=== PATIENT | female | born 1940 | race Caucasian/White ===

== ENCOUNTER → 2021-07-14 05:00 | Outpatient (REF) | payer MEDICARE, MEDICAID, SELFPAY ==
[2021-07-14 08:41] LABS: Vitamin D,25 Hydroxy 33.6 ng/mL
== END ==
LOC: OLS.SW500 05:00
PROVIDERS: Visit Provider Family Medicine
DX: E55.9 Vitamin D deficiency, unspecified (principal)
CPT/HCPCS: 36415; 82306

== ENCOUNTER → 2021-07-24 01:00 | Outpatient (REF) | payer MEDICARE, MEDICAID, SELFPAY ==
[2021-07-24 06:09] LABS: Mucous, Urine 0 SEEN /hpf (<or=2+); Red Blood Cells-Urine 0 SEEN /hpf (0-5)
[2021-07-24 06:42] LABS: Color, Urine Yellow (Yellow); Glucose, Dipstick Normal (Normal); Ketone-Dipstick Negative (Negative); Leukocyte Esterase-Dipstick 25 /ul (Negative); Nitrite-Dipstick Negative (Negative); Occult Blood-Urine Negative /ul (Negative); Protein-Dipstick 100 mg/dl (Negative); Urine Bilirubin Dipstick Negative (Negative); Urine Clarity Clear (Clear); Urine Urobilinogen Normal (Normal); Urine pH 6.5 (5.0 - 8.0)
[2021-07-24 06:48] LABS: Bacteria 1+ /hpf (None Seen); Squamous Epithelial Cells - UA 0-5 SEEN /hpf (5-10); White Blood Cells 0-5 SEEN /hpf (0-5)
== END ==
LOC: OLS.SW500 01:00
PROVIDERS: Visit Provider Family Medicine
DX: N39.0 Urinary tract infection, site not specified (principal)
CPT/HCPCS: 81001; 87086; 87088

== ENCOUNTER → 2021-11-09 | Outpatient (REF) | payer MEDICARE, MEDICAID, SELFPAY | END | disposition home or self-care (01) | LOC: OLS.SW500 06:00 | PROVIDERS: Visit Provider Family Medicine | DX: J11.1 Influenza due to unidentified influenza virus with other respiratory manifestations (principal) | CPT/HCPCS: 87804 ==

== ENCOUNTER 2021-11-16 00:40 | Emergency (ER) | payer MEDICARE, MEDICAID, SELFPAY ==
[2021-11-16 00:42] VITALS: PULSE 62; TEMP 36.7; O2SAT 97; BMI 34.2
--- NOTE | 2021-11-16 00:55 | EX.ED.DYSGE1 ---
HPI History of Present Illness Chief Complaint: General Illness Narrative Narrative: Patient lost her farhat. I pronounced him about half an hour ago. She is quite anxious and needs something to calm down. This seems quite reasonable. She denies any other symptoms. PFSH PFSH Home Medications alprazolam [Xanax] 0.25 mg PO BID PRN #5 tab 11/16/21 [Rx Last Taken Unknown] Allergy/AdvReac Type Severity Reaction Status Date / Time No Known Allergies Allergy Verified 11/16/21 00:46 Social History Smoking Status: Never smoker ROS ROS ED ROS Narrative Past medical history: Reviewed Medications: Reviewed Social history: Noncontributory Review of systems: General: No fever Cardiovascular: No chest pain Respiratory: No shortness of breath or cough Neurological: No memory loss, confusion or any focal weakness Psych: As in HPI EXAM Physical Exam Narrative Exam Narrative: Physical exam General: Patient appears quite anxious, physically he does not appear in any distress Head: Normocephalic, Atraumatic Eyes: Conjunctiva not pale ENT: Moist mucous membranes Neck: Supple, Nontender, No lymphadenopathy Cardiovascular: Regular rate, Regular rhythm Respiratory: No distress, Skin: Normal color, No rash Neurological: No focal deficit Psychological: I have to repeat myself multiple times before she answers the question although she does answer appropriately. She keeps telling me to wake her up, but otherwise she seems relatively lucid and coherent although she seems quite shaken up. Const Vital Signs: 11/16/21 00:42 Temperature 98.0 F Temperature Source Temporal Pulse Rate 62 Pulse Ox 97 Oxygen Delivery Method Room Air MDM MDM MDM Narrative Medical decision making narrative: I believe it is quite reasonable for her to have a small amount of benzodiazepines given the circumstances. I will give her a tab here in 5 tabs for home. Discharge Plan Triage Chief Complaint: General Illness ED Provider: Grabiel Manuel Dx/Rx/DC Orders Clinical Impression: Anxiety, Bereavement Instructions: Grief and Loss, ED Grief Reaction Prescriptions: New alprazolam [Xanax] 0.25 mg tablet 0.25 mg PO BID PRN (Reason: anxiety) Qty: 5 RF: 0 Primary Care Provider: Grabiel Cox Referrals: Grabiel Cox MD [Primary Care Provider] - 2 Days Disposition Disposition: Home, Self Care
[2021-11-16] MEDS: ALPRAZolam 0.25 MG Tablet 0.125 MG PO (01:15)
== END 2021-11-16 01:27 | disposition home or self-care (01) ==
PROVIDERS: Emergency Provider Emergency Medicine; PCP Family Medicine; Visit Provider Emergency Medicine
DX: F41.9 Anxiety disorder, unspecified (principal); Z63.4 Disappearance and death of family member
CPT/HCPCS: 99281; 99283

== ENCOUNTER → 2022-04-14 | Outpatient (REF) | payer MEDICARE, MEDICAID, SELFPAY ==
[2022-04-14 09:25] LABS: Hematocrit 33.1 % (37-47); Hemoglobin 11.1 g/dL (12.0-15.0); Mean Corp Hgb Conc 33.5 g/dL (32-36); Mean Corpuscular Hgb 29.9 pg (27.0-32.0); Mean Corpuscular Volume 89.2 fL (81-99); Mean Platelet Vol. 10.4 fl (6.2-12.0); Platelet Count 175 K/mm3 (150-450); RBC Distribution Width CV 13.4 % (11.6-14.6); RBC Distribution Width SD 43.9 fl (35.1-43.9); Red Blood Count 3.71 M/mm3 (4.2-5.4); White Blood Count 4.5 K/mm3 (4.4-11.0)
[2022-04-14 09:44] LABS: Anion Gap 6 (5-15); BUN 30 mg/dL (7-18); Calcium,Total 9.2 mg/dL (8.5-10.1); Chloride 105 mmol/L (98-107); Creatinine, Serum 1.11 mg/dL (0.55-1.02); EST Glomerular Filtration Rate 50 mL/min (>60); Est Glom Filt Rate - Afr Amer 61 mL/min (>60); Glucose 96 mg/dL (74-106); Potassium 4.5 mmol/L (3.5-5.1); Sodium Level 139 mmol/L (136-145)
== END ==
LOC: OLS.SW500 05:00
PROVIDERS: PCP Family Medicine; Visit Provider Family Medicine
DX: E11.9 Type 2 diabetes mellitus without complications (principal); I10 Essential (primary) hypertension
CPT/HCPCS: 36415; 80048; 85027

== ENCOUNTER → 2022-05-18 | Outpatient (REF) | payer MEDICARE, MEDICAID, SELFPAY ==
[2022-05-18 09:01] LABS: Hemoglobin A1c 6.8 % (3.8-5.6)
== END ==
LOC: OLS.SW500 07:00
PROVIDERS: PCP Family Medicine; Visit Provider Family Medicine
DX: E11.9 Type 2 diabetes mellitus without complications (principal)
CPT/HCPCS: 36415; 83036

== ENCOUNTER → 2022-08-16 | Outpatient (CLI) | payer MEDICARE, MEDICAID, SELFPAY ==
--- NOTE | 2022-08-16 13:09 | CT_ITS ---
INDICATION: CALCULUS OF KIDNEY EXAMINATION: CT ABDOMEN AND PELVIS WITHOUT CONTRAST - CT Abdomen And Pelvis W/O Contrast Injection TECHNIQUE: Helically acquired images were obtained of the abdomen and pelvis without oral or IV contrast. A radiation dose optimization technique was used for this scan. IV Contrast dosage and agent: None. Oral contrast: None. COMPARISON: None. FINDINGS: LOWER CHEST: There is a small right pleural effusion. The lack of intravenous contrast limits evaluation of solid visceral organs. LIVER: Homogeneous. No focal mass. GALLBLADDER AND BILIARY TREE: There is nonvisualization of the gallbladder. PANCREAS: No focal cystic or solid mass. SPLEEN: Normal size without focal cystic or solid mass. ADRENAL GLANDS: No nodules. KIDNEYS AND URETERS: Normal renal size and position. No hydronephrosis. PERITONEUM: No ascites or free air. No other fluid collection. BOWEL: No evidence of acute appendicitis. No stomach or bowel distension. There are diverticula arising from the colon No focal inflammatory change. LYMPH NODES: No enlarged mesenteric or retroperitoneal lymph nodes. VESSELS: Aorta is non-dilated. There are peripheral calcifications of the abdominal aorta. URINARY BLADDER: Unremarkable. REPRODUCTIVE ORGANS: No pelvic masses. ABDOMINAL WALL: No discrete abdominal or pelvic wall hernia. 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 There are degenerative changes of the lumbar spine. There is a L3 inferior endplate deformity that appears chronic. CT/Abdomen/Pelvis without Cont IMPRESSION: Atherosclerosis. Multilevel degenerative disc disease of the lumbar spine. Colonic diverticulosis. Small right pleural effusion. Electronically Signed: Viviane Mckenzie MD at 13:57 EST ,
== END | disposition home or self-care (01) ==
LOC: CT 13:06
PROVIDERS: PCP Family Medicine; Visit Provider Urology
DX: N20.0 Calculus of kidney (principal); M51.36 Other intervertebral disc degeneration, lumbar region; K57.30 Diverticulosis of large intestine without perforation or abscess without bleeding; Z96.642 Presence of left artificial hip joint
CPT/HCPCS: 74176

== ENCOUNTER → 2022-11-17 | Outpatient (REF) | payer MEDICARE, MEDICAID, SELFPAY ==
[2022-11-17 07:41] LABS: Hemoglobin A1c 7.2 % (3.8-5.6)
== END ==
LOC: OLS.SW 05:00
PROVIDERS: PCP Family Medicine; Visit Provider Family Medicine
DX: E11.9 Type 2 diabetes mellitus without complications (principal)
CPT/HCPCS: 36415; 83036

== ENCOUNTER → 2023-05-18 | Outpatient (REF) | payer MEDICARE, MEDICAID, SELFPAY ==
[2023-05-18 09:22] LABS: Hemoglobin A1c 7.4 % (3.8-5.6)
== END ==
LOC: OLS.SW 07:10
PROVIDERS: PCP Family Medicine; Visit Provider Family Medicine
DX: E11.9 Type 2 diabetes mellitus without complications (principal)
CPT/HCPCS: 36415; 83036

== ENCOUNTER → 2023-08-17 | Outpatient (REF) | payer MEDICARE, SELFPAY ==
--- OUTSIDE RECORDS SUMMARY | 2023-08-17 05:47 | XMS RPT_ITS | CCD ---
Author Name Unknown Address [address] [facility] [address] [place] [address] Organization [facility] Care Team Providers Care Portable Canteen Operator Name Role Phone Phillip Carlisle Primary Care Provider [phone] Medications Current Medications Medication Drug Class(es) Dates Sig (Normalized) Sig (Original) acetaminophen 500 mg oral tablet (4 sources) Start: 04-10-2021 take 2 tablets by mouth every eight hours acetaminophen (TYLENOL) 500 MG tablet Take 2 tablets by mouth every 8 hours 120 tablet 0 04/10/2021 Active Completed/Discontinued Medications Medication Drug Class(es) Dates Sig (Normalized) Sig (Original) acetaminophen 325 mg / HYDROcodone bitartrate 5 mg oral tablet (1 source) Opioid Agonist Start: 04-06-2021 End: 04-06-2021 HYDROcodone-acetam inophen (NORCO) 5-325 MG per tablet 1 tablet Problems Active Problems Problem Classification Problem Date Documented Date Episodic/Chronic Acute and unspecified renal failure (2 sources) Acute injury of kidney; Translations: [AVE (acute kidney injury)] Onset: 04-03-2020 04-03-2020 Acute cerebrovascular disease (11 sources) 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; Translations: [Occipital cerebral infarction] Onset: 04-02-2015 04-02-2020 Chronic Delirium, dementia, and amnestic and other cognitive disorders (3 sources) Dementia; Translations: [Unspecified dementia without behavioral disturbance] Chronic Diabetes mellitus with complications (8 sources) Neuropathy due to type 2 diabetes mellitus; Translations: [Type 2 diabetes mellitus with diabetic neuropathy, unspecified] 04-02-2020 Chronic Diabetes mellitus without complication (9 sources) Type 2 diabetes mellitus; Translations: [Type 2 diabetes mellitus with other diabetic neurological complication] Onset: 05-12-2015 Resolved: 07-10-2015 07-10-2015 Chronic Disorders of lipid metabolism (5 sources) Mixed hyperlipidemia; Translations: [Mixed hyperlipidemia] 04-02-2015 Chronic E Codes: Fall (7 sources) Fall from bed, initial encounter; Translations: [Accidental fall from bed] Resolved: 04-09-2021 11-06-2020 Episodic Esophageal disorders (4 sources) Gastroesophageal reflux disease; Translations: [Gastro-esophageal reflux disease without esophagitis] Onset: 08-08-2006 10-27-2017 Chronic Essential hypertension (7 sources) Essential hypertension; Translations: [Hypertensive disorder] 04-02-2020 Chronic Fracture of lower limb (13 sources) Closed fracture of tibia AND fibula; Translations: [Unspecified fracture of shaft of left tibia, initial encounter for closed fracture] Onset: 03-08-2021 Resolved: 04-09-2021 Episodic Late effects of cerebrovascular disease (6 sources) Late effects of cerebrovascular disease; Translations: [Visual field defect due to and following cerebrovascular accident] Onset: 02-05-2015 10-27-2017 Chronic Miscellaneous mental health disorders (1 source) Confusional state; Translations: [Confusion] Chronic Nutritional deficiencies (1 source) Vitamin D deficiency; Translations: [Vitamin D deficiency, unspecified] 04-10-2021 Chronic Occlusion or stenosis of precerebral arteries (7 sources) Carotid artery stenosis; Translations: [Occlusion and stenosis of left carotid artery] Onset: 11-15-2016 Resolved: 09-03-2018 09-03-2018 Chronic Other and ill-defined cerebrovascular disease (1 source) Occipital cerebral infarction; Translations: [Occipital cerebral infarction] Onset: 04-02-2015 12-15-2015 Chronic Other and ill-defined cerebrovascular disease (3 sources) Cerebral ischemia; Translations: [Acute cerebrovascular insufficiency] Onset: 12-05-2020 12-05-2020 Chronic Other circulatory disease (5 sources) H/O: TIA; Translations: [Personal history of transient ischemic attack (TIA), and cerebral infarction without residual deficits] 12-15-2015 Episodic Other congenital anomalies (1 source) Congenital ichthyosis of skin; 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] Onset: 10-27-2017 10-27-2017 Chronic Other congenital anomalies (3 sources) Ichthyosis; Translations: [Congenital ichthyosis, unspecified] Onset: 10-27-2017 10-27-2017 Chronic Other connective tissue disease (3 sources) Recurrent falls ; Translations: [Repeated falls] Onset: 04-06-2021 Episodic Other diseases of bladder and urethra (4 sources) Overactive bladder; Translations: [Overactive bladder] 07-22-2016 Chronic Other nervous system disorders (5 sources) Disorder of brain; Translations: [Encephalopathy, unspecified] Onset: 04-02-2020 04-02-2020 Chronic Other nutritional; endocrine; and metabolic disorders (5 sources) Morbid obesity; Translations: [Morbid (severe) obesity due to excess calories] Onset: 09-05-2019 04-02-2020 Chronic Spondylosis; intervertebral disc disorders; other back problems (1 source) Lumbar disc prolapse with radiculopathy; Translations: [Lumbar disc disease with radiculopathy] Onset: 08-08-2010 10-27-2017 Chronic Unclassified (2 sources) Protein level - finding; Translations: [Elevated troponin] Onset: 04-02-2020 04-02-2020 Urinary tract infections (3 sources) Recurrent urinary tract infection; Translations: [Urinary tract infection, site not specified] Onset: 04-10-2021 Episodic Past or Other Problems Problem Classification Problem Date Documented Date Episodic/Chronic Acute and unspecified renal failure (3 sources) Acute injury of kidney; Translations: [Acute kidney failure, unspecified] Onset: 04-03-2020 04-03-2020 Episodic Blindness and vision defects (4 sources) Left homonymous hemianopsia; Translations: [Homonymous bilateral field defects, left side] Onset: 02-05-2015 07-22-2016 Episodic Diabetes mellitus without complication (6 sources) Hyperglycemia; Translations: [Hyperglycemia, unspecified] Onset: 04-02-2020 04-02-2020 Episodic Fluid and electrolyte disorders (6 sources) Hyponatremia; Translations: [Hypo-osmolality and hyponatremia] Onset: 04-02-2020 04-02-2020 Episodic Malaise and fatigue (4 sources) Decline in functional status; Translations: [Other malaise] Onset: 11-04-2020 11-05-2020 Episodic Occlusion or stenosis of precerebral arteries (1 source) Bilateral carotid artery stenosis; Translations: [Bilateral carotid artery stenosis] Onset: 11-15-2016 Resolved: 09-03-2018 09-03-2018 Other aftercare (3 sources) Patient encounter status; Translations: [long-term (current) use of non-steroidal anti-inflammatories (NSAID)] Resolved: 10-27-2017 10-27-2017 Episodic Other connective tissue disease (5 sources) Neurological symptom; Translations: [Unspecified symptoms and signs involving the nervous system] Onset: 04-01-2020 04-01-2020 Episodic Other connective tissue disease (3 sources) Pain in left foot; Translations: [Pain in left foot] Onset: 11-05-2020 11-05-2020 Episodic Other hematologic conditions (3 sources) Protein level - finding; Translations: [Other specified abnormalities of plasma proteins] Onset: 04-02-2020 Resolved: 05-02-2020 05-02-2020 Episodic Other injuries and conditions due to external causes (4 sources) H/O: hip fracture; Translations: [Personal history of (healed) traumatic fracture] Onset: 10-20-2015 12-15-2015 Episodic Residual codes; unclassified (5 sources) Noncompliance with treatment; Translations: [Patient's noncompliance with other medical treatment and regimen] Onset: 04-02-2020 04-02-2020 Episodic Spondylosis; intervertebral disc disorders; other back problems (3 sources) Lumbar disc prolapse with radiculopathy; Translations: [Intervertebral disc disorders with radiculopathy, lumbar region] Onset: 08-08-2010 10-27-2017 Episodic Unclassified (1 source) Patient encounter status; Translations: [Encounter for long-term (current) use of non-steroidal anti-inflammatories] Resolved: 10-27-2017 10-27-2017 Results Test Name Value Interpretation Reference Range Facil ity Vital Signs Date Time Vital Sign Value Performing Clinician Faci lity 04-10-2021 06:44-0400 Body temperature 98.4 [degF] Namrata Medina MD Work Phone: [facility] Work Phone: 04-10-2021 06:44-0400 Diastolic blood pressure 85 mm[Hg] Namrata Medina MD [facility] Phone[facility] Work Phone: 04-10-2021 06:44-0400 Heart rate 84 /min Namrata Medina MD Work Phone: [facility] Work Phone: 04-10-2021 06:44-0400 Respiratory rate 18 /min Namrata Medina MD Work Phone: [facility] Work Phone: 04-10-2021 06:44-0400 SaO2% (BldA) [Mass fraction] 97 % Namrata Medina MD Work Phone: [facility] Work Phone: 04-10-2021 06:44-0400 Systolic blood pressure 141 mm[Hg] Namrata Medina MD Work Phone: [facility] Work Phone: 04-08-2021 06:06-0400 Body mass index (BMI) [Ratio] 34.23 kg/m2 Namrata Medina MD Work Phone: [facility] Work Phone: 04-08-2021 06:06-0400 Body weight 93.31 kg Namrata Medina MD Work Phone: [facility] Work Phone: 04-06-2021 02:40-0400 Body height 165.1 cm Namrata Medina MD Work Phone: [facility] Work Phone: 04-05-2020 12:16-0400 BP Diastolic 84 mm[Hg] [facility] [place], [place] 04-05-2020 12:16-0400 BP Systolic 185 mm[Hg] [facility] [place] [facility] [place] 04-05-2020 12:16-0400 Pulse (Heart Rate) 97 /min [facility] [place] 04-05-2020 12:16-0400 Pulse [facility] 99 % [facility] [place] 04-05-2020 12:13-0400 Body Temperature 97.5 [degF] [facility] [place] 04-05-2020 12:13-0400 Respiratory Rate 18 /min Ji Garcia [facility] [place], [place] 04-03-2020 14:54-0400 Height 160 cm Ji Garcia [place], [place] 04-01-2020 20:02-0400 BMI (Body Mass Index) 38.44 kg/m2 [facility] [place] 04-01-2020 20:02-0400 [facility] [place] [place] Encounters Encounter Date Encounter Type Care Provider Facility Start: 05-22-2021 End: 05-22-2021 Subsequent hospital visit by physician Gee Hagen MD Work Phone: [facility] Radiology Start: 04-06-2021 End: 04-10-2021 Evaluation and management of inpatient Namrata Medina MD Work Phone: [facility] Procedures Date Procedure Procedure Detail Performing Clinician Start: 04-10-2021 Gluc bld gluc mntr d ev cleared fda spec home use Mihai Conklin DO Work Phone: Start: 04-10-2021 Gluc bld gluc mntr d ev cleared fda spec home use Mihai Conklin DO Work Phone: Start: 04-10-2021 Gluc bld gluc mntr d ev cleared fda spec home use Yaneth Varela MD Work Phone: Start: 04-09-2021 Gluc bld gluc mntr d ev cleared fda spec home use Yaneth Varela MD Work Phone: Start: 04-09-2021 Gluc bld gluc mntr d ev cleared fda spec home use Yaneth Varela MD Work Phone: Start: 04-09-2021 25 hydroxy includes fractions if performed Ines Morris CNP Work Phone: Start: 04-09-2021 ADD ON LAB TEST Ines Morris CNP Work Phone: Start: 04-09-2021 Gluc bld gluc mntr d ev cleared fda spec home use Yaneth Varela MD Work Phone: Start: 04-09-2021 Glucose quantitative blood xcpt reagent strip Yaneth Varela MD Work Phone: Start: 04-09-2021 BASIC METABOLIC PANE L W/ REFLEX TO MG FOR LOW K Jenaro Jorgensen MD Work Phone: Start: 04-09-2021 Blood count complete automated Jenaro Jorgensen MD Work Phone: Start: 04-08-2021 Glucose quantitative blood xcpt reagent strip Yaneth Varela MD Work Phone: Start: 04-08-2021 Glucose quantitative blood xcpt reagent strip Yaneth Varela MD Work Phone: Start: 04-08-2021 Gluc bld gluc mntr d ev cleared fda spec home use Yaneth Varela MD Work Phone: Start: 04-08-2021 Gluc bld gluc mntr d ev cleared fda spec home use Yaneth Varela MD Work Phone: Start: 04-08-2021 Basic metabolic pane l calcium total Jenaro Jorgensen MD Work Phone: Start: 04-07-2021 OPERATIVE REPORT 3m Sca nning Start: 04-07-2021 Gluc bld gluc mntr d ev cleared fda spec home use Yaneth Varela MD Work Phone: Start: 04-07-2021 Radiologic examinati on tibia & fibula 2 views Jenaro Jorgensen MD Work Phone: Start: 04-07-2021 Gluc bld gluc mntr d ev cleared fda spec home use Yaneth Varela MD Work Phone: Start: 04-07-2021 Gluc bld gluc mntr d ev cleared fda spec home use Yaneth Varela MD Work Phone: Start: 04-07-2021 Gluc bld gluc mntr d ev cleared fda spec home use Yaneth Varela MD Work Phone: Start: 04-07-2021 BASIC METABOLIC PANE L W/ REFLEX TO MG FOR LOW K Jenaro Jorgensen MD Work Phone: Start: 04-07-2021 Blood count complete automated Jenaro Jorgensen MD Work Phone: Start: 04-06-2021 End: 04-06-2021 Gluc bld gluc mntr dev cleared fda spec home use Yaneth Varela MD Work Phone: Start: 04-06-2021 Gluc bld gluc mntr d ev cleared fda spec home use Namrata Medina MD Work Phone: Start: 04-06-2021 Gluc bld gluc mntr d ev cleared fda spec home use Petra Gerardozmin DO Work Phone: Start: 04-06-2021 Ct lower extremity w /o contrast material Gurpreet Negrete MD Work Phone: Start: 04-06-2021 Antibody screen Namrata Medina MD Work Phone: Start: 04-06-2021 Blood typing serologic abo Gurpreet Negrete MD Work Phone: Start: 04-06-2021 Prothrombin time Indira Negrete MD Work Phone: Start: 04-06-2021 Radiologic exam ches t single view Gurpreet Negrete MD Work Phone: Start: 04-06-2021 ORTHOPEDIC INJURY TREATMENT Namrata Medina MD Work Phone: Start: 04-06-2021 Ecg routine ecg w/le ast 12 lds w/i&r Gurpreet Negrete MD Work Phone: Start: 04-06-2021 End: 04-06-2021 Radex hip unilateral with pelvis 2-3 views Namrata Medina MD Work Phone: Start: 04-06-2021 Basic metabolic pane l calcium total Namrata Medina MD Work Phone: Start: 12-15-2020 Radex hip unilateral with pelvis 2-3 views Phillip Carlisle DO Work Phone: Start: 04-05-2020 End: 04-05-2020 Gluc bld gluc mntr dev cleared fda spec home use Nimrit K Lotey Work Phone: Start: 04-05-2020 Assay of magnesium Bran avan Ragunanthan Work Phone: Start: 04-05-2020 Assay of phosphorus inorganic Branavan Ragunanthan Work Phone: Start: 04-05-2020 Blood count complete auto&auto difrntl wbc Branavan Ragunanthan Work Phone: Start: 04-05-2020 Blood count complete automated Branavan Ragunanthan Work Phone: Start: 04-04-2020 Gluc bld gluc mntr d ev cleared fda spec home use Nimrit K Lotey Work Phone: Start: 04-04-2020 Gluc bld gluc mntr d ev cleared fda spec home use Nimrit K Lotey Work Phone: Start: 04-04-2020 Gluc bld gluc mntr d ev cleared fda spec home use Nimrit K Lotey Work Phone: Start: 04-04-2020 Gluc bld gluc mntr d ev cleared fda spec home use Nimrit K Lotey Work Phone: Start: 04-04-2020 Duplex scan extracra nial art compl bi study Izabela Pond Work Phone: Start: 04-04-2020 Assay of magnesium Bran avan Ragunanthan Work Phone: Start: 04-04-2020 Assay of phosphorus inorganic Branavan Ragunanthan Work Phone: Start: 04-04-2020 Assay of troponin quantitative Nimrit K Lotey Work Phone: Start: 04-04-2020 Blood count complete auto&auto difrntl wbc Branavan Ragunanthan Work Phone: Start: 04-04-2020 Blood count complete automated Branavan Ragunanthan Work Phone: Start: 04-03-2020 Gluc bld gluc mntr d ev cleared fda spec home use Sonalrit Payal Samaniego Work Phone: Start: 04-03-2020 Us retroperitoneal r eal time w/image limited Sonalrit Payal Samaniego Work Phone: Start: 04-03-2020 Gluc bld gluc mntr d ev cleared fda spec home use Ji Osman Work Phone: Start: 04-03-2020 Echo tthrc r-t 2d w/ wom-mode compl spec&colr d Sonalrit Payal Samaniego Work Phone: Start: 04-03-2020 Assay of urea nitrogen urine Sonalridominique Moe Jildynoelle Work Phone: Start: 04-03-2020 Creatinine other source [employer]io Moe Jildynoelle Work Phone: Start: 04-03-2020 Ecg routine ecg w/le ast 12 lds w/i&r Sonalrit Payal Jildynoelle Work Phone: Start: 04-03-2020 Gluc bld gluc mntr d ev cleared fda spec home use Sonalrit Payal Jildynoelle Work Phone: Start: 04-03-2020 Assay of troponin quantitative Basia Escobar Work Phone: Start: 04-03-2020 ADD ON LAB TEST Jovon Moe Jildynoelle Work Phone: Start: 04-03-2020 Assay of ammonia Clary N Cheek Work Phone: Start: 04-03-2020 Assay of magnesium Bran avan [employer] Work Phone: Start: 04-03-2020 Assay of phosphorus inorganic Branavan [employer] Work Phone: Start: 04-03-2020 Assay of troponin quantitative M Shiv Escobar Work Phone: Start: 04-03-2020 Blood count complete auto&auto difrntl wbc Branavan [email or web address] Work Phone: Start: 04-03-2020 25 hydroxy includes fractions if performed Sonalrit Payal Samaniego Work Phone: Start: 04-03-2020 Blood count complete automated Roberta Julian Work Phone: Start: 04-02-2020 EEG REPORT Constantino Mcneal Work Phone: Start: 04-02-2020 Assay of troponin quantitative Jovon Samaniego Work Phone: Start: 04-02-2020 Gluc bld gluc mntr d ev cleared fda spec home use iJ Osman Work Phone: Start: 04-02-2020 Mri brain brain stem w/o contrast material Roberta Julian Work Phone: Start: 04-02-2020 Gluc bld gluc mntr d ev cleared fda spec home use Nimrit Payal Samaniego Work Phone: Start: 04-02-2020 Radiologic exam abdo men 1 view Sonalrit Payal Samaniego Work Phone: Start: 04-02-2020 Iaad ia mult step me thod nos each organism Roberta Julian Work Phone: Start: 04-02-2020 STREP PNEUMONIAE ANTIGEN BarakSchoon [email or web address] Work Phone: Start: 04-02-2020 Drug screen class list a [employer]cr[employer]juan Julian Work Phone: Start: 04-02-2020 Urnls dip stick/tabl et rgnt auto w/o microscopy BarakSchoon Eliel Work Phone: Start: 04-02-2020 EEG Izabela Pond Work Phone: Start: 04-02-2020 Gluc bld gluc mntr d ev cleared fda spec home use Nimrit Payal Samaniego Work Phone: Start: 04-02-2020 Gluc bld gluc mntr d ev cleared fda spec home use Nimrit Payal Samaniego Work Phone: Start: 04-02-2020 Glucose quantitative blood xcpt reagent strip Roberta Julian Work Phone: Start: 04-02-2020 Culture bacterial quanttative colony count urine Roberta Julian Work Phone: Start: 04-02-2020 ADD ON LAB TEST Jovon Samaniego Work Phone: Start: 04-02-2020 Radiologic exam ches t single view Roberta Julian Work Phone: Start: 04-02-2020 Iadna respiratry pro be & rev trnscr 08-01 target Roberta Julian Work Phone: Start: 04-02-2020 Assay of magnesium Barak Julian Work Phone: Start: 04-02-2020 Assay of phosphorus inorganic Roberta Julian Work Phone: Start: 04-02-2020 Assay of thyroid sti mulating hormone tsh Roberta Julian Work Phone: Start: 04-02-2020 Assay of troponin quantitative Roberta Julian Work Phone: Start: 04-02-2020 Blood count complete auto&auto difrntl wbc Roberta Julian Work Phone: Start: 04-02-2020 Blood count complete automated Roberta Julian Work Phone: Start: 04-02-2020 Cyanocobalamin vitamin b-12 Roberta Julian Work Phone: Start: 04-02-2020 Hemoglobin glycosylated a1c Roberta Julian Work Phone: Start: 04-02-2020 Lipid panel Roberta chavez Work Phone: Start: 04-02-2020 Procalcitonin (pct) Bra mallika Julian Work Phone: Start: 04-02-2020 Thromboplastin time partial plasma/whole blood Roberta Julian Work Phone: Start: 04-02-2020 Gluc bld gluc mntr d ev cleared fda spec home use Ji Osman Work Phone: Start: 04-02-2020 Speech and language therapy regime Kareemjuan Desirekarishmapriya Work Phone: Start: 04-01-2020 Ecg routine ecg w/le ast 12 lds w/i&r Dimitrygodfrey Elías Work Phone: Start: 04-01-2020 POC BMP, WHOLE BLOOD Ch ristopher Morinhl Work Phone: Start: 04-01-2020 Assay of troponin quantitative Danielfreddy Morinhl Work Phone: Start: 04-01-2020 Blood count complete automated Danielfreddy Morinhl Work Phone: Start: 04-01-2020 Prothrombin time Dimitry angelicfreddy Osman Work Phone: Start: 04-01-2020 Thromboplastin time partial plasma/whole blood Ji Morinhl Work Phone: Start: 04-01-2020 Ct angiography head w/contrast/noncontrast Ji Osman Work Phone: Start: 04-01-2020 Ct head/brain w/o co ntrast material Dimitrygodfrey Elías Work Phone: Start: 04-01-2020 Ct perfusion w/contrast cbf Dimitrygodfrey Elías Work Phone: Start: 04-01-2020 Oxygen therapy [[facility] Data Set] Roberta Phippskarishmapriya Work Phone: Start: 04-01-2020 Gluc bld gluc mntr d ev cleared fda spec home use Ji Elías Work Phone: Plan of Treatment Date Care Activity Detail Author Start: 04-09-2022 Creatinine measurement Creatinine monitoring [employer] Work Phone: Start: 04-09-2022 Potassium monitoring Potassium monitoring [employer] Work Phone: Start: 12-05-2021 Creatinine measurement Creatinine monitoring [employer] Work Phone: Start: 12-05-2021 Lipid panel Lipid screen [employer] Work Phone: Start: 12-05-2021 Potassium monitoring Potassium monitoring [facility] Work Phone: Start: 06-26-2021 End: 06-26-2021 Patient encounter procedure 06/26/2021 Office Visit Orthopedic Surgery Gee Hagen MD [address] [facility] [place] [address] [place] [address] [phone] [facility] [place] Start: 06-26-2021 End: 06-26-2021 Nursing evaluation of patient and report 06/26/2021 Nurse Only Orthopedic Surgery [facility] [place] Start: 06-02-2021 End: 06-02-2021 Patient encounter procedure 06/02/2021 Office Visit Endocrinology Vandana Oscar, [employer] - [employer] OFFICER [address] [place] [address] [phone] [facility] Start: 04-08-2021 Influenza vaccination Flu vaccine (#1) [facility] Work Phone: Start: 04-02-2021 Creatinine measurement Creatinine monitoring [place], [place] Start: 04-02-2021 Lipid panel Lipid screen [place], [place] Start: 04-02-2021 Potassium monitoring Potassium monitoring [place], [place] Start: 03-06-2021 End: 03-06-2021 Patient encounter procedure 03/06/2021 Office Visit Family Medicine Phillip Carlisle, DO [address] [place] [id number] [phone] [facility] Start: 01-02-2021 End: 01-02-2021 Nursing evaluation of patient and report 01/02/2021 Nurse Only Family Medicine [facility] Start: 09-05-2020 Annual Wellness Visit (AWV) Annual Wellness Visit (AWV) [place], [place] Start: 04-08-2020 Influenza vaccination Flu vaccine (#1) [place] Start: 01-25-2019 Annual Wellness Visit (AWV) Annual Wellness Visit (AWV) [facility] Work Phone: Start: 1997 Screening for osteoporosis DEXA (modify frequency per FRAX score) [place], [place] Start: 1992 Shingles Vaccine (1 of 2) Shingles Vaccine (1 of 2) [place], [place] Start: 1961 DTaP/Tdap/Td vaccine (1 - Tdap) DTaP/Tdap/Td vaccine (1 - Tdap) [place], [place] Start: 1942 Hepatitis C screening Hepatitis C screen [facility] Work Phone: Basic Metabolic Pane l w/ Reflex to MG Basic Metabolic Panel w/ Reflex to MG Lab Routine Daily until discontinued starting 04/07/2021, 2 completed [facility] Work Phone: Immunizations Immunization Date Immunization Notes Care Provider Fa brent 06-02-2020 influenza, high dose seasonal, preservative-free Phillip Donelllla DO Work Phone: [facility] Work Phone: 06-02-2020 Influenza, Quadv, adjuvanted, 65 yrs +, IM, PF (Fluad) Phillip Donelllla DO Work Phone: [facility] Work Phone: 09-05-2019 influenza, high dose seasonal, preservative-free [facility], [place] 08-10-2018 influenza, high dose seasonal, preservative-free [facility], [place] 06-17-2017 influenza, high dose seasonal, preservative-free Phillip Petrilla DO Work Phone: [facility] Work Phone: 06-17-2017 influenza, injectabl e, quadrivalent, contains preservative [facility], [place] 07-22-2016 influenza, high dose seasonal, preservative-free Phillip Petrilla DO Work Phone: [facility] Work Phone: 07-22-2016 influenza, injectabl e, quadrivalent, contains preservative [facility], [place] 07-10-2015 pneumococcal conjuga te vaccine, 13 valent [place], [place] 05-12-2015 influenza virus vacc ine, unspecified formulation [place], [place] 06-01-2014 influenza, injectabl e, quadrivalent, contains preservative [place], [place] 01-02-2013 tetanus toxoid, adsorbed [facility], [place] 01-02-2013 tetanus toxoid, unspecified formulation [facility] , [place] 05-31-2011 influenza virus vacc ine, unspecified formulation [place], [place] 05-31-2011 influenza virus vacc ine, whole virus [place], [place] 05-31-2011 pneumococcal Conjuga te, unspecified formulation [place], [place] 05-01-2011 pneumococcal polysaccharide vaccine, 23 valent [place], [place] Payers Date Payer Category Payer Medicare [id number] [id number] [id number] Social History Date Type Detail Facility Start: 04-04-2020 End: 05-22-2021 Tobacco smoking status NHIS Never smoker [place], [place] Start: 04-04-2020 End: 05-22-2021 Tobacco use and exposure Never used [place], [place] Start: 04-04-2020 End: 05-22-2021 Alcohol intake Current non-drinker of alcohol (finding) [place], [place] Start: 03-01-2019 End: 06-09-2020 History SDOH Alcohol Frequency 1 [place], [place] Start: 1940 Sex Assigned At Not on file M [place], [place] Exposure to SARS-CoV -2 (event) Not sure [place], [place] Start: 04-08-2021 End: 05-22-2021 Alcohol intake [facility] Work Phone: Medical Equipment Procedure Code Equipment Code Equipment Origin al Text Equipment Identifier Dates 1 each by In Vit ro route 4 times daily Pt tests 4 times daily Dx 250.00 [id number] Start: 04-05-2020 End: 05-05-2020 1 each by In Vit ro route daily As needed. [id number] Start: 04-05-2020 1 each by Does n ot apply route daily [id number] Start: 04-05-2020 End: 06-22-2029 Test bid Dx 250.00 [id number] Start: 04-05-2020 Inject 1 each in to the skin 2 times daily for 5000 doses [id number] Start: 04-05-2020 End: 02-08-2027 1 each by In Vit ro route 4 times daily Pt tests 4 times daily Dx 250.00 [id number] Start: 11-15-2016 End: 04-05-2020 1 each by In Vit ro route daily As needed. [id number] Start: 06-17-2017 End: 04-05-2020 1 each by Does n ot apply route daily [id number] Start: 03-01-2019 End: 04-05-2020 Test bid Dx 250.00 [id number] Start: 06-17-2017 End: 04-05-2020 Inject 1 each in to the skin 2 times daily for 5000 doses [id number] Start: 09-05-2019 End: 04-05-2020 Inject 1 each in to the skin 2 times daily for 5000 doses [id number] Start: 12-05-2020 End: 10-10-2027 Discharge summary note 04-10-2021 Note Date & Type Note Facility 04-10-2021 Note Attestation signed by Mihai Conklin DO at 04/10/2021 12:54 PM Attending Supervising Physician's Attestation Statement The patient is a 80 y.o. female. I have performed a history and physical examination of the patient. I discussed the case with the physician acquisitions assistant. I reviewed the patient's Past Medical History, Past Surgical History, Medications, and Allergies. Chart reviewed No new issues Mild left ankle discomfort Physical Exam: Vitals: 04/08/21 1754 04/09/21 0608 04/09/21 1823 04/10/21 0644 BP: (!) 147/61 (!) 150/58 (!) 144/86 (!) 141/85 Pulse: 79 76 78 84 Resp: Temp: 98.1 ?F (36.7 ?C) 97.1 ?F (36.2 ?C) 97.2 ?F (36.2 ?C) 98.4 ?F (36.9 ?C) TempSrc: Temporal Temporal Temporal Temporal SpO2: 97% 97% 98% 97% Weight: Height: General Appearance: [x]NAD [x]Obese []Cachectic []Thin []Frail []ill-appearance Skin: Temperature []Warm []Cool / []Dry []Moist Rash []Yes []No Tattoo(s) []Yes []No Heent: Pupils round and react []Yes []No Sclera []Icteric [x]Non-Icteric Conjunctiva []Injected [x]Non-Injected Dentitian [][place] Teeth []Dentures []Poor dentition Oral Mucosa [][place] []Moist []Dry PALA []Yes []No Neck: Thyromegaly []Yes []No Jvd []Present []Absent Lungs: [x]Clear []Crackles []Wheezes [][place] Respiratory effort []Labored [x]Non-Labored Accessory muscle use []Yes []No Heart: [x]RRR []Irregularly Irregular []murmur present []murmur absent Abdomen: [x]Soft Bowel Sounds []Present []Absent []Diminished []Hyperactive []Hypoactive []Tender []Non-Tender []Distended [x]Non-distended Hernia []Present []Absent Hepatomegaly []Absent []Present Splenomegaly []Absent []Present []Surgical Scar present Extremities: Cyanosis []Present []Absent Upper extremity Edema []Absent []Present Lower extremity Edema []Absent []Present Neurologic: Seizure activity []Present [x]Absent Tremor []Present [x]Absent Follows Commands []Yes []No []Unresponsive to verbal Psych: Alert [x]yes []no Oriented []x0 []x1 []x2 []x3 Affect [x]Normal []Flat []Aggitated []Calm Suicidal [] Yes [] No Impression/Plan I reviewed and agree with the findings and plan documented in her note . Discussed with TCC. Stable for DC to SNF today. Appreciate endo rec's. >30 minutes was spent in caring for this patient in combination with CLA[facility] Discharge Summary with Discharge DayProgress Note Maryellen Eisenberg : 1940 ADMIT DATE: 04/06/2021 DISCHARGE DATE: 04/10/2021 PRIMARY CARE PHYSICIAN: Phillip Carlisle DO VISIT STATUS: Admission CODE STATUS: Full Code DISCHARGE DIAGNOSES: Active Problems: Type 2 diabetes mellitus without complication, with long-term current use of insulin (HCC) Essential hypertension Mixed hyperlipidemia History of TIA (transient ischemic attack) Hyperglycemia Hyponatremia Declining functional status Frequent falls Uncontrolled insulin-treated type 2 diabetes mellitus (HCC) Dementia without behavioral disturbance (HCC) Recurrent UTI Resolved Problems: Fall Closed left ankle fracture, initial encounter Closed displaced pilon fracture of left tibia with malunion Closed fracture of shaft of left fibula with malunion HOSPITAL COURSE: Pt is a 80 yo female with PMHx of HTN, HLD, AIDAN s/p CEA, CVA (w/ residual L sided deficits), T2DM, OAB, and GERD presenting after multiple falls at home. Found to have comminuted ankle Fx of the distal tibia and fibula for which she underwent reduction and fixation with intramedullary nail. She is to remain NWB on the LLE and follow up with Dr. Hagen in 2 weeks. Patient is being discharged in stable condition to SNF and agrees with plan. Understands importance of close follow up with orthopedics. The problems as detailed below were addressed on admission. Pain control with leona tylenol and prn oxycodone x 3 days, OARRS reviewed. #Comminuted Fx distal L tibial diaphysis, Comminuted Fx distal third L fibular shaft s/p day 3 reduction and fixation #OA #Functional Decline and frequent falls? - Follow up with Dr. Hagen in 2 weeks. Pt is to remain NWB in the LLE in the interim. Pain control?w/ scheduled tylenol and prn oxycodone with scheduled bowel regimen if using opiates. ? #Uncontrolled IDDMII w/ polyneuropathy & hyperglycemia? - Endo consulted d/t hyperglycemia, and insulin changed to lantus 50U nightly with humalog 15U TID WC ? #Hyponatremia - Improving, repeat BMP in ~ 1 week. Suspect related to Poor PO intake ? #HTN #HLD? - lisinopril 20mg qd, continue diltiazem 240mg BID - Continue atorvastatin 80mg qd ? #Hx CVA?w/ reported chronic LLE weakness #AIDAN s/p CEA -?Continue ASA. Stop plavix p (more content not included)... [facility] History of Present illness Narrative 04-10-2021 Sejal Marcelino, LINUX [employer]IX SYSTEM ADMINISTRATOR - 04/10/2021 10:05 AM Rowan Gold OTA - 04/10/2021 9:58 AM Jodie Andersen PA - 04/10/2021 9:33 AM Jodie Andersen PA - 04/09/2021 8:04 AM EDT Note Date & Type Note Facility 04-10-2021 History of Present illness Narrative Physical Therapy Facility/Department: [facility] Daily Treatment Note NAME: Maryellen Eisenberg : 1940 Date of Service: 04/10/2021 Discharge Recommendations: (facility based therapy) Assessment Body structures, Functions, Activity limitations: Decreased functional mobility ;Decreased ADL status;Decreased strength;Decreased cognition;Decreased balance;Decreased posture;Increased pain;Decreased endurance Assessment: Pt present with the above deficits requiring max assist x 2 for bed mobility and with attempts of standing. Pt most limited by cognition, resistant to stand. Rec facility based therapy upon discharge. Treatment Diagnosis: pt admitted with fall, closed fracture L tib/fib s/p IM maria isabel L distal tibial fracture 04/07 REQUIRES PT FOLLOW UP: Yes Activity Tolerance Activity Tolerance: Patient limited by cognitive status Patient Diagnosis(es): The primary encounter diagnosis was Closed fracture of left tibia and fibula, initial encounter. Diagnoses of Fall, initial encounter, Closed displaced comminuted fracture of shaft of left fibula with malunion, subsequent encounter, Closed displaced pilon fracture of left tibia with malunion, and Recurrent UTI were also pertinent to this visit. has a past medical history of Carotid artery occlusion with infarction ([facility]), Carotid artery stenosis, Colonoscopy refused, CVA (cerebral vascular accident) ([facility]), CVA, old, homonymous hemianopsia, Diabetic neuropathy associated with type 2 diabetes mellitus ([facility]), Dislocation of left shoulder joint, Essential hypertension, GERD with stricture, History of fracture of left hip, History of shingles, History of TIA (transient ischemic attack), Ichthyosis, Lumbar disc disease with radiculopathy, Mixed hyperlipidemia, and OAB (overactive bladder). has a past surgical history that includes Cholecystectomy (1984); Hysterectomy, total abdominal (N/A, 1984); Colonoscopy (2006); Carotid endarterectomy (Right, 2007); Hip fracture surgery (Left, 10/20/2015); and Cataract removal (Bilateral, 2011). Restrictions Restrictions/Precautions Restrictions/Precautions: Weight Bearing, Fall Risk Required Braces or Orthoses?: No Lower Extremity Weight Bearing Restrictions Left Lower Extremity Weight Bearing: Non Weight Bearing Position Activity Restriction Other position/activity restrictions: purewick, +bed alarm Subjective General Chart Reviewed: Yes Family / Caregiver Present: No Subjective Subjective: Pt in bed, HOB elevated, eyes closed and agreeable to PT with encouragement. Pain Screening Patient Currently in Pain: Yes (Initially pt said no pain but with movement c/o pain in left leg) Pain Assessment Pain Type: Acute pain Pain Location: Leg Pain Orientation: Left Objective Bed mobility Supine to Sit: Maximum assistance;2 Person assistance Sit to Supine: Maximum assistance;2 Person assistance Scooting: Maximal assistance;2 Person assistance Comment: HOB elevated and draw sheet used. Pt resistant with movement at times, encouragement needed. Transfers Comment: Multiple attempts with transfers, pt very resistant with attempts so then disposed transfers trial with each attempt, not safe. Balance Comments: sitting at EOB for several mins, UE support, pt with retrograde balance, max assist for balance and able to progress to min assist; dynamic sitting with bilateral weight shifting, min/mod assist for balance. AM-PAC Score [facility] Inpatient Mobility Raw Score : 6 (04/10/211004) [facility] Inpatient T-Scale Score : 23.55 (04/10/211004) Mobility Inpatient CMS 0-100% Score: 100 (04/10/211004) Mobility Inpatient CMS G-Code Modifier : CN (04/10/211004) Goals Short term goals Time Frame for Short term goals: 2 weeks Short term goal 1: indep supine <-> sit; not met Short term goal 2: min assist sit <-> stand NWB LLE; not met Short term goal 3: min assist ambulate 10ft with walker NWB LLE; not addressed Patient Goals Patient goals : to go home Plan Plan Times per week: 3-5x Plan weeks: 2 weeks Current Treatment Recommendations: Strengthening, Balance Training, Functional Mobility Training, Transfer Training, ADL/Self-care Training, Gait Training, Equipment Evaluation, Education, & procurement, Patient/Caregiver Education & Training, Safety Education & Training, Home Exercise Program Safety Devices Type of devices: Call light within reach, Gait belt, Patient at risk for falls, Left in bed, Bed alarm in place Therapy Time Individual Concurrent Group Co-treatment Time In 902 Time Out 09 Minutes 23 Timed Code Treatment Minutes: 23 Minutes (fa x 2) Sejal Marcelino PTA Occupational Therapy Facility/Department: [facility] Daily Treatment Note NAME: Maryellen Eisenberg : 1940 Date of Service: 04/10/2021 Discharge Recommendations: (Facility based therapies) Assessment Performance deficits / Impairments: Decreased coordination;Decreased endurance;Decreased ADL status;Decreased posture;Decreased functional mobility ;Decreased balance;Decreased strength;Decreased safe awareness;Decreased high-level IADLs;Decreased cognition Assessment: Pt confused and disoriented. Extra time given for encouragement to complete static spraying machine operator attempt to have patient sit in bedside chair. Recommend facility based therapy at d/c. Prognosis: Fair REQUIRES OT FOLLOW UP: Yes Safety Devices Safety Devices in place: Yes Type of devices: All fall risk precautions in place;Bed alarm in place;Call light within reach;Gait belt;Patient at risk for falls;Left in bed;Nurse notified Restraints Initially in place: No Patient Diagnosis(es): The primary encounter diagnosis was Closed fracture of left tibia and fibula, initial encounter. Diagnoses of Fall, initial encounter, Closed displaced comminuted fracture of shaft of left fibula with malunion, subsequent encounter, Closed displaced pilon fracture of left tibia with malunion, and Recurrent UTI were also pertinent to this visit. has a past medical history of Carotid artery occlusion with infarction ([facility]), Carotid artery stenosis, Colonoscopy refused, CVA (cerebral vascular accident) ([facility]), CVA, old, homonymous hemianopsia, Diabetic neuropathy associated with type 2 diabetes mellitus ([facility]), Dislocation of left shoulder joint, Essential hypertension, GERD with stricture, History of fracture of left hip, History of shingles, History of TIA (transient ischemic attack), Ichthyosis, Lumbar disc disease with radiculopathy, Mixed hyperlipidemia, and OAB (overactive bladder). has a past surgical history that includes Cholecystectomy (1984); Hysterectomy, total abdominal (N/A, 1984); Colonoscopy (2006); Carotid endarterectomy (Right, 2007); Hip fracture surgery (Left, 10/20/2015); and Cataract removal (Bilateral, 2011). Restrictions Restrictions/Precautions Restrictions/Precautions: Weight Bearing, Fall Risk Required Braces or Orthoses?: No Lower Extremity Weight Bearing Restrictions Left Lower Extremity Weight Bearing: Non Weight Bearing Position Activity Restriction Other position/activity restrictions: purewick, +bed alarm Subjective General Chart Reviewed: Yes Patient assessed for rehabilitation services?: Yes Family / Caregiver Present: No Diagnosis: Left tib/fib fx Subjective Subjective: Pt in bed. (+)Confusion, Left LE wrapped in an salvatore wrap. General Comment Comments: Therapist wore PPE in accordance with facility safety protocol Vital Signs Patient Currently in Pain: No Orientation Objective Balance Sitting Balance: Maximum assistance Standing Balance Comment: Min to max assist for static seated balance Bed mobility Supine to Sit: Maximum assistance;2 Person assistance Sit to Supine: Maximum assistance;2 Person assistance Scooting: Maximal assistance;2 Person assistance Comment: HOB elevated, pt flucuated in static seated EOB balance from min at 75% to mod/max 25%, draw sheet used. Multiple attempts for sit <> stand; pt adamently refused. Plan Plan Times per week: 3-5x/wk Plan weeks: 4 weeks Current Treatment Recommendations: Strengthening, Patient/Caregiver Education & Training, Home Management Training, Balance Training, Functional Mobility Training, Endurance Training, Cognitive Reorientation, Safety Education & Training, Self-Care / ADL, Cognitive/Perceptual Training Plan Comment: Follow OT POC Goals Short term goals Time Frame for Short term goals: 4 weeks Short term goal 1: LE dressing with use of AE prn with mod assist.-not addressed Short term goal 2: BSC transfer with min assist.-not addressed Short term goal 3: Static standing balance during unilateral UE task x 2-3 mins with supervision.- progressing Short term goal 4: Ox3, 100% of treatment time...may use visual aides.-progressing Patient Goals Patient goals : None stated. Therapy Time Individual Concurrent Group Co-treatment Time In 902 Time Out 925 Minutes 23 Timed Code Treatment Minutes: 23 Minutes (2 fun act) NNAMDI Car[place] Family Communication Number Called: [phone] Relationship to Patient: Daughter in law, Jessica Phone Call Outcome: I spoke with the individual listed above. Family Quality Coordinator Updated on the Following: A&P. Understands plan to stop nitrofurantoin and follow up as OP with urology. Agreeable to discharge today to SNF with insulin dose adjustments as noted in discharge summary. Images from the original note were not included. [facility] Progress Note Maryellen Eisenberg : 1940(80 y.o.) Date: 04/09/2021 8:04 AM Subjective: The patient complains of L ankle pain, ambulatory dysfunction Pt is a 80 yo female with PMHx of HTN, HLD, AIDAN s/p CEA, CVA (w/ residual L sided deficits), T2DM, OAB, and GERD presenting after 4 falls at home in the past two days. Found to have multiple comminuted ankle fx's for which she underwent L tibial intramedullary nail. Okay for diet and DVT prophylaxis per ortho. Denies ankle pain today however states that I wouldn't tell you even if it was there . States PO intake has been improving. Occasionally becomes tearful on exam upon realizing that she is being discharged to SNF, often requests to see family members during interview. Denies chest pain, SOB, abd pain, change in bowel or bladder habits. Scheduled Meds: insulin 70-30 35 Units SubCUTAneous BID insulin lispro 0-18 Units SubCUTAneous TID WC sodium chloride flush 5-40 mL IntraVENous 2 times per day atorvastatin 80 mg Oral Nightly dilTIAZem 240 mg Oral BID lisinopril 20 mg Oral Daily sodium chloride flush 10 mL IntraVENous 2 times per day enoxaparin 40 mg SubCUTAneous Daily acetaminophen 1,000 mg Oral 3 times per day Continuous Infusions: sodium chloride sodium chloride dextrose PRN Meds:oxyCODONE OR oxyCODONE, sodium chloride flush, sodium chloride, sodium chloride flush, sodium chloride, promethazine OR ondansetron, polyethylene glycol, sennosides-docusate sodium, glucose, dextrose, glucagon (rDNA), dextrose Review of Systems Constitutional: Negative for chills and fever. Respiratory: Negative for cough and shortness of breath. Cardiovascular: Negative for chest pain. Gastrointestinal: Negative for abdominal pain, constipation and diarrhea. Musculoskeletal: Positive for arthralgias and gait problem. Neurological: Negative for dizziness, weakness, light-headedness and numbness. Interval Pertinent History: Social History Tobacco Use Smoking status: Never Smoker Smokeless tobacco: Never Used Substance Use Topics Alcohol use: No Alcohol/week: 0.0 standard drinks Objective: Patient Vitals for the past 24 hrs: BP Temp Temp src Pulse Resp SpO2 04/09/21 0608 (!) 150/58 97.1 F (36.2 C) Temporal 76 17 97 % 04/08/21 1754 (!) 147/61 98.1 F (36.7 C) Temporal 79 19 97 % Average, Min, and Max for last 24 hours Vitals: TEMPERATURE: Temp Av.6 F (36.4 C) Min: 97.1 F (36.2 C) Max: 98.1 F (36.7 C) RESPIRATIONS RANGE: Resp Av Min: 17 Max: 19 PULSE RANGE: Pulse Av.5 Min: 76 Max: 79 BLOOD PRESSURE RANGE: Systolic (24hrs), Av , Min:147 , Max:150 ; Diastolic (24hrs), Av, Min:58, Max:61 PULSE OXIMETRY RANGE: SpO2 Av % Min: 97 % Max: 97 % No intake/output data recorded. Physical Exam Constitutional: General: She is not in acute distress. Appearance: She is obese. She is not ill-appearing. Comments: Cooperative elderly female resting in bed, appears comfortable. Eyes: Conjunctiva/sclera: Conjunctivae normal. Cardiovascular: Rate and Rhythm: Normal rate and regular rhythm. Pulses: Normal pulses. Heart sounds: Normal heart sounds. Pulmonary: Effort: Pulmonary effort is normal. Breath sounds: Normal breath sounds. Abdominal: General: Bowel sounds are normal. There is no distension. Palpations: Abdomen is soft. Tenderness: There is no abdominal tenderness. Musculoskeletal: General: Signs of injury present. Comments: LLE bandaged. Motor function and sensory function intact Skin: General: Skin is warm and dry. Neurological: Mental Status: She is alert. Motor: No weakness. Comments: A&O x 2 to self and location Psychiatric: Mood and Affect: Mood normal. Affect is tearful. Behavior: Behavior normal. Lab Results Component Value Date WBC 6.4 04/09/2021 HGB 9.2 (L) 04/09/2021 HCT 27.2 (L) 04/09/2021 MCV 84.3 04/09/2021 PLT 130 (L) 04/09/2021 Lab Results Component Value Date NA 130 04/09/2021 K 4.5 04/09/2021 CL 102 04/09/2021 CO2 22 04/09/2021 BUN 37 04/09/2021 CREATININE 0.99 04/09/2021 GLUCOSE 314 04/09/2021 CALCIUM 8.8 04/09/2021 Lab Results Component Value Date LABA1C 10.7 (A) 04/08/2021 Additional results of the last 24 hours have been reviewed. Assessment and Plan: Active Problems: Type 2 diabetes mellitus without complication, with long-term current use of insulin (HCC) Essential hypertension Mixed hyperlipidemia History of TIA (transient ischemic attack) Hyperglycemia Hyponatremia Declining functional status Fall Closed left ankle fracture, initial encounter Closed displaced pilon fracture of left tibia with malunion Closed fracture of shaft of left fibula with malunion Frequent falls Resolved Problems: * No resolved hospital problems. * #Comminuted oblique fracture of the distal L tibial diaphysis #Comminuted fracture of the distal third L fibular shaft #? L lateral malleolus fracture #OA #Functional Decline and frequent falls - XR L ankle with comminuted oblique Fx of the distal L tibial diaphysis with lateral displacement of the distal fracture fragment and slight overriding of the fracture fragments. - Comminuted fracture of the distal third fibular shaft with slight lateral angulation of the distal fracture fragment. - ? Area of subtle horizontal curvilinear lucency involving the lateral malleolus which may reflect a nondisplaced fracture - S/p day #2 intramedullary nail. Okay for DVT prophylaxis per ortho - PT/OT evals, placement recommended. Family selected facilities and precert pending - Pain control w/ scheduled tylenol and prn oxycodone. #Uncontrolled IDDMII w/ polyneuropathy & hyperglycemia - A1c 10.7 - Persistent hyperglycemia prompted endo consult, insulin regimen 45 U nightly, humalog 15U TID WC, medium dose SSI. Hypoglycemia treatment per protocol and carb control diet - Home doses TBD #Hyponatremia - Na 130, suspect 2/2 poor PO intake. If no improvement tomorrow will check urine studies #HTN #HLD - lisinopril 20mg qd, continue diltiazem 240mg BID - Continue atorvastatin 80mg qd #Hx CVA w/ reported chronic L-sided deficits #AIDAN s/p CEA - Continue ASA. Stop plavix per discussion with family #Hx Recurrent UTI per family - on chronic nitrofurantoin per PCP for 3 UTI's in the past year. Family agreeable to holding while admitted. Curbsided with ID yesterday who recommended discontinuing. - Family requested urology consult, will curbside today for recs and provide referral prn for OP follow up #Obesity Code Status: Full code DVTProphylaxis: SCDs Disposition:await showroom consultant recommendations and await placement I spent over 51% of total time providing counseling or incoordination of care: > 35 minutes discussed with nurse, patient and family updated, I personally examined the patient and I personally reviewed chart, data, labs radiology reports Discussed with Dr. Varela, will discuss with urology, updated pt's family Family Communication Number Called: [phone] Relationship to Patient: Daughter in law, Jessica Phone Call Outcome: I spoke with the individual listed above. Family Quality Coordinator Updated on the Following: A&P. Requested urology consult 7AM-4PM Please Perfect serve Jodie Minor PA-C 6PM-6AM please page: [facility] Internal Medicine Associated attestation - Yaneth Varela MD - 04/09/2021 4:09 PM EDT Attending Supervising Physician's Attestation Statement The patient is a 80 y.o. female. I have performed a history and physical examination of the patient. I discussed the case with the physician acquisitions assistant. Pt tearful today; asking if she will be able to go home. Says ankle pain is fine but is sick of being in the hospital. Per RN, family brought pt hot chocolate last night but otherwise doesn't think pt snacking on other foods. I reviewed the patient's Past Medical History, Past Surgical History, Medications, and Allergies. Physical Exam: Vitals: 04/07/21 2257 04/08/21 0606 04/08/21 1754 04/09/21 0608 BP: 113/88 (!) 157/72 (!) 147/61 (!) 150/58 Pulse: 86 104 79 76 Resp: Temp: 97.5 F (36.4 C) 98.3 F (36.8 C) 98.1 F (36.7 C) 97.1 F (36.2 C) TempSrc: Temporal Temporal Temporal Temporal SpO2: 97% 96% 97% 97% Weight: 205 lb 11.2 oz (93.3 kg) Height: General: NAD, obese, tearful HEENT: NC, AT Cardio: RRR, normal S1/S2. No MRG Pulm: CTAB. No wheezes or crackles Abd: Soft, NTTP, ND Ext: LLE wrapped. Impression/Plan I reviewed and agree with the findings and plan documented in her note . Acute L comminuted fx of distal tibia and distal fibula -Pt presented after fall and found to have fx. -Ortho consulted; reduction and fixation done 04/07. -PRN oxycodone. -PT/OT DM2 -Takes 70-30 at home and does 22u AM and 28u PM. -BS in 300-400s despite increase in insulin regimen. Consulting endocrine. Hx CVA -On ASA/plavix, however on chart review appears plavix should have been stopped 3 weeks after CVA per neuro notes (~ 04/2020). Discussion had w/ family and plavix stopped. HTN -Continue cardizem and lisinopril. Dispo: Likely ready tmrw pending improved BS control Rest of plan per PA note. I spent over 51% of total time providing counseling or in cooridnation of care: >35 minutes. I reviewed the chart, data, labwork, and images. Plan discussed w/ pt and PA. Department of Orthopedic Surgery Progress Note SUBJECTIVE: No acute events at this time. Patient confused and AOx1. OBJECTIVE: General: AOx1, NAD VITALS: BP (!) 150/58 Pulse 76 Temp 97.1 F (36.2 C) (Temporal) Resp 17 Ht 5' 5 (1.651 m) Wt 205 lb 11.2 oz (93.3 kg) SpO2 97% BMI 34.23 kg/m MSK exam: LLE: Dressing C/D/I Mild TTP about LLE, compartments soft/compressible No pain with passive stretch of left foot SILT S/S/SP/DP/T nerve distribution +Toe wiggle BCR to all 5 digits Labs: CBC: Lab Results Component Value Date WBC 6.4 04/09/2021 WBC 7.2 10/15/2015 RBC 3.23 04/09/2021 HGB 9.2 04/09/2021 HCT 27.2 04/09/2021 MCV 84.3 04/09/2021 MCH 28.4 04/09/2021 MCHC 33.7 04/09/2021 RDW 13.9 04/09/2021 PLT 130 04/09/2021 MPV 9.5 04/09/2021 BMP: Lab Results Component Value Date NA 134 04/08/2021 K 4.4 04/08/2021 CL 105 04/08/2021 CO2 21 04/08/2021 BUN 25 04/08/2021 LABALBU 3.9 12/05/2020 CREATININE 0.83 04/08/2021 CALCIUM 8.7 04/08/2021 GFRAA >60 10/15/2015 LABGLOM 48.1 04/01/2020 GLUCOSE 466 04/08/2021 Type and Screen: Lab Results Component Value Date LABABO O 04/06/2021 RH POS 04/06/2021 LABANTI NEG 04/06/2021 INR: Lab Results Component Value Date INR 1.0 04/06/2021 CRP: No results found for: CRP ESR: No results found for: SEDRATE ASSESSMENT AND PLAN: A/P: This is a 80 y.o. female s/p L Tibial IMN -No plans for RTOR -NWB LLE -Ok for diet from ortho perspective -Ok for DVT ppx from ortho perspective -PT/OT -Ice & elevate -Keep dressing c/d/i, ok to replace as necessary -Neurovascular/skin checks -f/u OP with Dr. Hagen in 2 weeks -Orthopedic surgery to sign off, please page network control operators supervisor resident with questions or concerns. Chuck Oreilly MD PGY-2 Orthopedic Surgery Pager [phone] Nutrition rescreen completed. Chart reviewed. Patient to be monitored and followed by the diet molding process technician. Physical Therapy Facility/Department: [facility] Initial Assessment NAME: Maryellen Eisenberg : 1940 Date of Service: 04/08/2021 Discharge Recommendations: (facility based therapy) Assessment Body structures, Functions, Activity limitations: Decreased functional mobility ;Decreased ADL status;Decreased strength;Decreased cognition;Decreased balance;Decreased posture;Increased pain Assessment: pt admitted with fall, closed fracture L tib/fib s/p IM maria isabel L distal tibial fracture 04/07. pt mod assist of 2 overall for functional mobility. pt limited by cognition - significant confusion and talked about jevon shermansite attempts to redirect. pt unable to maintain NWB LLE. recommend facility based therapy upon disch. Treatment Diagnosis: pt admitted with fall, closed fracture L tib/fib s/p IM maria isabel L distal tibial fracture 04/07 Decision Making: Medium Complexity REQUIRES PT FOLLOW UP: Yes Patient Diagnosis(es): The primary encounter diagnosis was Closed fracture of left tibia and fibula, initial encounter. A diagnosis of Fall, initial encounter was also pertinent to this visit. has a past medical history of Carotid artery occlusion with infarction (HCC), Carotid artery stenosis, Colonoscopy refused, CVA (cerebral vascular accident) ([facility]), CVA, old, homonymous hemianopsia, 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), Dislocation of left shoulder joint, Essential hypertension, GERD with stricture, History of fracture of left hip, History of shingles, History of TIA (transient ischemic attack), Ichthyosis, Lumbar disc disease with radiculopathy, Mixed hyperlipidemia, and OAB (overactive bladder). has a past surgical history that includes Cholecystectomy (1984); Hysterectomy, total abdominal (N/A, 1984); Colonoscopy (2006); Carotid endarterectomy (Right, 2007); Hip fracture surgery (Left, 10/20/2015); and Cataract removal (Bilateral, 2011). Restrictions Restrictions/Precautions Restrictions/Precautions: Weight Bearing, Fall Risk Required Braces or Orthoses?: No Lower Extremity Weight Bearing Restrictions Left Lower Extremity Weight Bearing: Non Weight Bearing Subjective General Chart Reviewed: Yes Patient assessed for rehabilitation services?: Yes Family / Caregiver Present: No Diagnosis: pt admitted with fall, closed fracture L tib/fib s/p IM maria isabel L distal tibial fracture 04/07 Pain Screening Patient Currently in Pain: Yes (left leg once positioning back in bed, unable to provide number rating) Orientation Orientation Orientation Level: Oriented to place;Oriented to person;Disoriented to time (oriented to fall, reoriented to surg and lef fracture,) Social/Functional History Social/Functional History Lives With: () Type of Home: House Home Layout: One level Home Access: Stairs to enter with rails Entrance Stairs - Number of Steps: 1-2 Bathroom Shower/Tub: Tub/Shower unit, Shower chair with back Bathroom Toilet: Standard Bathroom Equipment: Shower chair Bathroom Accessibility: Accessible Home Equipment: (FWW) Receives Help From: Family ADL Assistance: Needs assistance Homemaking Assistance: Needs assistance Ambulation Assistance: Independent Transfer Assistance: Independent Active Service Architect: No Occupation: Retired Additional Comments: Assist with ADL's. Assist with cooking, cleaning, & laundry. Family assists with transportation needs. Transfers with indep. Amb with FWW. Cognition Cognition Arousal/Alertness: Delayed responses to stimuli Following Commands: Follows one step commands with repetition;Follows one step commands with increased time Attention Span: Difficulty attending to directions Memory: Decreased recall of biographical Information;Decreased recall of precautions;Decreased recall of recent events Safety Judgement: Decreased awareness of need for assistance;Decreased awareness of need for safety Insights: Not aware of deficits Initiation: Requires cues for all Sequencing: Requires cues for all Objective AROM RLE (degrees) RLE AROM: WFL AROM LLE (degrees) LLE General AROM: left hip WFL, left knee 25% observed - + surgical bandage from thigh to ankle Strength RLE Comment: 3/5 Strength LLE Comment: not tested secondary to recent surgery Bed mobility Supine to Sit: Moderate assistance;2 Person assistance Sit to Supine: Moderate assistance;2 Person assistance Scooting: Moderate assistance;2 Person assistance Comment: max verbal cues Transfers Sit to Stand: Moderate Assistance;2 Person Assistance Stand to sit: Moderate Assistance;2 Person Assistance Comment: with FWW; unable to maintain NWB LLE despite max verbal cues and education Ambulation Ambulation?: No (unable to maintain NWB LLE while standing) Balance Sitting - Static: Good Standing - Static: Poor Comments: sat on EOB with supervision. scooting to EOB with supervision for balance and max assist to scoot. static stance with mod assist of 2 - heavy lean to the L and unable to maintain NWB LLE. Plan Plan Times per week: 3-5x Plan weeks: 2 weeks Current Treatment Recommendations: Strengthening, Balance Training, Functional Mobility Training, Transfer Training, ADL/Self-care Training, Gait Training, Equipment Evaluation, Education, & procurement, Patient/Caregiver Education & Training, Safety Education & Training, Home Exercise Program Safety Devices Type of devices: Call light within reach, Gait belt, Patient at risk for falls, Left in bed, Bed alarm in place, Nurse notified AM-PAC Score [facility] Inpatient Mobility Raw Score : 6 (04/08/21933) [facility] Inpatient T-Scale Score : 23.55 (04/08/21933) Mobility Inpatient CMS 0-100% Score: 100 (04/08/21933) Mobility Inpatient CMS G-Code Modifier : CN (04/08/21933) Goals Short term goals Time Frame for Short term goals: 2 weeks Short term goal 1: indep supine <-> sit Short term goal 2: min assist sit <-> stand NWB LLE Short term goal 3: min assist ambulate 10ft with walker NWB LLE Patient Goals Patient goals : to go home Therapy Time Individual Concurrent Group Co-treatment Time In 0855 Time Out 0915 Minutes 20 Patient's Physical Therapy Plan of Care supervision is transferred to [facility] Rehab Department Physical Therapist. Goals and/or treatment plan was established in collaboration with patient/family/other representatives. This physical therapist wore mask & gloves during therapy session. Yakelin Samano PT, DPT Occupational Therapy Occupational Therapy Initial Assessment Date: 04/08/2021 Patient Name: Maryellen Eisenberg : 1940 Date of Service: 04/08/2021 Discharge Recommendations: (Facility based therapies) Assessment Performance deficits / Impairments: Decreased coordination;Decreased endurance;Decreased ADL status;Decreased posture;Decreased functional mobility ;Decreased balance;Decreased strength;Decreased safe awareness;Decreased high-level IADLs;Decreased cognition Assessment: Pt presents with the above deficits and requires mod assist x 2 for bed mobility and transfers, and max assist for ADL's. Pt is a fall risk and would benefit from continued therapies to maximize potential. Recommend facility based therapies at discharge. Prognosis: Fair Decision Making: Medium Complexity REQUIRES OT FOLLOW UP: Yes Activity Tolerance Activity Tolerance: Patient limited by fatigue;Patient limited by pain;Treatment limited secondary to decreased cognition Safety Devices Safety Devices in place: Yes Type of devices: All fall risk precautions in place;Bed alarm in place;Call light within reach;Gait belt;Patient at risk for falls;Left in bed;Nurse notified Restraints Initially in place: No Patient Diagnosis(es): The primary encounter diagnosis was Closed fracture of left tibia and fibula, initial encounter. A diagnosis of Fall, initial encounter was also pertinent to this visit. has a past medical history of Carotid artery occlusion with infarction ([facility]), Carotid artery stenosis, Colonoscopy refused, CVA (cerebral vascular accident) ([facility]), CVA, old, homonymous hemianopsia, Diabetic neuropathy associated with type 2 diabetes mellitus ([facility]), Dislocation of left shoulder joint, Essential hypertension, GERD with stricture, History of fracture of left hip, History of shingles, History of TIA (transient ischemic attack), Ichthyosis, Lumbar disc disease with radiculopathy, Mixed hyperlipidemia, and OAB (overactive bladder). has a past surgical history that includes Cholecystectomy (1984); Hysterectomy, total abdominal (N/A, 1984); Colonoscopy (2006); Carotid endarterectomy (Right, 2007); Hip fracture surgery (Left, 10/20/2015); and Cataract removal (Bilateral, 2011). Restrictions Restrictions/Precautions Restrictions/Precautions: Weight Bearing, Fall Risk Required Braces or Orthoses?: No Lower Extremity Weight Bearing Restrictions Left Lower Extremity Weight Bearing: Non Weight Bearing Subjective General Chart Reviewed: Yes Patient assessed for rehabilitation services?: Yes Family / Caregiver Present: No Diagnosis: Left tib/fib fx Subjective Subjective: Pt in bed. (+)Confusion noted with conversation. Left LE wrapped in an salvatore wrap. General Comment Comments: Pt presents with fall and Left LE pain. Pt has fallen 4x's in the last 1.5 days. Patient Currently in Pain: Yes (left leg once positioning back in bed, unable to provide number rating) Social/Functional History Social/Functional History Lives With: () Type of Home: House Home Layout: One level Home Access: Stairs to enter with rails Entrance Stairs - Number of Steps: 1-2 Bathroom Shower/Tub: Tub/Shower unit, Shower chair with back Bathroom Toilet: Standard Bathroom Equipment: Shower chair Home Equipment: (FWW) Receives Help From: Family ADL Assistance: Needs assistance Homemaking Assistance: Needs assistance Ambulation Assistance: Independent Transfer Assistance: Independent Active Service Architect: No Occupation: Retired Additional Comments: Assist with ADL's. Assist with cooking, cleaning, & laundry. Family assists with transportation needs. Transfers with indep. Amb with FWW. Objective Orientation Overall Orientation Status: (Ox2 (person & place) Confused to Time (Month & Year): Dorally I like blackberry dorallvidhya best. ) Balance Sitting Balance: Stand by assistance (good - Static sitting balance at EOB with SBA.) Standing Balance: (poor Mod assist x 2) Standing Balance Comment: Static standing balance with mod assist x 2 with bilateral UE support of FWW. Pt with significant retrograde balance requiring mod assist x 2 along with left lateral lean. ADL Feeding: (Breakfast arrived and pt required assist to open containers and packages. Otherwise, pt able to grasp plastic silverware and feed self and drink juice with supervision after set-up.) LE Dressing: (Max assist to don right sock.) Tone RUE RUE Tone: Normotonic Tone LUE LUE Tone: Normotonic Bed mobility Supine to Sit: Moderate assistance;2 Person assistance Sit to Supine: Moderate assistance;2 Person assistance Scooting: Moderate assistance;2 Person assistance Comment: With use of draw sheet. Verbal cues given for hand placement, sequencing, and safety awareness. Transfers Sit to stand: Moderate assistance;2 Person assistance Stand to sit: Moderate assistance;2 Person assistance Transfer Comments: Pt performed sit to stand twice from EOB, both with mod assist x 2 with left LE NWB....pt not completely compliant with WB'ing status and displayed a left lateral lean as well. Vision - Basic Assessment Prior Vision: (Pt wears glasses.) Cognition Overall Cognitive Status: Exceptions (Confusion noted with conversation. Decreased memory. Likes to refer to her as an old goat . Pt calling out for Jessica, Yamel, and Cherelle at the beginning of the session.) Arousal/Alertness: Delayed responses to stimuli Following Commands: Follows one step commands with repetition;Follows one step commands with increased time Attention Span: Difficulty attending to directions Memory: Decreased recall of biographical Information;Decreased recall of precautions;Decreased recall of recent events Safety Judgement: Decreased awareness of need for assistance;Decreased awareness of need for safety Insights: Not aware of deficits Initiation: Requires cues for all Sequencing: Requires cues for all Sensation Overall Sensation Status: WFL (Pt denies any numbness & tingling in bilateral UE's. Intact to light touch.) LUE AROM (degrees) LUE AROM : WFL RUE AROM (degrees) RUE AROM : WFL LUE Strength Gross LUE Strength: (Approx 4/5 --Difficulty getting pt to follow commands.) RUE Strength Gross RUE Strength: (Approximately 4/5 --Difficulty getting pt to follow directions.) Plan Plan Times per week: 3-5x/wk Plan weeks: 4 weeks Current Treatment Recommendations: Strengthening, Patient/Caregiver Education & Training, Home Management Training, Balance Training, Functional Mobility Training, Endurance Training, Cognitive Reorientation, Safety Education & Training, Self-Care / ADL, Cognitive/Perceptual Training OutComes Score [facility] Daily Activity Inpatient How much help for putting on and taking off regular lower body clothing?: Total How much help for Bathing?: A Lot How much help for Toileting?: Total How much help for putting on and taking off regular upper body clothing?: A Lot How much help for taking care of personal grooming?: A Little How much help for eating meals?: A Little [facility] Inpatient Daily Activity Raw Score: 12 [facility] Inpatient ADL T-Scale Score : 30.6 ADL Inpatient CMS 0-100% Score: 66.57 ADL Inpatient CMS G-Code Modifier : CL AM-PAC Score [facility] Inpatient Daily Activity Raw Score: 12 (04/08/21939) [facility] Inpatient ADL T-Scale Score : 30.6 (04/08/21939) ADL Inpatient CMS 0-100% Score: 66.57 (04/08/21939) ADL Inpatient CMS G-Code Modifier : CL (04/08/21939) Goals Short term goals Time Frame for Short term goals: 4 weeks Short term goal 1: LE dressing with use of AE prn with mod assist. Short term goal 2: BSC transfer with min assist. Short term goal 3: Static standing balance during unilateral UE task x 2-3 mins with supervision. Short term goal 4: Ox3, 100% of treatment time...may use visual aides. Patient Goals Patient goals : None stated. Therapy Time Individual Concurrent Group Co-treatment Time In 0850 Time Out 0915 Minutes 25 Timed Code Treatment Minutes: 15 Minutes (funct act -1) Goals and/or treatment plan was established in collaboration with patient/family/other representatives. Patient's Occupational Therapy Plan [facility] This provider wore a KN95, face shield, and gloves for the duration of the session with this pt. Gloria Barrera MS, OTR/L Images from the original note were not included. [facility] Progress Note Maryellen Eisenberg : 1940(80 y.o.) Date: 04/08/2021 8:40 AM Subjective: The patient complains of L ankle pain, ambulatory dysfunction Pt is a 80 yo female with PMHx of HTN, HLD, AIDAN s/p CEA, CVA (w/ residual L sided deficits), T2DM, OAB, and GERD presenting after 4 falls at home in the past two days. Found to have multiple comminuted ankle fx's for which she underwent L tibial intramedullary nail yesterday. Okay for diet and DVT prophylaxis per ortho. Feeling well, states pain is well-controlled. Only A&Ox 2 this morning, cannot remember the year. PO intake has been adequate. Per DIL, family and pt selected 2 SNF's from list. Discussed discontinuation of plavix with DIL at bedside and she was agreeable. She states neurology informed her plavix would be discontinued after 1 month, and upon chart review, neurology follow up note stated as such. Plan to continue ASA indefinitely. Additionally discussed chronic nitrofurantoin per PCP for recurrent UTI (has had 3 in past year). DIL states that pt's presenting symptom historically has been confusion that leads to hospital admission and occasionally stroke w/u. Per ID remedios, recommended discontinuation of chronic therapy. Daughter was agreeable to trial off abx this admission and likely follow up with urology. Scheduled Meds: insulin 70-30 20 Units SubCUTAneous BID sodium chloride flush 5-40 mL IntraVENous 2 times per day atorvastatin 80 mg Oral Nightly dilTIAZem 240 mg Oral BID lisinopril 20 mg Oral Daily sodium chloride flush 10 mL IntraVENous 2 times per day enoxaparin 40 mg SubCUTAneous Daily acetaminophen 1,000 mg Oral 3 times per day Continuous Infusions: sodium chloride 50 mL/hr at 04/07/21 2342 sodium chloride sodium chloride dextrose PRN Meds:oxyCODONE OR oxyCODONE, sodium chloride flush, sodium chloride, sodium chloride flush, sodium chloride, promethazine OR ondansetron, polyethylene glycol, sennosides-docusate sodium, glucose, dextrose, glucagon (rDNA), dextrose Review of Systems Constitutional: Negative for chills and fever. Respiratory: Negative for cough and shortness of breath. Cardiovascular: Negative for chest pain. Gastrointestinal: Negative for abdominal pain, constipation and diarrhea. Musculoskeletal: Positive for arthralgias and gait problem. Neurological: Negative for dizziness, weakness, light-headedness and numbness. Interval Pertinent History: Social History Tobacco Use Smoking status: Never Smoker Smokeless tobacco: Never Used Substance Use Topics Alcohol use: No Alcohol/week: 0.0 standard drinks Objective: Patient Vitals for the past 24 hrs: BP Temp Temp src Pulse Resp SpO2 Weight 04/08/21 0606 (!) 157/72 98.3 F (36.8 C) Temporal 104 16 96 % 205 lb 11.2 oz (93.3 kg) 04/07/217 113/88 97.5 F (36.4 C) Temporal 86 19 97 % 04/07/21 2230 (!) 164/73 80 15 97 % 04/07/219 (!) 140/43 77 17 100 % 04/07/210 (!) 153/40 97 F (36.1 C) Temporal 74 16 100 % 04/07/212144 (!) 158/53 75 15 100 % 04/07/210 (!) 126/114 78 16 100 % 04/07/212114 (!) 135/49 77 15 100 % 04/07/212099 (!) 141/79 75 16 100 % 04/07/212056 (!) 135/52 97 F (36.1 C) Temporal 80 15 100 % 04/07/21 1725 (!) 146/61 98.4 F (36.9 C) Temporal 77 16 98 % Average, Min, and Max for last 24 hours Vitals: TEMPERATURE: Temp Av.6 F (36.4 C) Min: 97 F (36.1 C) Max: 98.4 F (36.9 C) RESPIRATIONS RANGE: Resp Av Min: 15 Max: 19 PULSE RANGE: Pulse Av.3 Min: 74 Max: 104 BLOOD PRESSURE RANGE: Systolic (24hrs), Av , Min:113 , Max:164 ; Diastolic (24hrs), Av, Min:40, Max:114 PULSE OXIMETRY RANGE: SpO2 Av.9 % Min: 96 % Max: 100 % I/O last 3 completed shifts: In: 700 [I.V.:700] Out: 50 [Blood:50] Physical Exam Constitutional: General: She is not in acute distress. Appearance: She is obese. She is not ill-appearing. Comments: Fatigued-appearing elderly female resting comfortably in bed. Awakens easily to verbal cues. Eyes: Conjunctiva/sclera: Conjunctivae normal. Cardiovascular: Rate and Rhythm: Normal rate and regular rhythm. Pulses: Normal pulses. Heart sounds: Normal heart sounds. Pulmonary: Effort: Pulmonary effort is normal. Breath sounds: Normal breath sounds. Abdominal: General: Bowel sounds are normal. There is no distension. Palpations: Abdomen is soft. Tenderness: There is no abdominal tenderness. Musculoskeletal: General: Signs of injury present. Comments: LLE wrapped. Motor and sensory function intact to LLE. Skin: General: Skin is warm and dry. Neurological: Mental Status: She is alert. Motor: No weakness. Comments: A&O x 2- cannot state the year Psychiatric: Mood and Affect: Mood normal. Behavior: Behavior normal. Lab Results Component Value Date WBC 6.0 04/08/2021 HGB 10.7 (L) 04/08/2021 HCT 31.5 (L) 04/08/2021 MCV 85.0 04/08/2021 PLT 125 (L) 04/08/2021 Lab Results Component Value Date NA 134 04/08/2021 K 4.4 04/08/2021 CL 105 04/08/2021 CO2 21 04/08/2021 BUN 25 04/08/2021 CREATININE 0.83 04/08/2021 GLUCOSE 272 04/08/2021 CALCIUM 8.7 04/08/2021 Lab Results Component Value Date LABA1C 10.7 (A) 04/08/2021 Additional results of the last 24 hours have been reviewed. Assessment and Plan: Active Problems: Type 2 diabetes mellitus without complication, with long-term current use of insulin ([facility]) Essential hypertension Mixed hyperlipidemia History of TIA (transient ischemic attack) Hyperglycemia Hyponatremia Declining functional status Fall Closed left ankle fracture, initial encounter Closed displaced pilon fracture of left tibia with malunion Closed fracture of shaft of left fibula with malunion Frequent falls Resolved Problems: * No resolved hospital problems. * #Comminuted oblique fracture of the distal L tibial diaphysis #Comminuted fracture of the distal third L fibular shaft #? L lateral malleolus fracture #OA #Functional Decline and frequent falls - XR L ankle with comminuted oblique Fx of the distal L tibial diaphysis with lateral displacement of the distal fracture fragment and slight overriding of the fracture fragments. - Comminuted fracture of the distal third fibular shaft with slight lateral angulation of the distal fracture fragment. - ? Area of subtle horizontal curvilinear lucency involving the lateral malleolus which may reflect a nondisplaced fracture - S/p day #1 intramedullary nail. Okay for DVT prophylaxis per ortho - PT/OT evals, will require placement - Pain control w/ scheduled tylenol and prn oxycodone. - Check orthostats #Uncontrolled IDDMII w/ polyneuropathy & hyperglycemia - Hyperglycemic this AM, NPH increased to 20U BID and likely will change to 24U BID. At home takes 28U nightly and 24U qam. Med dose ssi Hypoglycemia treatment per protocol - A1c 10.7 #Hyponatremia - Na 134, improving #HTN #HLD - Hold lisinopril 20mg qd, continue diltiazem 240mg BID - Continue atorvastatin 80mg qd #Hx CVA w/ reported chronic L-sided deficits #AIDAN s/p CEA - Continue ASA. Stop plavix per discussion with family above #GERD #Obesity Code Status: Full code DVTProphylaxis: SCDs Disposition:await showroom consultant recommendations and await placement Awaiting placement I spent over 51% of total time providing counseling or incoordination of care: > 35 minutes discussed with nurse, patient and family updated, I personally examined the patient and I personally reviewed chart, data, labs radiology reports Discussed with Dr. Varela, discussed with ID, discussed with pharmacy, discussed with family extensively at bedside and via phone Family Communication Number Called: [phone] Relationship to Patient: Daughter in law, Jessica Phone Call Outcome: I spoke with the individual listed above. Family Quality Coordinator Updated on the Following: A&P 7AM-4PM Please Perfect serve Jodie Minor PA-C 6PM-6AM please page: [facility] Internal Medicine Associated attestation - Yaneth Varela MD - 04/08/2021 4:07 PM EDT Attending Supervising Physician's Attestation Statement The patient is a 80 y.o. female. I have performed a history and physical examination of the patient. I discussed the case with the physician acquisitions assistant. Patient states that she is upset this morning. Wants to know why I am asking her so many questions. Says that she feels that I am up to no good and that I am scheming something . Denies pain in her foot. Tells me, unprompted, that she misses Jessica (DIL), before then mouthing 'NOT' at me (it was only us in the room). I reviewed the patient's Past Medical History, Past Surgical History, Medications, and Allergies. Physical Exam: Vitals: 04/07/21 2219 04/07/21 2230 04/07/21 2257 04/08/21 0606 BP: (!) 140/43 (!) 164/73 113/88 (!) 157/72 Pulse: 77 80 86 104 Resp: 17 15 19 16 Temp: 97.5 F (36.4 C) 98.3 F (36.8 C) TempSrc: Temporal Temporal SpO2: 100% 97% 97% 96% Weight: 205 lb 11.2 oz (93.3 kg) Height: General: NAD, obese, mildly confused HEENT: NC, AT Cardio: RRR, normal S1/S2. No MRG Pulm: CTAB. No wheezes or crackles Abd: Soft, NTTP, ND Ext: LLE wrapped. Impression/Plan I reviewed and agree with the findings and plan documented in her note . Acute L comminuted fx of distal tibia and distal fibula -Pt presented after fall and found to have fx. -Ortho consulted; reduction and fixation done 04/07. -PRN oxycodone. Appreciate APS recs. -PT/OT DM2 -Takes 70-30 at home and does 22u AM and 28u PM. -BS in 300s today after only getting short acting insulin yday. SSI added and dose adjusted. Hx CVA -On ASA/plavix, however on chart review appears plavix should have been stopped 3 weeks after CVA per neuro notes (~ 04/2020). Discussion had w/ family and plavix stopped. HTN -Continue cardizem. Lisinopril resumed today. Rest of plan per PA note. I spent over 51% of total time providing counseling or in cooridnation of care: >35 minutes. I reviewed the chart, data, labwork, and images. Plan discussed w/ pt and PA. Images from the original note were not included. [facility] [address] [place] [address] Dept: [phone] Loc: [phone] Orthopedic Progress Note Name: Maryellen Eisenberg Date:04/08/2021 Attending:Yaneth Varela MD Subjective No events o/n. Patient confused AOx1 Objective Vitals: Vitals: 04/07/21 2219 04/07/21 2230 04/07/21 2257 04/08/21 0606 BP: (!) 140/43 (!) 164/73 113/88 (!) 157/72 Pulse: 77 80 86 104 Resp: 17 15 19 16 Temp: 97.5 F (36.4 C) 98.3 F (36.8 C) TempSrc: Temporal Temporal SpO2: 100% 97% 97% 96% Weight: 205 lb 11.2 oz (93.3 kg) Height: Physical Exam: General: NAD, AOx1 LLE Dressing: Dressing Clean/Dry/Intact SILT: Sensation intact but diminished sensation at baseline Motor: +toe wiggle Pulses: BCR to digits LABS: Recent Labs 04/06/21 0457 04/07/21 0109 04/08/21 0034 WBC 6.4 3.7 6.0 HGB 12.6 10.5* 10.7* HCT 36.9 31.0* 31.5* PLT 134* 118* 125* Recent Labs 04/06/21 0457 04/07/21 0109 04/08/21 0034 NA 132* 132* 134* K 4.1 4.2 4.4 CL 99 103 105 CO2 26 26 21* BUN 28* 30* 25* CREATININE 0.90 0.97 0.83 CALCIUM 9.6 8.6 8.7 Recent Labs 04/06/21 1121 INR 1.0 No results for input(s): SEDRATE, CRP in the last 72 hours. No results for input(s): HCG in the last 72 hours. Assessment Maryellen is a 80 y.o.female S/p L tibia IMN Plan -No plans for RTOR -NWB LLE -Ok for diet from ortho perspective -Ok for DVT ppx from ortho perspective -PT/OT -Ice & elevate -Keep dressing c/d/i, ok to replace as necessary -Neurovascular/skin checks -f/u OP with Dr. Hagen in 2 weeks Paul Vale MD Orthopaedic Surgery PGY-2 *[id number] Called daughter in law Jessica and updated her on patient recovery. [facility] MEDICATION RECONCILIATION Date: 04/07/21 Room:[address] [place] [address] Patient Name: Maryellen Eisenberg Allergies: Patient has no known allergies. Age: 80 y.o. Sex: female Note: New information has been obtained regarding the patient s medications. The medication reconciliation has been updated to reflect this. Please consider making these changes/additions if appropriate: Recommendations: 1. Home medications to restart if there is not a current contraindication: a. *FYI* - patient takes Nitrofurantoin 50mg qday prior to admission Please page/call with questions. Date: 04/07/21 Time: 4:16 PM Name: Susan Rodríguez RPH, PharmD Pager: [phone] Occupational Therapy OT held secondary to chart indicates plans for ortho surgery today. Will continue to follow. Yakelin Velasquez OTR/L Images from the original note were not included. [facility] Progress Note Maryellen Eisenberg : 1940(80 y.o.) Date: 04/07/2021 10:10 AM Subjective: HPI The patient complains of L ankle pain, ambulatory dysfunction Pt is a 80 yo female with PMHx of HTN, HLD, ADIAN s/p CEA, CVA (w/ residual L sided deficits), T2DM, OAB, and GERD presenting after 4 falls at home in the past two days. Found to have multiple comminuted ankle fx's for which orthopedic surgery scheduled L tibial intramedullary nail this afternoon. DVT prophylaxis, ASA, and plavix on hold for procedure. Reports pain is well-controlled today. Able to wiggle toes and sensory function to entire LLE is intact. Agreeable to plan for OR today. Denies fever, chest pain, SOB, abd pain, change in bowel or bladder habits. Scheduled Meds: atorvastatin 80 mg Oral Nightly dilTIAZem 240 mg Oral BID insulin 70-30 12 Units SubCUTAneous BID [Held by provider] lisinopril 20 mg Oral Daily sodium chloride flush 10 mL IntraVENous 2 times per day [Held by provider] enoxaparin 40 mg SubCUTAneous Daily acetaminophen 1,000 mg Oral 3 times per day Continuous Infusions: sodium chloride dextrose PRN Meds:sodium chloride flush, sodium chloride, promethazine OR ondansetron, polyethylene glycol, oxyCODONE, sennosides-docusate sodium, glucose, dextrose, glucagon (rDNA), dextrose Review of Systems Constitutional: Negative for chills and fever. Respiratory: Negative for cough and shortness of breath. Cardiovascular: Negative for chest pain. Gastrointestinal: Negative for abdominal pain, constipation and diarrhea. Musculoskeletal: Positive for arthralgias and gait problem. Neurological: Negative for dizziness, weakness, light-headedness and numbness. Interval Pertinent History: Social History Tobacco Use Smoking status: Never Smoker Smokeless tobacco: Never Used Substance Use Topics Alcohol use: No Alcohol/week: 0.0 standard drinks Objective: Patient Vitals for the past 24 hrs: BP Temp Temp src Pulse Resp SpO2 04/07/21 0747 (!) 151/93 98.3 F (36.8 C) Temporal 81 97 % 04/06/21 2330 138/61 98.1 F (36.7 C) Temporal 94 18 96 % 04/06/21 2200 (!) 114/90 91 16 97 % 04/06/21 2043 78 04/06/21 2036 (!) 136/53 78 18 99 % 04/06/212028 (!) 136/53 04/06/21 1716 (!) 121/48 79 20 98 % 04/06/21 1559 (!) 132/45 80 20 98 % 04/06/21 1359 (!) 134/49 81 99 % 04/06/21 1128 (!) 143/60 83 20 97 % Average, Min, and Max for last 24 hours Vitals: TEMPERATURE: Temp Av.2 F (36.8 C) Min: 98.1 F (36.7 C) Max: 98.3 F (36.8 C) RESPIRATIONS RANGE: Resp Av.7 Min: 16 Max: 20 PULSE RANGE: Pulse Av.8 Min: 78 Max: 94 BLOOD PRESSURE RANGE: Systolic (24hrs), Av , Min:114 , Max:151 ; Diastolic (24hrs), Av, Min:45, Max:93 PULSE OXIMETRY RANGE: SpO2 Av.6 % Min: 96 % Max: 99 % No intake/output data recorded. Physical Exam Constitutional: General: She is not in acute distress. Appearance: She is obese. She is not ill-appearing. Comments: Pleasant and cooperative elderly female resting in bed, appears comfortable. Eyes: Conjunctiva/sclera: Conjunctivae normal. Cardiovascular: Rate and Rhythm: Normal rate and regular rhythm. Pulses: Normal pulses. Heart sounds: Normal heart sounds. Pulmonary: Effort: Pulmonary effort is normal. Breath sounds: Normal breath sounds. Abdominal: General: Bowel sounds are normal. There is no distension. Palpations: Abdomen is soft. Tenderness: There is no abdominal tenderness. Musculoskeletal: General: Signs of injury present. Comments: LLE in bandages. Motor and sensory function intact. Skin: General: Skin is warm and dry. Neurological: Mental Status: She is alert. Motor: No weakness. Comments: A&O x 2- states she's walking down the street Psychiatric: Mood and Affect: Mood normal. Behavior: Behavior normal. Lab Results Component Value Date WBC 3.7 04/07/2021 HGB 10.5 (L) 04/07/2021 HCT 31.0 (L) 04/07/2021 MCV 84.9 04/07/2021 PLT 118 (L) 04/07/2021 Lab Results Component Value Date NA 132 04/07/2021 K 4.2 04/07/2021 CL 103 04/07/2021 CO2 26 04/07/2021 BUN 30 04/07/2021 CREATININE 0.97 04/07/2021 GLUCOSE 297 04/07/2021 CALCIUM 8.6 04/07/2021 Lab Results Component Value Date LABA1C 8.7 (A) 11/05/2020 Additional results of the last 24 hours have been reviewed. Assessment and Plan: Active Problems: Type 2 diabetes mellitus without complication, with long-term current use of insulin (HCC) Essential hypertension Mixed hyperlipidemia History of TIA (transient ischemic attack) Hyperglycemia Hyponatremia Declining functional status Fall Closed left ankle fracture, initial encounter Closed displaced pilon fracture of left tibia with malunion Closed fracture of shaft of left fibula with malunion Frequent falls Resolved Problems: * No resolved hospital problems. * #Comminuted oblique fracture of the distal L tibial diaphysis #Comminuted fracture of the distal third L fibular shaft #? L lateral malleolus fracture #OA #Functional Decline and frequent falls - XR L ankle with comminuted oblique Fx of the distal L tibial diaphysis with lateral displacement of the distal fracture fragment and slight overriding of the fracture fragments. - Comminuted fracture of the distal third fibular shaft with slight lateral angulation of the distal fracture fragment. - ? Area of subtle horizontal curvilinear lucency involving the lateral malleolus which may reflect a nondisplaced fracture - Plan for L intramedullary nail today. DVT prophylaxis, ASA, and plavix on hold. Will consult PT/OT following interventions, will need placement. Patient and family agreeable - Pain control w/ scheduled tylenol and prn oxycodone. - Check orthostats #Uncontrolled IDDMII w/ polyneuropathy & hyperglycemia - Home insulin resumed at 1/2 dose, will adjust when PO. Hypoglycemia treatment per protocol - Has been hyperglycemic in the 280-290's. Added 8U humalog this afternoon - Add on A1c tomorrow #Hyponatremia - Na 132, sodium intermittently falls to 130 per chart review. Will check urine studies if worsening tomorrow #HTN #HLD - Hold lisinopril 20mg qd, continue diltiazem 240mg BID - Continue atorvastatin 80mg qd #Hx CVA w/ reported chronic L-sided deficits #AIDAN s/p CEA - Hold ASA and plavix for ortho intervention #GERD #Obesity Code Status: Full code DVTProphylaxis: SCDs Disposition:await test results, await showroom consultant recommendations, await clinical improvement and await placement OR today for L ankle fracture, will require placement following intervention. I spent over 51% of total time providing counseling or incoordination of care: > 35 minutes discussed with nurse, patient and family updated, I personally examined the patient and I personally reviewed chart, data, labs radiology reports Discussed with Dr. Varela, discussed with RN, will attempt to update family again later. 7AM-4PM Please Perfect serve Jodie Minor PA-C 6PM-6AM please page: [facility] Internal Medicine Associated attestation - Yaneth Varela MD - 04/07/2021 3:31 PM EDT Attending Supervising Physician's Attestation Statement The patient is a 80 y.o. female. I have performed a history and physical examination of the patient. I discussed the case with the physician acquisitions assistant. Pt frustrated about being in pain and not being able to eat. Wondering when her surgery is. I reviewed the patient's Past Medical History, Past Surgical History, Medications, and Allergies. Physical Exam: Vitals: 04/06/21 2043 04/06/21 2200 04/06/21 2330 04/07/21 0747 BP: (!) 114/90 138/61 (!) 151/93 Pulse: 78 91 94 81 Resp: 16 18 Temp: 98.1 F (36.7 C) 98.3 F (36.8 C) TempSrc: Temporal Temporal SpO2: 97% 96% 97% Weight: Height: General: Alert, NAD, obese HEENT: NC, AT Cardio: RRR, normal S1/S2. No MRG Pulm: CTAB. No wheezes or crackles Abd: Soft, NTTP, ND Ext: LLE in cast Impression/Plan I reviewed and agree with the findings and plan documented in her note . Acute L comminuted fx of distal tibia and distal fibula -Pt presented after fall and found to have fx. -Touched base w/ ortho; plan on surgery today. Pt NPO after midnight. -PRN oxycodone. -PT/OT -Orthostats DM2 -Takes 70-30 at home and does 22u AM and 28u PM. Given 12u last night. BS stable this afternoon; will give another short acting dose. -Will trend and adjust. Hx CVA -On ASA/plavix, however on chart review appears plavix should have been stopped 3 weeks after CVA per neuro notes (~ 04/2020). Will discuss further w/ family. Holding ASA/plavix for now regardless. HTN -Continue cardizem. Hold lisinopril until after OR. Rest of plan per PA note. I spent over 51% of total time providing counseling or in cooridnation of care: >35 minutes. I reviewed the chart, data, labwork, and images. Plan discussed w/ pt and PA. Physical Therapy Pt scheduled for OR today, hold PT. Rowan Tavarez PT Images from the original note were not included. [facility] [address] [place] [address] Dept: [phone] Loc: [phone] Orthopedic Progress Note Name: Maryellen Eisenberg Date:04/07/2021 Attending:Petra Crawford DO Subjective No events o/n. Patient confused AAOx1 Objective Vitals: Vitals: 04/06/21 2036 04/06/21 2043 04/06/21 2200 04/06/21 2330 BP: (!) 136/53 (!) 114/90 138/61 Pulse: 78 78 91 94 Resp: 18 16 18 Temp: 98.1 F (36.7 C) TempSrc: Temporal SpO2: 99% 97% 96% Weight: Height: Physical Exam: General: NAD, AAOx1 LLE Dressing: Splint Clean/Dry/Intact SILT: Diminished sensation at baseline Motor: +toe wiggle Pulses: BCR to digits LABS: Recent Labs 04/06/21 0457 04/07/21 0109 WBC 6.4 3.7 HGB 12.6 10.5* HCT 36.9 31.0* PLT 134* 118* Recent Labs 04/06/21 0457 04/07/21 0109 NA 132* 132* K 4.1 4.2 CL 99 103 CO2 26 26 BUN 28* 30* CREATININE 0.90 0.97 CALCIUM 9.6 8.6 Recent Labs 04/06/21 1121 INR 1.0 No results for input(s): SEDRATE, CRP in the last 72 hours. No results for input(s): HCG in the last 72 hours. Assessment Maryellen is a 80 y.o.female With left distal tibia and fibula fractures Plan -D/w Dr. Hagen -Plan for OR today 04/07 for left tibial intramedullary nail -NPO -Medical clearance pending -Family consented for above procedure -Added to OR schedule -Labs obtained -Ice & elevate -Keep splint c/d/I, skin checks around splint -Neurovascular checks -NWB LLE -Admit to Medicine -Please hold DVT prophylaxis in anticipation of OR documented in this [facility]: Hospital course Narrative 04-10-2021 Jodie Minor PA - 04/10/2021 8:19 AM EDT Note Date & Type Note Facility 04-10-2021 Hospital course Narrative Images from the original note were not included. [facility] Discharge Summary with Discharge DayProgress Note Maryellen Eisenberg : 1940 ADMIT DATE: 04/06/2021 DISCHARGE DATE: 04/10/2021 PRIMARY CARE PHYSICIAN: Phillip Carlisle DO VISIT STATUS: Admission CODE STATUS: Full Code DISCHARGE DIAGNOSES: Active Problems: Type 2 diabetes mellitus without complication, with long-term current use of insulin (HCC) Essential hypertension Mixed hyperlipidemia History of TIA (transient ischemic attack) Hyperglycemia Hyponatremia Declining functional status Frequent falls Uncontrolled insulin-treated type 2 diabetes mellitus (HCC) Dementia without behavioral disturbance (HCC) Recurrent UTI Resolved Problems: Fall Closed left ankle fracture, initial encounter Closed displaced pilon fracture of left tibia with malunion Closed fracture of shaft of left fibula with malunion HOSPITAL COURSE: Pt is a 80 yo female with PMHx of HTN, HLD, AIDAN s/p CEA, CVA (w/ residual L sided deficits), T2DM, OAB, and GERD presenting after multiple falls at home. Found to have comminuted ankle Fx of the distal tibia and fibula for which she underwent reduction and fixation with intramedullary nail. She is to remain NWB on the LLE and follow up with Dr. Hagen in 2 weeks. Patient is being discharged in stable condition to SNF and agrees with plan. Understands importance of close follow up with orthopedics. The problems as detailed below were addressed on admission. Pain control with leona tylenol and prn oxycodone x 3 days, OARRS reviewed. #Comminuted Fx distal L tibial diaphysis, Comminuted Fx distal third L fibular shaft s/p day 3 reduction and fixation #OA #Functional Decline and frequent falls - Follow up with Dr. Hagen in 2 weeks. Pt is to remain NWB in the LLE in the interim. Pain control w/ scheduled tylenol and prn oxycodone with scheduled bowel regimen if using opiates. #Uncontrolled IDDMII w/ polyneuropathy & hyperglycemia - Endo consulted d/t hyperglycemia, and insulin changed to lantus 50U nightly with humalog 15U TID WC #Hyponatremia - Improving, repeat BMP in ~ 1 week. Suspect related to Poor PO intake #HTN #HLD - lisinopril 20mg qd, continue diltiazem 240mg BID - Continue atorvastatin 80mg qd #Hx CVA w/ reported chronic LLE weakness #AIDAN s/p CEA - Continue ASA. Stop plavix per discussion with family #Hx Recurrent UTI per family - on chronic nitrofurantoin per PCP for 3 UTI's in the past year. Curbsided with ID and urology who recommended discontinuing. Family agreeable, follow up w/ urology for further discussion #Vitamin D deficiency - < 13, start weekly supplement x 6 and repeat level in ~ 2 mos #Obesity DAY OF DISCHARGE: Review of Systems Constitutional: Negative for appetite change and fever. Respiratory: Negative for cough and shortness of breath. Cardiovascular: Negative for chest pain. Gastrointestinal: Negative for abdominal pain. Musculoskeletal: Positive for arthralgias. Neurological: Negative for dizziness and light-headedness. Subjective: reports mild pain in the LLE. Able to move toes and sense touch. States she wants to see her at SNF. Patient Vitals for the past 24 hrs: BP Temp Temp src Pulse Resp SpO2 04/10/21 0644 (!) 141/85 98.4 F (36.9 C) Temporal 84 18 97 % 04/09/21 1823 (!) 144/86 97.2 F (36.2 C) Temporal 78 20 98 % Average, Min, and Max for last 24 hours Vitals: TEMPERATURE: Temp Av.8 F (36.6 C) Min: 97.2 F (36.2 C) Max: 98.4 F (36.9 C) RESPIRATIONS RANGE: Resp Av Min: 18 Max: 20 PULSE RANGE: Pulse Av Min: 78 Max: 84 BLOOD PRESSURE RANGE: Systolic (24hrs), Av , Min:141 , Max:144 ; Diastolic (24hrs), Av, Min:85, Max:86 PULSE OXIMETRY RANGE: SpO2 Av.5 % Min: 97 % Max: 98 % No intake/output data recorded. Physical Exam Constitutional: General: She is not in acute distress. Appearance: She is obese. She is not ill-appearing. Comments: Cooperative elderly female resting in bed, NAD. HENT: Head: Normocephalic. Eyes: Conjunctiva/sclera: Conjunctivae normal. Cardiovascular: Rate and Rhythm: Normal rate and regular rhythm. Pulses: Normal pulses. Heart sounds: Normal heart sounds. Pulmonary: Effort: Pulmonary effort is normal. Breath sounds: Normal breath sounds. Abdominal: General: Bowel sounds are normal. There is no distension. Palpations: Abdomen is soft. There is no mass. Tenderness: There is no abdominal tenderness. Musculoskeletal: General: No tenderness. Right lower leg: No edema. Comments: L ankle wrapped. Motor and sensory function intact to distal LLE. Skin: General: Skin is warm and dry. Neurological: Mental Status: She is alert and oriented to person, place, and time. Mental status is at baseline. Comments: A&O x 2 to self and year, states we are in [place] Psychiatric: Mood and Affect: Mood normal. Behavior: Behavior normal. PROCEDURES: L tibia reduction and fixation with placement of intramedullary nail CONSULTANTS: Orthopedic Surgery Endocrinology DISCHARGE MEDICATIONS: Significant Medication Changes: Insulin adjustments as noted below Scheduled tylenol and prn oxycodone for pain followed by prn tylenol Scheduled bowel regimen if using opiates Stop taking plavix Stop taking nitrofurantoin Vitamin D weekly x 5 additional doses Maryellen Eisenberg Home Medication Instructions GOLDEN:[id number] Printed on:04/10/21 0720 Medication Information acetaminophen (TYLENOL) 500 MG tablet Take 2 tablets by mouth every 8 hours Alcohol Swabs (ALCOHOL PADS) 70 % PADS Test twice a day aspirin 81 MG EC tablet Take 1 tablet by mouth daily atorvastatin (LIPITOR) 80 MG tablet Take 1 tablet by mouth daily Continuous Blood Gluc Sensor (FREESTYLE SALLIE 14 DAY SENSOR) MISC Apply sensor every 14 days for continuous glucose monitoring. Patient injecting insulin 2 times a day. Dx:E11.42, Z79.4 dilTIAZem (CARDIZEM CD) 240 MG extended release capsule Take 1 capsule by mouth 2 times daily glucose (GLUTOSE) 40 % GEL Take 37.5 mLs by mouth as needed (Hypoglycemia) Handicap Placard MISC by Does not apply route DX: Duration: 5 years insulin glargine (LANTUS) 100 UNIT/ML injection vial Inject 50 Units into the skin nightly insulin lispro (HUMALOG) 100 UNIT/ML injection vial Inject 15 Units into the skin 3 times daily (with meals) Lancets Misc. MISC Test bid Dx 250.00 Lift Chair MISC by Does not apply route lisinopril (PRINIVIL;ZESTRIL) 20 MG tablet Take 1 tablet by mouth daily oxyCODONE (ROXICODONE) 5 MG immediate release tablet Take 0.5 tablets by mouth every 4 hours as needed for Pain for up to 3 days. polyethylene glycol (GLYCOLAX) 17 g packet Take 17 g by mouth daily as needed for Constipation RELION INSULIN SYR 0.5CC/30G 30G X 5/16 0.5 ML MISC Inject 1 each into the skin 2 times daily for 5000 doses sennosides-docusate sodium (SENOKOT-S) 8.6-50 MG tablet Take 2 tablets by mouth daily as needed for Constipation vitamin D (ERGOCALCIFEROL) 1.25 MG (43935 UT) CAPS capsule Take 1 capsule by mouth once a week for 6 doses Dosed on Tuesday DIET:carb controlled ACTIVITY: NWB LLE until follow up with ortho in 2 weeks SIGNIFICANT DIAGNOSTIC STUDIES: XR L ankle- There appears to be an additional essentially nondisplaced fracture involving the fibular neck which is suboptimally evaluated due to positioning. Proximal and distal tibiofibular syndesmosis appear intact. Vascular calcifications are present. There are prominent varicosities medially. Left ankle: Comminuted oblique fracture involving the distal left tibial diaphysis with lateral displacement of the distal fracture fragment and slight overriding of the fracture fragments. There are several small fracture fragments dominant site. Comminuted fracture involving the distal third fibular shaft with slight lateral angulation of the distal fracture fragment. Only seen on the frontal radiograph there appears to be a subtle horizontal curvilinear lucency involving the lateral malleolus which may reflect a nondisplaced fracture. Ankle mortise and talar dome appear intact. Fixation screws in the distal left fibular shaft. There is mild osteoarthritis involving the tibiotalar joint and several of the mid foot articulations. Plantar and retrocalcaneal spurs are present. Vascular calcifications. Diffuse soft tissue swelling/edema CT LLE- Acute comminuted fractures of the distal tibia metadiaphysis and distal fibula diaphysis XR tib fib L- 1. Postsurgical change compatible with IM maria isabel fixation of left distal tibial fracture. 2. Fractures in left fibular neck and distal fibula. XR L hip XR b/l knee CXR COMPLEXITY OF FOLLOW UP: [] Moderate Complexity:follow up within 7-14 calendar days (34850) [] Severe Complexity: follow up within 7 calendar days (34773) FOLLOW UP TESTING, PENDING RESULTS OR REFERRALS AT TRANSITIONAL CARE VISIT: [x] Yes - Ensure follow up as needed with urology for further discussion of discontinuation of nitrofurantoin for recurrent UTI - Recheck vitamin D level in ~ 2 months. If remains low, suggest starting daily supplement - Continue to closely monitor blood sugars. Recommend referral to endocrinology if DM remains uncontrolled [] No DISPOSITION: SNF FACILITY/HOME CARE AGENCY NAME: [facility] Follow up with DO Dr. Xiao Hansen (orthopedics) x 2 weeks Notification (telephone encounter) to PCP initiated: [x] Yes [] No INSTRUCTIONS TO MA/SW: Please call patient on day after discharge (must document patient contacted within 2 business days of discharge). FOLLOW UP QUESTIONS FOR MA/SW: 1. Did you get medications filled and taking them as instructed fromdischarge? 2. Are you following your discharge instructions from your hospital stay? 3. Please confirm patient is scheduled for a follow up appointment within the above time frame. DISCHARGE TIME: > 30minutes Electronically signed by REYNOLD Ugarte on04/10/21 at 8:20 AM EDT Associated attestation - RubinJulian BasiaDO - 04/10/2021 12:54 PM EDT Attending Supervising Physician's Attestation Statement The patient is a 80 y.o. female. I have performed a history and physical examination of the patient. I discussed the case with the physician acquisitions assistant. I reviewed the patient's Past Medical History, Past Surgical History, Medications, and Allergies. Chart reviewed No new issues Mild left ankle discomfort Physical Exam: Vitals: 04/08/21 1754 04/09/21 0608 04/09/21 1823 04/10/21 0644 BP: (!) 147/61 (!) 150/58 (!) 144/86 (!) 141/85 Pulse: 79 76 78 84 Resp: Temp: 98.1 F (36.7 C) 97.1 F (36.2 C) 97.2 F (36.2 C) 98.4 F (36.9 C) TempSrc: Temporal Temporal Temporal Temporal SpO2: 97% 97% 98% 97% Weight: Height: General Appearance: [x]NAD [x]Obese []Cachectic []Thin []Frail []ill-appearance Skin: Temperature []Warm []Cool / []Dry []Moist Rash []Yes []No Tattoo(s) []Yes []No Heent: Pupils round and react []Yes []No Sclera []Icteric [x]Non-Icteric Conjunctiva []Injected [x]Non-Injected Dentitian [][place] Teeth []Dentures []Poor dentition Oral Mucosa [][place] []Moist []Dry PALA []Yes []No Neck: Thyromegaly []Yes []No Jvd []Present []Absent Lungs: [x]Clear []Crackles []Wheezes [][place] Respiratory effort []Labored [x]Non-Labored Accessory muscle use []Yes []No Heart: [x]RRR []Irregularly Irregular []murmur present []murmur absent Abdomen: [x]Soft Bowel Sounds []Present []Absent []Diminished []Hyperactive []Hypoactive []Tender []Non-Tender []Distended [x]Non-distended Hernia []Present []Absent Hepatomegaly []Absent []Present Splenomegaly []Absent []Present []Surgical Scar present Extremities: Cyanosis []Present []Absent Upper extremity Edema []Absent []Present Lower extremity Edema []Absent []Present Neurologic: Seizure activity []Present [x]Absent Tremor []Present [x]Absent Follows Commands []Yes []No []Unresponsive to verbal Psych: Alert [x]yes []no Oriented []x0 []x1 []x2 []x3 Affect [x]Normal []Flat []Aggitated []Calm Suicidal [] Yes [] No Impression/Plan I reviewed and agree with the findings and plan documented in her note . Discussed with TCC. Stable for DC to SNF today. Appreciate endo rec's. >30 minutes was spent in caring for this patient in combination with CLAIRE Minor documented in this encounter [facility] Work Phone: Hospital Discharge instructions 04-10-2021 Discharge Instr - DietDischarge Instr - COCAdditional Instructions Note Date & Type Note Facility 04-10-2021 Hospital Discharg e instructions Jodie Minor PA - 04/10/2021 8:05 AM EDT Good nutrition is important when healing from an illness, injury, or surgery. Follow any nutrition recommendations given to you during your hospital stay. If you were given an oral nutrition supplement while in the hospital, continue to take this supplement at home. You can take it with meals, in-between meals, and/or before bedtime. These supplements can be purchased at most local grocery stores, pharmacies, and chain super-stores. If you have any questions about your diet or nutrition, call the hospital and ask for the dietitian. Regine Tirado RN - 04/09/2021 8:47 AM EDT Continuity of Care Form Patient Name: Maryellen Eisenberg : 1940 Admit date: 04/06/2021 Discharge date: 04/10/21 Code Status Order: Full Code Advance Directives: Admitting Physician: Petra Crawford DO PCP: Phillip Carlisle DO Discharging Nurse: Regine VALENCIA Discharging Hospital Unit/Room#: 1556/649336 Discharging Unit Emergency Contact: Extended Emergency Contact Information Primary Emergency Contact: Hunter Eisenberg [facility] Relation: Child Secondary Emergency Contact: Hunter Eisenberg [facility] Relation: Child Past Surgical History: Past Surgical History: Procedure Laterality Date CAROTID ENDARTERECTOMY Right 2008 [facility] CATARACT REMOVAL Bilateral 2012 Chi CHOLECYSTECTOMY 1985 COLONOSCOPY 2007 HIP FRACTURE SURGERY Left 10/20/2015 hemiarthroplasty- Richard García MD HYSTERECTOMY, TOTAL ABDOMINAL N/A 1984 Immunization History: Immunization History Administered Date(s) Administered Influenza Virus Vaccine 05/31/2011, 05/12/2015 Influenza Whole 05/31/2011 Influenza, High Dose (Fluzone 65 yrs and older) 07/22/2016, 06/17/2017, 08/10/2018, 09/05/2019, 06/02/2020 Influenza, Quadv, IM, (6 mo and older Fluzone, Flulaval, Fluarix and 3 yrs and older Afluria) 06/01/2014, 07/22/2016, 06/17/2017 Influenza, Quadv, adjuvanted, 65 yrs +, IM, PF (Fluad) 06/02/2020 Pneumococcal Conjugate 13-valent ([id number]) 07/10/2015 Pneumococcal Conjugate Vaccine 05/31/2011 Pneumococcal Polysaccharide ([id number]) 05/01/2011 Tetanus 01/02/2013 Tetanus Toxoid, absorbed 01/02/2013 Active Problems: Patient Active Problem List Diagnosis Code Type 2 diabetes mellitus without complication, with long-term current use of insulin (HCC) E11.9, Z79.4 Essential hypertension I10 Mixed hyperlipidemia E78.2 Occipital cerebral infarction (HCC) I63.9 History of fracture of left hip Z87.81 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) E11.40 Carotid artery occlusion with infarction (HCC) I63.239 History of TIA (transient ischemic attack) Z86.73 OAB (overactive bladder) N32.81 Left homonymous hemianopsia H53.462 CVA, old, homonymous hemianopsia I69.398, H53.469 Lumbar disc disease with radiculopathy M51.16 GERD with stricture K21.9, K22.2 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 Asymptomatic stenosis of left carotid artery I65.22 Morbidly obese ([facility]) E66.01 Stroke-like symptoms R29.90 Acute encephalopathy G93.40 Hyperglycemia R73.9 Noncompliance Z91.[address] (acute kidney injury) ([facility]) N17.9 CVA (cerebral vascular accident) ([facility]) I63.9 Declining functional status R53.81 Left foot pain M79.672 Accidental fall from bed W06.XXXA Fall W19.XXXA Cerebrovascular insufficiency I67.81 Closed left ankle fracture, initial encounter S82.892A Closed displaced pilon fracture of left tibia with malunion S82.872P Closed fracture of shaft of left fibula with malunion S82.402P Frequent falls R29.6 Closed fracture of left fibula and tibia S82.202A, S82.402A History of CVA with residual deficit I69.30 Isolation/Infection: Isolation No Isolation Patient Infection Status None to display Nurse Assessment: Last Vital Signs: BP (!) 150/58 Pulse 76 Temp 97.1 F (36.2 C) (Temporal) Resp 17 Ht 5' 5 (1.651 m) Wt 205 lb 11.2 oz (93.3 kg) SpO2 97% BMI 34.23 kg/m Last documented pain score (0-10 scale): Pain Level: 2 Last Weight: Wt Readings from Last 1 Encounters: 04/08/21 205 lb 11.2 oz (93.3 kg) Mental Status: disoriented and alert IV Access: - None Nursing Mobility/ADLs: Walking Dependent Transfer Dependent Bathing Assisted Dressing Dependent Toileting Assisted Feeding Independent Cooler Servicer Assisted Med Delivery whole Wound Care Documentation and Therapy: Elimination: Continence: Bowel: No Bladder: No Urinary Catheter: None Colostomy/Ileostomy/Ileal Conduit: No Date of Last BM: 04/06/21 No intake or output data in the 24 hours ending 04/09/21 0842 No intake/output data recorded. Safety Concerns: History of Falls (last 30 days) Impairments/Disabilities: surgery LLE, NWB LLE Nutrition Therapy: Current Nutrition Therapy: - Oral Diet: Carb Control 3 carbs/meal (1500kcals/day) Routes of Feeding: Oral Liquids: Thin Liquids Daily Fluid Restriction: no Last Modified Barium Swallow with Video (Video Swallowing Test): not done Treatments at the Time of Hospital Discharge: Respiratory Treatments: N/A Oxygen Therapy: is not on home oxygen therapy. Ventilator: - No ventilator support Rehab Therapies: Physical Therapy and Occupational Therapy Weight Bearing Status/Restrictions: Non-weight bearing on left leg Other Medical Equipment (for information only, NOT a DME order): wheelchair, bedside commode and hospital bed Other Treatments: not applicable Patient's personal belongings (please select all that are sent with patient): Glasses, Dentures upper RN SIGNATURE: CASE MANAGEMENT/SOCIAL WORK SECTION Inpatient Status Date: Readmission Risk Assessment Score: Readmission Risk Risk of Unplanned Readmission: 18 Discharging to Facility/ Agency Name: [facility] Address: [address] [place] [id number] Fax: Dialysis Facility (if applicable) Name: Address: Dialysis Schedule: Phone: Fax: [employer] Operator/Digital Experience Manager signature: ICIAN SECTION Prognosis: Fair Condition at Discharge: Stable Rehab Potential (if transferring to Rehab): Fair Recommended Labs or Other Treatments After Discharge: - L ankle fractures- Remain non weight bearing in the LLE. Keep dressings clean, dry, and intact. Okay to replace as necessary. Continue neurovascular and skin checks. Ice and elevate. Follow up with Dr. Hagen in 2 weeks. Wound Care and Hygiene: -Wash hands before touching or changing dressings -Do Not touch incision -Leave dressing till post-op day 2 and reapply dressing if wound is leaking. If wound is dry, you may leave dressing off -May shower starting post-op day 3 - Closely monitor blood sugars - Stop plavix - Stop Nitrofurantoin Physician Certification: I certify the above information and transfer of Maryellen Eisenberg is necessary for the continuing treatment of the diagnosis listed and that she requires [facility] Facility for less 30 days. Update Admission H&P: No change in H&P PHYSICIAN SIGNATURE: Kelli Johnson MD - 04/07/2021 Images from the original note were not included. General Orthopedic Discharge Instructions The following instructions have been prepared to help you when you leave the hospital. These guidelines are for the post-surgery period. Activity: Ease into normal activity as tolerated. Weightbearing status: non weightbearing to left leg Medications: see medication instructions. Please be sure to read and understand the information provided by your pharmacy. Ask your Pharmacist if any questions. Wound Care and Hygiene: -Wash hands before touching or changing dressings -Do Not touch incision -Leave dressing till post-op day 2 and reapply dressing if wound is leaking. If wound is dry, you may leave dressing off -May shower starting post-op day 3 Call Your Doctor for: -Excessive bleeding/swelling of incision -Fever with temperature above 101 F Anesthesia Precautions: -Do Not operate any vehicle (automobile, bicycle, motorcycle) or power tools for 24 hours -Do Not drink alcoholic beverages for 24 hours -As precaution to prevent post-operative nausea and vomiting, start your diet with liquids, then progress to light foods. If tolerated, resume normal diet. Additional Instructions: Ice to affected area. This will help with pain and swelling. Contact your surgeon's office (Dr. Hagen) to set up an appointment in 2 weeks, or if you have any problems or questions. documented [facility] this [facility] Phone: Discharge summary note 11-07-2020 Note Date & Type Note Facility 11-07-2020 Note [facility] Discharge Summary and Transition Note Maryellen Eisenberg : 1940 ADMIT DATE: 11/04/2020 DISCHARGE DATE: 11/07/2020 PRIMARY CARE PHYSICIAN: Phillip Carlisle DO VISIT STATUS: Admission CODE STATUS: Full Code DISCHARGE DIAGNOSES: Principal Problem: Declining functional status Active Problems: Essential hypertension History of TIA (transient ischemic attack) Morbidly obese (HCC) Left foot pain Accidental fall from bed Resolved Problems: * No resolved hospital problems. * HOSPITAL COURSE: Patient is a 80 yo women with PMH below including stroke, DM II, HTN, and CAD who presented to the ED with functional decline and falls. UCx (+) for E Coli and pt started on CTX. PT recommended placement to which pt was agreeable. Due to faint distal pulses and falls she did have PVRs of LEs performed and vascular surgery saw pt however they did not recommend intervention. She was felt to be safe for discharge. ID stewardship communicated to me that they would not recommend further Abx on discharge for UTI. PROCEDURES: None CONSULTANTS: Vascular surgery, Geriatrics DISCHARGE MEDICATIONS: Significant Medication Changes: None Maryellen Eisenberg Home Medication Instructions GOLDEN:[id number] Printed on:11/07/20 1206 Medication Information Alcohol Swabs (ALCOHOL PADS) 70 % PADS Test twice a day aspirin 81 MG EC tablet Take 1 tablet by mouth daily atorvastatin (LIPITOR) 80 MG tablet Take 1 tablet by mouth daily clopidogrel (PLAVIX) 75 MG tablet Take 1 tablet by mouth daily Continuous Blood Gluc Sensor (FREESTYLE SALLIE 14 DAY SENSOR) MISC Apply sensor every 14 days for continuous glucose monitoring. Patient injecting insulin 2 times a day. Dx:E11.42, Z79.4 dilTIAZem (CARDIZEM CD) 240 MG extended release capsule Take 1 capsule by mouth 2 times daily Handicap Placard MISC by Does not apply route DX: Duration: 5 years insulin 70-30 (HUMULIN;NOVOLIN) (70-30) 100 UNIT per ML injection vial Change to 22 units each AM and 28 units each PM Lancets Misc. MISC Test bid Dx 250.00 Lift Chair MISC by Does not apply route lisinopril (PRINIVIL;ZESTRIL) 10 MG tablet Take 1 tablet by mouth daily RELION INSULIN SYR 0.5CC/30G 30G X 5/16 0.5 ML MISC Inject 1 each into the skin 2 times daily for 5000 doses triamcinolone (KENALOG) 0.1 % cream Apply topically 2 times daily. DIET: carb controlled ACTIVITY: up with assistance SIGNIFICANT DIAGNOSTIC STUDIES: UCx (+) for E Coli COMPLEXITY OF FOLLOW UP: [x] Moderate Complexity: follow up within 7-14 calendar days (16358) [] Severe Complexity: follow up within 7 calendar days (62526) FOLLOW UP TESTING, PENDING RESULTS OR REFERRALS AT TRANSITIONAL CARE VISIT: [x] Yes - Follow up with PCP [] No DISPOSITION: SNF FACILITY/HOME CARE AGENCY NAME: [facility] Follow up with Phillip Carlisle DO to be scheduled . Notification (telephone encounter) to PCP initiated: [] Yes [] No INSTRUCTIONS TO MA/SW: Please call patient on day after discharge (must document patient contacted within 2 business days of discharge). FOLLOW UP QUESTIONS FOR MA/SW: 1. Did you get medications filled and taking them as instructed from discharge? 2. Are you following your discharge instructions from your hospital stay? 3. Please confirm patient is scheduled for a follow up appointment within the above time frame. DISCHARGE TIME: > 30 minutes ADDENDUM Pt had DM with hyperglycemia [facility] Evaluation note Note Date & Type Note Facility documented in this encounter [facility] Work Phone: Hospital Course * Jovon Samaniego MD - 04/05/2020 1:18 PM EDT [facility] Discharge Summary and Transition Note Maryellen Eisenberg : 1940 ADMIT DATE: 04/01/2020 DISCHARGE DATE: 04/05/2020 PRIMARY CARE PHYSICIAN: Phillip Carlisle DO VISIT STATUS: Admission CODE STATUS: Full Code DISCHARGE DIAGNOSES: Principal Problem: Acute encephalopathy Active Problems: Essential hypertension 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 * HOSPITAL COURSE: 79yo WF with PMHx HTN, AIDAN (s/p R-CEA 2018), R-occipital stroke (2014) w/left- sided residual deficits who presented to [facility] ER from home. Brought in by family who found her with odd behavior and speech. Questionable worsening of motor function on left-side. Presented as stroke team, initial NIH 4.CT Head, CTA H&N negative for acute change (known mild carotid disease with R-FEED MIXER territory infa rct). Patient required restraints while in ER due to agitation, which were continued on general medical floor. Seen by neurology and geriatrics. MRI showing small acute infarcts R-subinsular and left-peritrigonal white matter for which she was started on plavix. Started on IV atbx for UTI and completed course while admitted. Her mental status continued to improve with hydration, medication adjustment (for AVE and hyperglycemia). PT/OT recommended facility, however, family ultimately decided to return home, partly due to current pandemic. They were made aware of her weakness requiring 2-3 assist. HHC and bedside commodewere ordered. Prescriptions were sent to pharmacy of choice, including plavix x1 month, and all new diabetic supplies. She was seen by neurology, geriatrics, myself, PT and SW prior to discharge. Per family (patient's and DIL), current behavior and weakness at baseline. Patient adamantly refusing to drink nectar thickened liquids. BUILDING CONSTRUCTION SUPERVISOR ordered. PROCEDURES: none CONSULTANTS: Neurology Geriatrics DISCHARGE MEDICATIONS: Significant Medication Changes: - START plavix x1 month - DECREASE insulin to 25 units BID WC - STOP lisinopril - STOP Hctz - START ergocalciferol Maryellen Eisenberg Home Medication Instructions GOLDEN:[id number] Printed on:04/05/20 9837 Medication Information Alcohol Swabs (ALCOHOL PADS) 70 % PADS Test twice a day aspirin 81 MG EC tablet Take 1 tablet by mouth daily atorvastatin (LIPITOR) 80 MG tablet Take 1 tablet by mouth daily Blood Glucose Monitoring Suppl (BLOOD GLUCOSE MONITOR SYSTEM) w/Device KIT 1 Units by Does not apply route three times daily Cheapest option per insurance blood glucose test strips (ASCENSIA AUTODISC ;ONE TOUCH ULTRA TEST ) strip 1 each by In Vitro route 4 times daily Pt tests 4 times daily Dx 250.00 blood glucose test strips (GLUCOCOM TEST) strip 1 each by In Vitro route daily As needed. clopidogrel (PLAVIX) 75 MG tablet Take 1 tablet by mouth daily diltiazem (CARDIZEM CD) 240 MG extended release capsule Take 1 capsule by mouth 2 times daily Handradha Frankel MISC by Does not apply route DX: Duration: 5 years insulin 70-30 (HUMULIN;NOVOLIN) (70-30) 100 UNIT per ML injection vial Inject 25 Units into the skin 2 times daily (before meals) Insulin Pen Needle (PEN NEEDLES 31GX5/16 ) 31G X 8 MM MISC 1 each by Does not apply route daily Lancets Misc. MISC Test bid Dx 250.00 Lift Chair MISC by Does not apply route RELION INSULIN SYR 0.5CC/30G 30G X 5/16 0.5 ML MISC Inject 1 each into the skin 2 times daily for 5000 doses vitamin D (ERGOCALCIFEROL) 1.25 MG (45796 UT) CAPS capsule Take 1 capsule by mouth once a week DIET: modified consistency: dysphagia with nectar thickened (patient already told me she refuses todo this at home - BUILDING CONSTRUCTION SUPERVISOR ordered) ACTIVITY: per PT/OT, as tolerated SIGNIFICANT DIAGNOSTIC STUDIES: CT Head, Brain Perfusion, CTA H&N XR Chest MRI Brain US Retroperitoneal Carotid duplex COMPLEXITY OF FOLLOW UP: [] Moderate Complexity: follow up within 7-14 calendar days (74195) [x] Severe Complexity: follow up within 7 calendar days (54414) FOLLOW UP TESTING, PENDING RESULTS OR REFERRALS AT TRANSITIONAL CARE VISIT: [x] Yes - repeat BGT - repeat BP - restart HCTZ or lisinopril as able - repeat BMP (had AVE during admission) [] No DISPOSITION: Home with Home health FACILITY/HOME CARE AGENCY NAME: [facility] Follow up with Phillip Carlisle DO scheduled Notification (telephone encounter) to PCP initiated: [x] Yes [] No INSTRUCTIONS TO MA/SW: Please call patient on day after discharge (must document patient contacted within 2 business days of discharge). FOLLOW UP QUESTIONS FOR MA/SW: 1. Did you get medications filled and taking them as instructed from discharge? 2. Are you following your discharge instructions from your hospital stay? 3. Please confirm patient is scheduled for a follow up appointment within the above time frame. DISCHARGE TIME: > 30 minutes documented in this encounter Discharge Instructions * Discharge Instr - Lab* Michelle Hannon LPN - 04/05/2020 1:28 PM EDT Your physician has ordered skilled home care services for you. Your home care will be provided by: [facility] [phone] SCHEDULING [phone] * Discharge Instr - ALLISON* Sherlyn Martinez, ERIK - 04/05/2020 3:18 PM EDT Continuity of Care Form * Additional Instructions* Sherlyn Martinez, ERIK - 04/02/2020 Refer to the Understanding Stroke Booklet given to you, written material provided to patient/family, addressing all signs & symptoms of a stroke, which are: sudden numbness or weakness, especially on one side of the body sudden confusion sudden difficulty speaking or understanding sudden loss of vision sudden dizziness or loss of balance or coordination sudden severe headache Explained the need to call EMS ([phone]) immediately if signs & symptoms occur. Discussed medications that the patient is taking, will review medications again prior to discharge, risk factors, and the need for follow-up with a physician/CONSTRUCTION DRIVER/PA after discharge. Discussed the patient s personal risk factors for Stroke /TIA with patient/family, and ways to reduce the risk for a recurrent stroke. Patient's personal risk factors which were identified are: [x] High blood pressure [x] High cholesterol [] Atrial fibrillation [x] Diabetes [] Smoking [x] Overweight [x] Lack of Exercise [] Sleep apnea [] Prior heart disease or heart attack [] Excessive alcohol use [] Use of illicit drugs [x] Personal history of previous TIA or stroke [] Family history of stroke or heart disease [x] Carotid stenosis [] Heart failure [] Patent Foramen Ovale [] Migraine [] Hormone replacement therapy [] Current (up to six weeks post ) [] Depression [] Sickle Cell [] Renal insufficiency - chronic [] None Refer to Understanding Stroke Booklet. Advised patient that risk for stroke/TIA can be reduced by modifying/controlling risk factors. Patient advised to take medications as prescribed, which will be detailed in the discharge instructions, and to not stop taking them without consulting a physician. In addition, pt. advised to maintain a healthy diet, exercise regularly and to not smoke. * Attachments The following attachments cannot be sent through Care Everywhere. * Aspirin and Antiplatelets: Cardiovascular Prevention: Safety (Turkish) * clopidogrel (Turkish) documented in this encounter History of Present Illness * Gurpreet Gr, PT - 04/05/2020 1:57 PM EDT Physical Therapy Facility/Department: [facility] Daily Treatment Note NAME: Maryellen Eisenberg : 1940 Date of Service: 04/05/2020 Discharge Recommendations: 24 hour supervision or assist, Home with Home health PT Assessment Body structures, Functions, Activity limitations: Decreased functional mobility ;Decreased ADL status;Decreased strength;Decreased balance;Decreased posture;Decreased safe awareness Assessment: pt is much improved functionally from yesterday; mobility is min assist of 1-2 overall;anticipate pt returning home at disch with assist from family; recommend home PT for balance and gait Prognosis: Fair Decision Making: Low Complexity PT Education: Family Education;General Safety;Functional Mobility Training;Transfer Training REQUIRES PT FOLLOW UP: Yes Activity Tolerance Activity Tolerance: Patient Tolerated treatment well Patient Diagnosis(es): The primary encounter diagnosis was Stroke-like symptoms. Diagnoses of Uncontrolled hypertension and Confusion were also pertinent to this visit. 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 has a past surgical history that includes Cholecystectomy (1984); Hysterectomy, total abdominal (N/A, 1984); Colonoscopy (2006); Carotid endarterectomy (Right, 2007); Hip fracture surgery (Left, 10/20/2015); and Cataract removal (Bilateral, 2011). Restrictions Restrictions/Precautions Restrictions/Precautions: Fall Risk(+chair alarm) Required Braces or Orthoses?: No Position Activity Restriction Other position/activity restrictions: artemio bloom Subjective General Chart Reviewed: Yes Family / Caregiver Present: Yes(Daughter) Subjective Subjective: pt up in chair; daughter requesting pt be seen by PT due to wants to take pt home and feels pt is doing better Pain Screening Patient Currently in Pain: Denies Vital Signs Patient Currently in Pain: Denies Orientation Orientation Orientation Level: Disoriented to time(Oriented to year) Cognition Objective Bed mobility Supine to Sit: Minimal assistance Sit to Supine: Supervision Scooting: Supervision Transfers Sit to Stand: Minimal Assistance Stand to sit: Minimal Assistance Ambulation Ambulation?: Yes Ambulation 1 Surface: level tile Device: Hand-Held Assist Assistance: Minimal assistance Quality of Gait: 1-2 person assist Gait Deviations: Slow Ros[place];Decreased step length;Decreased step height Distance: 4-5 steps x2 bed<->chair Balance Posture: Fair Sitting - Static: Good Sitting - Dynamic: Good;- Standing - Static: Fair Standing - Dynamic: Fair;- AM-PAC Score Goals Short term goals Time Frame for Short term goals: 2 weeks Short term goal 1: indep supine <-> sit - PROGRESSING Short term goal 2: indep sit <-> stand - PROGRESSING Short term goal 3: modif indep ambulate 50ft with/without device - PROGRESSING Short term goal 4: ascend/descend entry steps modif indep - NOT ADDRESSED Patient Goals Patient goals : to go home Plan Plan Times per week: 3-5x Plan weeks: 2 weeks Current Treatment Recommendations: Strengthening, Balance Training, Functional Mobility Training, Transfer Training, ADL/Self-care Training, Stair training, Gait Training, Equipment Evaluation, Education, & procurement, Patient/Caregiver Education & Training, Safety Education & Training, Home Exercise Program Safety Devices Type of devices: Call light within reach, Gait belt, Patient at risk for falls, Nurse notified, Left in chair, Chair alarm in place, All fall risk precautions in place Therapy Time Individual Concurrent Group Co-treatment Time In 1255 Time Out 1305 Minutes 10 Timed Code Treatment Minutes: 10 Minutes(Functional mobility) Patient s Physical Therapy Plan of Care supervision is transferred to [facility] Rehab Department Physical Therapist. This PT wore N95, face shield, and gloves throughout the entire session. Gurpreet Gr, PT * Clary Cheek MD - 04/05/2020 1:03 PM EDT [facility] Inpatient Consult Service Admission Date: 04/01/2020 Assessment Principal Problem: Acute encephalopathy Active Problems: Essential hypertension 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 * Plan 1) Metabolic encephalopathy -Improving, close to baseline - EEG didn't show any seizure focus -Home medications with potential for withdrawal: none -Ongoing assessment for potential constipation and urinary retention. Last bowel movement - unknown -Assess and treat for pain first should agitation develop -Delirium and insomnia protocols implemented. -Schedule melatonin qHS. -QTc = 478 - continue schedule Seroquel 12.5 mg qHS , discontinue for discharge -PRN - Seroquel 12.5 mg q 6 h prn agitation. Likely does Not need for discharge -Discontinued PRN Ativan - no use in the last 24 hours. -Recommendations: Avoid sedating/anticholinergic medications, encourage sleep hygiene, encourage family visits, optimize sensory input and access to assistive devices where indicated, encourage time up in chair as able and D/c Negron, restraints, IV lines, as able 2) Cognitive deficits -Difficult to tell from family's history if noncompliance sounds due to cognitive impairment vs choice of not taking meds. -I do suspect some level of baseline cognitive impairment. - Thyroid-stimulating hormone and Vit B12 within normal limits -CT-head reviewed, remote right FEED MIXER infarct. MRI Showed small acute infarct in right subinsular andleft peritrigonal white matter with extensive chronic ischemic changes. -Recommend follow-up at [place] for [facility]. Added to discharge instructions. 3) Urinary incontinence -Oxybutynin has high anticholinergic side effects - increased risk for falls and confusion. -Recommend replacing with trospium 20 mg BID and continue at discharge 4) Declining functional status -Due to acute medical condition, hospitalization , CVA -Discussed discharge planning with dtgr-in-law in detail - family concerned for risk of COVID19 at SNF, prefer care at home. -Family has care plan for home - dtgr from [place] came to [place] 2 days ago, able to stay with patient 24/7for the next 4 - 6 weeks. Son and dtg-in-law live [place] [address], agreeable to work with [facility]. This seems like reasonable plan. -Recommended family consider a physicians house calls program to take over primary care. 5) Advanced care planning -Dtgr-in-law concerned about the dysphagia/nectar thick diet. Same diet was ordered after patient'sfirst stroke, and she would noo follow it. Knows when she returns home, she won't use thickener. -Discussed if patient'/family wanted to liberalize diet, recommended a DNR. Explained meaning of DNR, dtgr-in-law thought she had one, but what she describes sounds like living will. Wanted to discuss and confirm with rest of the family, but thinks they would agree for a DNR. Dtgr-in-law aware thatPCP can sign DNR form. Will remain full code at this time, until family is in agreement. Discussed with primary service, RN, family During this encounter, I spent over 51% of the total encounter time of 35 minutes counseling or coordinating care and provided discussion regarding work- up, test results, treatment options and associated risks and benefits for the problems detailed above, expected disease course and rehabilitation care needs. Subjective Chief Complaint: altered mental status Geriatrics consulted for encephalopathy and noncompliance HPI- The patient is known to me. 79 y.o. year-old female admitted to acute care from home for altered mental status. Diagnosed with small acute infarct in right subinsular and left peritrigonal white matter. Interval History: Remains on telemetry. No acute events overnight. Nursing reports no agitation. Has been up in chair, RN able to get her up with 1 person. Has ate well today, but will not drink thick liquids. Patient denies complaints today. Says she wants to go home to see her cat. Knows she is in [facility] and that it is March 2020. Dtgr-in-law and patient's at bedside. Dtgr-in-law concerned about recommendation for SNF, concerned about COVID19 infection risk, but more concerned from isolation from family. Says patient will not do well with being from and will likely stop working with therapy. Pt's dtgr came in from [place] this week with the plan to stay with patient for the next month. Mental status is close to her baseline. Seen by PT. Requires max assist x 2 for bed mobility, mod assist x 2 for transfers and functional mobility, and max assist x 2 for ADL's.. Ambulated : Pt able to take several steps to the right towards HOB with mod assist x 2. Recommending short term SNF for rehab. Review of Systems Constitutional: Negative for activity change and appetite change. HENT: Positive for trouble swallowing. Negative for hearing loss. Eyes: Negative for visual disturbance. Respiratory: Negative for cough and shortness of breath. Cardiovascular: Negative for chest pain and leg swelling. Gastrointestinal: Negative for constipation. Genitourinary: Negative for difficulty urinating. Musculoskeletal: Negative for arthralgias and back pain. Neurological: Positive for weakness. Negative for dizziness. Psychiatric/Behavioral: Negative for confusion and sleep disturbance. Objective BP (!) 185/84 Pulse 97 Temp 97.5 F (36.4 C) (Temporal) Resp 18 Ht 5' 3 (1.6 m) Wt 217 lb(98.4 kg) SpO2 99% BMI 38.44 kg/m No intake or output data in the 24 hours ending 04/05/20 1303 Patient Vitals for the past 96 hrs (Last 3 readings): Weight 04/01/202001 217 lb (98.4 kg) 04/01/201999 217 lb (98.4 kg) Current Facility-Administered Medications: lactated ringers infusion, , Intravenous, Continuous vitamin D (ERGOCALCIFEROL) capsule 50,000 Units, 50,000 Units, Oral, Weekly sodium chloride flush 0.9 % injection 10 mL, 10 mL, Intravenous, 2 times per day sodium chloride flush 0.9 % injection 10 mL, 10 mL, Intravenous, PRN acetaminophen (TYLENOL) tablet 650 mg, 650 mg, Oral, Q4H PRN OR acetaminophen (TYLENOL) suppository 650 mg, 650 mg, Rectal, Q4H PRN ondansetron (ZOFRAN) injection 4 mg, 4 mg, Intravenous, Q6H PRN atorvastatin (LIPITOR) tablet 40 mg, 40 mg, Oral, Nightly aspirin EC tablet 81 mg, 81 mg, Oral, Daily OR aspirin suppository 300 mg, 300 mg, Rectal, Daily labetalol (NORMODYNE;TRANDATE) injection 10 mg, 10 mg, Intravenous, Q10 Min PRN bisacodyl (DULCOLAX) suppository 10 mg, 10 mg, Rectal, Daily PRN enoxaparin (LOVENOX) injection 40 mg, 40 mg, Subcutaneous, Daily glucose (GLUTOSE) 40 % oral gel 15 g, 15 g, Oral, PRN dextrose 50 % IV solution, 12.5 g, Intravenous, PRN glucagon (rDNA) injection 1 mg, 1 mg, Intramuscular, PRN dextrose 5 % solution, 100 mL/hr, Intravenous, PRN insulin lispro protamine & lispro (HUMALOG MIX) (75-25) 100 UNIT per ML injection vial SUSP 25 Units, 25 Units, Subcutaneous, BID WC insulin lispro (HUMALOG) injection vial 0-18 Units, 0-18 Units, Subcutaneous, TID WC insulin lispro (HUMALOG) injection vial 0-9 Units, 0-9 Units, Subcutaneous, Nightly melatonin ER tablet 2 mg, 2 mg, Oral, Nightly QUEtiapine (SEROQUEL) tablet 12.5 mg, 12.5 mg, Oral, Nightly QUEtiapine (SEROQUEL) tablet 12.5 mg, 12.5 mg, Oral, Q6H PRN Physical Exam Constitutional: appears well-developed. Resting comfortably, appears in no distress. Mouth/Throat: Oropharynx is clear and moist. Eyes: Conjunctivae normal. Cardiovascular: Normal rate, regular rhythm and normal heart sounds. No edema. Pulmonary/Chest: Effort normal and breath sounds normal. Abd: +BS, soft, nontender, nondistended Neurological: Alert, oriented to self, person, place, month, year. No cranial nerve deficit. No tremor, no rigidity. Skin: Skin is warm and dry. No rash noted. Psych: alert, full affect, normal speech pattern. Labs and Imaging: Recent Results (from the past 24 hour(s)) POCT Glucose Collection Time: 04/04/20 5:37 PM Result Value Ref Range POC Glucose 149 (H) 70 - 100 mg/dL POCT Glucose Collection Time: 04/04/20 8:06 PM Result Value Ref Range POC Glucose 183 (H) 70 - 100 mg/dL Magnesium Collection Time: 04/05/20 12:40 AM Result Value Ref Range Magnesium 2.0 1.6 - 2.3 mg/dL Phosphorus Collection Time: 04/05/20 12:40 AM Result Value Ref Range Phosphorus 3.8 2.5 - 4.5 mg/dL Comprehensive Metabolic Panel w/ Reflex to MG Collection Time: 04/05/20 12:40 AM Result Value Ref Range Sodium 139 135 - 145 mmol/L Potassium 3.9 3.5 - 5.1 mmol/L Chloride 108 (H) 98 - 107 mmol/L CO2 26 22 - 30 mmol/L Anion Gap 6 NA Glucose 67 (L) 70 - 100 mg/dL BUN 31 (H) 7 - 20 mg/dL CREATININE 0.95 0.52 - 1.25 mg/dL eGFR 66.6 >60 mL/min EGFR IF NonAfrican Citizen Of [place] 57.5 (A) >60 mL/min Calcium 9.1 8.4 - 10.4 mg/dL Albumin,Serum 3.3 (L) 3.5 - 5.0 g/dL Total Protein 6.3 6.3 - 8.2 g/dL Total Bilirubin 0.4 0.2 - 1.3 mg/dL Alkaline Phosphatase 141 (H) 38 - 126 U/L ALT 12 0 - 34 U/L AST 24 15 - 46 U/L CBC Collection Time: 04/05/20 12:40 AM Result Value Ref Range WBC 5.5 3.6 - 10.7 10*3/uL RBC 4.09 3.80 - 5.20 10*6/uL Hemoglobin 11.8 11.7 - 16.0 g/dL Hematocrit 34.6 (L) 35.0 - 47.0 % MCV 84.5 79.0 - 98.0 fL MCH 28.8 26.0 - 34.0 pg MCHC 34.1 32.0 - 36.0 % RDW 13.7 11.5 - 14.5 % Platelets 143 140 - 440 10*3/uL MPV 9.6 7.4 - 10.4 fL POCT Glucose Collection Time: 04/05/20 8:00 AM Result Value Ref Range POC Glucose 127 (H) 70 - 100 mg/dL POCT Glucose Collection Time: 04/05/20 11:57 AM Result Value Ref Range POC Glucose 98 70 - 100 mg/dL Lab Results Component Value Date TSH 0.699 04/02/2020 Lab Results Component Value Date [id number] 403 04/02/2020 Lab Results Component Value Date VITD25 <13 (L) 04/03/2020 Reviewed: active problem list, medication list, social history, notes from last encounter, lab results, imaging Follow-up: will follow with you * Izabela Pond DO - 04/05/2020 10:47 AM EDT Neurology Progress Note Patient: Maryellen Eisenberg Unit/Bed:915/728720 Date of : 1940 Acct: [id number] Admit date: 04/01/2020 No chief complaint on file. Patient Seen, Chart, Physician notes, Labs, Radiology studies reviewed. Subjective: Patient pleasant and cooperative this AM. Feels fine and has no complaints. Denies weakness, numbness, or incoordination. Denies hallucinations. Past, Family, Social History unchanged from admission. Diet: Dietary Nutrition Supplements: Frozen Oral Supplement DIET DYSPHAGIA MINCED AND MOIST; Low Sodium (2 GM); Mildly Thick ([place]) Medications: Scheduled Meds: vitamin D 50,000 Units Oral Weekly sodium chloride flush 10 mL Intravenous 2 times per day atorvastatin 40 mg Oral Nightly aspirin 81 mg Oral Daily Or aspirin 300 mg Rectal Daily enoxaparin 40 mg Subcutaneous Daily insulin lispro prot & lispro 25 Units Subcutaneous BID WC insulin lispro 0-18 Units Subcutaneous TID WC insulin lispro 0-9 Units Subcutaneous Nightly melatonin 2 mg Oral Nightly QUEtiapine 12.5 mg Oral Nightly Continuous Infusions: lactated ringers 75 mL/hr at 04/03/20 0915 dextrose PRN Meds:sodium chloride flush, acetaminophen OR acetaminophen, ondansetron, labetalol, bisacodyl, glucose, dextrose, glucagon (rDNA), dextrose, LORazepam, QUEtiapine Objective: Vitals: BP (!) 147/81 Pulse 94 Temp 96.5 F (35.8 C) (Temporal) Resp 18 Ht 5' 3 (1.6 m) Wt 217 lb (98.4 kg) SpO2 99% BMI 38.44 kg/m Physical Exam: Alert and grossly oriented, with some hesitancy. Attention and concentration intact; easily able torepeat a series of 6 digits. Language appropriate, with no aphasia. Word list generation 12 animals. Recall 2 of 3 objects at 4 minutes. Did not get third with a category hint. Pupils equal. EOMI. Facial strength symmetric. Tone normal to minimally increased. Strength MRC 5. Sensation symmetric to light touch. Rapid alternating fine finger movements symmetric. DTRs not evoked. 24 hour intake/output: Intake/Output Summary (Last 24 hours) at 04/05/2020 1047 Last data filed at 04/04/2020 1118 Gross per 24 hour Intake Output 300 ml Net -300 ml Last 3 weights: Wt Readings from Last 3 Encounters: 04/01/20 217 lb (98.4 kg) 09/05/19 213 lb (96.6 kg) 03/01/19 228 lb (103.4 kg) CBC: Recent Labs 04/03/20 0237 04/04/20 0528 04/05/20 0040 WBC 8.7 6.3 5.5 HGB 12.3 12.3 11.8 PLT 129* 124* 143 BMP: Recent Labs 04/03/20 0238 04/04/20 0528 04/05/20 0040 NA 132* 136 139 K 4.7 4.0 3.9 CL 102 104 108* CO2 21* 24 26 BUN 42* 42* 31* CREATININE 1.97* 1.29* 0.95 GLUCOSE 184* 196* 67* Calcium: Recent Labs 04/05/20 0040 CALCIUM 9.1 Magnesium: Recent Labs 04/05/20 0040 MG 2.0 Glucose: Recent Labs 04/04/20 1737 04/04/20200504/05/20 0800 POCGLU 149* 183* 127* Radiology reports as per the Radiologist Mri Brain Without Contrast ( Review Imaging Obtained In Last 2 Yrs To Determine Indication) Result Date: 04/02/2020 Patient Name: MARYELLEN EISENBERG ---MRI--- Exam Date/Time 04/02/2020 19:31:31 EDT Exam MRI Brain w/o Contrast Ordering Physician MD JULIAN BRANAVAN CPT4 Codes 40306 () Reason For Exam ischemic stroke Report MRI OF THE BRAIN WITHOUT GADOLINIUM CLINICAL INDICATION: ischemic stroke TECHNIQUE: Routine MRI of the brain without gadolinium. COMPARISON: 07/11/2008 FINDINGS: Extensive motion artifact despite medication on axial gradient echo and coronal T2 images. There are two acute infarcts seen on diffusion-weighted imaging. One is located in the right subinsular region measuring about 6.4 x 6.4 mm. Second is in the peritrigonal white matter on the left. Maximum cross-sectional size 4.8 x 5.7 mm. There is a chronic right FEED MIXER infarct. No hydrocephalus. No effacement of the basal cisterns. There are patchy and confluent areas of T2 bright signal in the periventricular and subcortical white matter, which are nonspecific, but may r elate to chronic small vessel ischemic changes. No hemorrhage, mass effect, or midline shift. No pathologic extra-axial fluid collection identified. Tiny chronic cerebellar infarcts bilaterally. Major intracranial flow voids are visualized. IMPRESSION: 1. Small acute infarcts right subinsular and left peritrigonal white matter. 2. Extensive chronic ischemic changes. Critical Test Results: Resultswere conveyed to Dr. Julian via [employer] messaging at 7:47 PM on 04/02/2020. Report Dictated on --- Final --- Dictated: 04/02/2020 7:39 pm Dictating Physician: MD LLANES JOHN R Signed Date and Time: 04/02/2020 7:49 pm Signed by: MD LLANES JOHN R Transcribed Date and Time: 04/02/2020 7:39 Carotid ultrasound < 50% stenosis Assessment: 1) Episodes of confusion - possibly seizure / post-ictal; DDx includes effect of stroke, but would not expect strokes seen on MRI to cause confusion 2) ? Incidental ? finding of 2 strokes on MRI 3) Probably very mild dementia. At present she does not appear to have a significant delirium. Plan: 1) Reconsider possibility of seizures and empiric treatment if there are recurrent episodes of transient confusion 2) Plavix for three weeks with aspirin; just one antiplatelet Tx thereafter 3) Could consider Aricept or similar Will sign off, but please call if there are further in-patient concerns. Neurology * Jovon Samaniego MD - 04/05/2020 7:49 AM EDT [facility] Progress Note Maryellen Eisenberg : 1940(79 y.o.) Date: 04/05/20 Subjective: HPI The patient complains of : altered behavior 79yo WF with PMHx HTN, AIDAN (s/p R-CEA 2018), R-occipital stroke (2014) w/left- sided residual deficits who presented to [facility] ER from home. Brought in by family who found her with odd behavior and speech. Questionable worsening of motor function on left-side. Presented as stroke team, initial NIH 4.CT Head, CTA H&N negative for acute change (known mild carotid disease with R-FEED MIXER territory infa rct). Patient required restraints while in ER due to agitation, which were continued on general medical floor. Seen by neurology and geriatrics. MRI showing small acute infarcts R-subinsular and left-peritrigonal white matter for which she was started on plavix. Started on IV atbx for UTI. Labs and vitals reviewed. No vitals documented this AM. SCr 1.29 -->0.95. glucose improved in upper 100s. Troponin downtrended. AST resolved. Patient alert, talkative, cooperative, sitting upright in chair. Exhibiting some paranoid behavior (thinks i'm tricking her when I ask if the chair foot rest is why she can't get up, and also believes I'm the one sending her to a facility). Calls out and says oh lord what have I done to deserve this. Requesting to speak to her because she would liek to go home today. When I state her daughter was discussing, she said well is she here? No. So why would she decide? Denies chest pain or SOB. Denies fever or chills. followign this eval, I called into the room per [id number] (Jessica) request. After discussion, family would like to take aptietn home. Aware she may need significant amount of assistance due to weakness. Medication changes described. New diabetic supplies sent. DME for BSC printed. Scheduled Meds: amoxicillin-clavulanate 1 tablet Oral 2 times per day vitamin D 50,000 Units Oral Weekly sodium chloride flush 10 mL Intravenous 2 times per day atorvastatin 40 mg Oral Nightly aspirin 81 mg Oral Daily Or aspirin 300 mg Rectal Daily enoxaparin 40 mg Subcutaneous Daily insulin lispro prot & lispro 25 Units Subcutaneous BID WC insulin lispro 0-18 Units Subcutaneous TID WC insulin lispro 0-9 Units Subcutaneous Nightly melatonin 2 mg Oral Nightly QUEtiapine 12.5 mg Oral Nightly Continuous Infusions: lactated ringers 75 mL/hr at 04/03/20 0915 dextrose PRN Meds:sodium chloride flush, acetaminophen OR acetaminophen, ondansetron, labetalol, bisacodyl, glucose, dextrose, glucagon (rDNA), dextrose, perflutren lipid microspheres, sodium chloride flush, LORazepam, QUEtiapine Review of Systems Unable to perform ROS: Mental status change Interval Pertinent History: Social History Tobacco Use Smoking status: Never Smoker Smokeless tobacco: Never Used Substance Use Topics Alcohol use: No Alcohol/week: 0.0 standard drinks Frequency: Never Objective: Patient Vitals for the past 24 hrs: BP Temp Temp src Pulse Resp SpO2 04/04/202002 (!) 141/81 97.4 F (36.3 C) Temporal 96 16 98 % 04/04/20 1528 (!) 155/69 97.5 F (36.4 C) Temporal 94 17 98 % 04/04/20 1118 (!) 134/59 96.8 F (36 C) Temporal 93 14 98 % Average, Min, and Max for last 24 hours Vitals: TEMPERATURE: Temp Av.2 F (36.2 C) Min: 96.8 F (36 C) Max: 97.5 F (36.4 C) RESPIRATIONS RANGE: Resp Av.7 Min: 14 Max: 17 PULSE RANGE: Pulse Av.3 Min: 93 Max: 96 BLOOD PRESSURE RANGE: Systolic (24hrs), Av , Min:134 , Max:155 ; Diastolic (24hrs), Av, Min:59, Max:81 PULSE OXIMETRY RANGE: SpO2 Av % Min: 98 % Max: 98 % I/O last 3 completed shifts: In: - Out: 300 [Urine:300] Physical Exam Vitals signs and nursing note reviewed. Constitutional: Appearance: She is obese. She is not ill-appearing or diaphoretic. Comments: Sitting upright, appears comfortable, nontoxic, NAD, not dyspneic HENT: Head: Normocephalic and atraumatic. Cardiovascular: Rate and Rhythm: Normal rate and regular rhythm. Pulmonary: Breath sounds: No wheezing. Abdominal: General: There is no distension. Palpations: Abdomen is soft. There is no mass. Musculoskeletal: Right lower leg: No edema. Left lower leg: No edema. Skin: General: Skin is warm and dry. Comments: Very dry skin noted Neurological: Comments: Moving all 4 extremities, residual left-sided weakness at baseline Lab Results Component Value Date WBC 5.5 04/05/2020 HGB 11.8 04/05/2020 HCT 34.6 (L) 04/05/2020 MCV 84.5 04/05/2020 PLT 143 04/05/2020 Lab Results Component Value Date NA 139 04/05/2020 K 3.9 04/05/2020 CL 108 04/05/2020 CO2 26 04/05/2020 BUN 31 04/05/2020 CREATININE 0.95 04/05/2020 GLUCOSE 67 04/05/2020 CALCIUM 9.1 04/05/2020 Lab Results Component Value Date LABA1C 9.0 (H) 04/02/2020 MRI Brain 04/02/20 IMPRESSION: 1. Small acute infarcts right subinsular and left peritrigonal white matter. 2. Extensive chronic ischemic changes. Additional results of the last 24 hours have been reviewed. Assessment and Plan: Principal Problem: Acute encephalopathy Active Problems: Essential hypertension 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 * Assessment/Plan: # Acute encephalopathy, toxic v metabolic - near baseline now - in setting noncompliance, accelerated HTN, hyperglycemia and prior stroke - required 5mg Haldol and 1mg versed at admission - stroke neuro consulted - MRI (+) small acute infarcts - echo WNL - on aspirin, statin, PT/OT, dysphagia diet - infectious workup: oconnell culture, procal, RVP - aggressive BGT/insulin adjustment - meds/OARRS reviewed - last filled tramadol in November 2019 # Small acute infarcts - noted on MRI 04/02 - neuro on-board - started on plavix, CUS p # UTI - change ceftriaxone to augmentin x1 day (lost IV) # AVE, suspect pre-renal in setting of hypotension 04/03, now improved - meds reviewed, non-nephrotox - check urine lytes, renal ultrasound - FeUrea 4.3% (pre-renal disease) --> continue IVF - echo WNL, no RWMA # Elevated troponin - downtrended - in setting of agitation, accelerated HTN - patient asymptomatic cardiac-metzger - suspect demand but check tele, EKG and echo - EKG appears unchanged - echo WNL, no RWMA # T2DM, insulin-requiring, uncontrolled # Hyperglycemia - no insulin given overnight/this AM - in setting of noncompliance - A1c 9.0 - home meds: insulin 70/30: 54units qAM, 44 units qHS - restart at 25units (of 75/25 mix) BID WC # Hypertension, accelerated - suspect due to noncompliance - home meds: diltiazem, lisinopril, HCTZ - use IV while unable to take oral # Hyponatremia, mild # Elevated alkaline phosphatase # Hx AIDAN, s/p CEA # Hx stroke DVTProphylaxis: lovenox 40 q 24hr - creatinine clearance >30 Disposition:await test results, await showroom consultant recommendations and await clinical improvement Medically stable for discharge, awaiting dispo I spent over 51% of total time providing counseling or incoordination of care: 35 minutes patient and family updated, I personally examined the patient and I personally reviewed chart, data, labs radiology reports D/w URVASHI Bishop) via phonecall 6AM-6PM please page: 6PM-6AM please page: [facility] Internal Medicine * Jeffrey Bautista MD - 04/04/2020 12:30 PM EDT [facility] Geriatric Medicine Inpatient Consult Service Admission Date: 04/01/2020 Assessment Principal Problem: Acute encephalopathy Active Problems: Essential hypertension 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 * Plan 1) Metabolic encephalopathy -Improving , likely secondary due to CVA , hospitalization , possible seizure , hyponatremia, dehydration - Patient received 3 doses of IV lorazepam yesterday , please avoid giving benzodiazepines as they can worsen confusion. Use p.r.n. Seroquel. Please use lorazepam only if patient is not taking orally - EEG didn't show any seizure focus -Home medications with potential for withdrawal: none -Ongoing assessment for potential constipation and urinary retention. Last bowel movement - unknown -Assess and treat for pain first should agitation develop -Delirium and insomnia protocols implemented. -Schedule melatonin qHS. -QTc = 478 - continue schedule Seroquel 12.5 mg qHS , discontinue after 1 more dose -PRN - Seroquel 12.5 mg q 6 h prn agitation -If unable to take PO - ok for Ativan 0.5 mg q 6 h prn -Recommendations: Avoid sedating/anticholinergic medications, encourage sleep hygiene, encourage family visits, optimize sensory input and access to assistive devices where indicated, encourage time up in chair as able and D/c Negron, restraints, IV lines, as able 2) Cognitive deficits - Minicog : 3 word recall, 0/3 . CAM positive - Patient is still confused and unable to complete MMSE today, will reattempt as able -Decline in IADL of medications -Difficult to tell from family's history if this sounds due to cognitive impairment vs choice of not taking meds. - Thyroid-stimulating hormone and Vit B12 within normal limits -CT-head reviewed, remote right FEED MIXER infarct. MRI Showed small acute infarct in right subinsular andleft peritrigonal white matter with extensive chronic ischemic changes. -Recommend follow-up at [facility]. Added to discharge instructions. 3) Fall - likely precipitated by deconditioning, old age, encephalopathy and stroke - Physical and occupational therapy recommending physiotherapy at skilled facility - Please check orthostatic vital sign -Echocardiogram Showing normal ejection fraction with no regional wall motion abnormalities - Vitamin D levels are low, will start supplement. Was admitted via follow-up is brought to the flow does remain krystal -Home meds reviewed - fall risk associated with oxybutynin and antihypertensives. 4) Urinary incontinence -Oxybutynin has high anticholinergic side effects - increased risk for falls and confusion. -Recommend replacing with trospium 20 mg BID and continue at discharge 5) Declining functional status -Due to acute medical condition, hospitalization , CVA -High risk for fall needing SNF at discharge. 6) DM --Most recent A1C 9; recommend target 7.5-8 in this relatively frail geriatric patient --Avoid aggressive interventions that may increase risk of hypoglycemia --Home regimen includes insulin --Recommend outpatient endocrinology follow-up Subjective Chief Complaint: Altered mental status Geriatrics consulted for Encephalopathy and noncompliance HPI- The patient is known to me. 79 y.o. year-old female admitted to acute care from home for for altered mental status. Diagnosed with small acute infarct in right subinsular and left peritrigonal white matter with extensive chronic ischemic changes Interval History: Remains on general medical/surgical floor . and patient's daughter at bedside. Patient denies any complaints. Patient is still confused, forgetful and inattentive. Per family she had some mild cognitive impairment after she had a stroke 5 years back that they never had anymajor concerns about her memory. Patient knows that she is at [facility] and knows the year but does not know the date, day season . Seen by PT. Requires max assist x 2 for bed mobility, mod assist x 2 for transfers and functional mobility, and max assist x 2 for ADL's.. Ambulated : Pt able to take several steps to the right towards HOB with mod assist x 2. Recommending short term SNF for rehab. Review of Systems Constitutional: Positive for fatigue. Negative for activity change, appetite change and fever. HENT: Negative for hearing loss. Eyes: Negative for redness and visual disturbance. Respiratory: Negative. Negative for cough, chest tightness, shortness of breath and wheezing. Cardiovascular: Negative for chest pain, palpitations and leg swelling. Gastrointestinal: Negative for abdominal distention, abdominal pain, constipation and diarrhea. Genitourinary: Negative for dysuria, frequency and hematuria. Musculoskeletal: Negative for gait problem and neck pain. Skin: Negative for pallor and rash. Neurological: Positive for weakness. Negative for tremors, seizures, facial asymmetry, speech difficulty and numbness. Psychiatric/Behavioral: Positive for behavioral problems and confusion. Negative for hallucinationsand sleep disturbance. The patient is not nervous/anxious. Objective BP (!) 134/59 Pulse 93 Temp 96.8 F (36 C) (Temporal) Resp 14 Ht 5' 3 (1.6 m) Wt 217 lb (98.4 kg) SpO2 98% BMI 38.44 kg/m Intake/Output Summary (Last 24 hours) at 04/04/2020 1230 Last data filed at 04/04/2020 1118 Gross per 24 hour Intake 910 ml Output 975 ml Net -65 ml Patient Vitals for the past 96 hrs (Last 3 readings): Weight 04/01/202001 217 lb (98.4 kg) 04/01/201999 217 lb (98.4 kg) Current Facility-Administered Medications: lactated ringers infusion, , Intravenous, Continuous vitamin D (ERGOCALCIFEROL) capsule 50,000 Units, 50,000 Units, Oral, Weekly sodium chloride flush 0.9 % injection 10 mL, 10 mL, Intravenous, 2 times per day sodium chloride flush 0.9 % injection 10 mL, 10 mL, Intravenous, PRN acetaminophen (TYLENOL) tablet 650 mg, 650 mg, Oral, Q4H PRN OR acetaminophen (TYLENOL) suppository 650 mg, 650 mg, Rectal, Q4H PRN ondansetron (ZOFRAN) injection 4 mg, 4 mg, Intravenous, Q6H PRN atorvastatin (LIPITOR) tablet 40 mg, 40 mg, Oral, Nightly aspirin EC tablet 81 mg, 81 mg, Oral, Daily OR aspirin suppository 300 mg, 300 mg, Rectal, Daily labetalol (NORMODYNE;TRANDATE) injection 10 mg, 10 mg, Intravenous, Q10 Min PRN bisacodyl (DULCOLAX) suppository 10 mg, 10 mg, Rectal, Daily PRN enoxaparin (LOVENOX) injection 40 mg, 40 mg, Subcutaneous, Daily glucose (GLUTOSE) 40 % oral gel 15 g, 15 g, Oral, PRN dextrose 50 % IV solution, 12.5 g, Intravenous, PRN glucagon (rDNA) injection 1 mg, 1 mg, Intramuscular, PRN dextrose 5 % solution, 100 mL/hr, Intravenous, PRN perflutren lipid microspheres (DEFINITY) injection 1.65 mg, 1.5 mL, Intravenous, ONCE PRN sodium chloride flush 0.9 % injection 10 mL, 10 mL, Intravenous, PRN insulin lispro protamine & lispro (HUMALOG MIX) (75-25) 100 UNIT per ML injection vial SUSP 25 Units, 25 Units, Subcutaneous, BID WC insulin lispro (HUMALOG) injection vial 0-18 Units, 0-18 Units, Subcutaneous, TID WC insulin lispro (HUMALOG) injection vial 0-9 Units, 0-9 Units, Subcutaneous, Nightly LORazepam (ATIVAN) injection 0.5 mg, 0.5 mg, Intravenous, Q4H PRN cefTRIAXone sodium 1 g in dextrose 5 % 50 mL IVPB (add-vantage), 1 g, Intravenous, Q24H melatonin ER tablet 2 mg, 2 mg, Oral, Nightly QUEtiapine (SEROQUEL) tablet 12.5 mg, 12.5 mg, Oral, Nightly QUEtiapine (SEROQUEL) tablet 12.5 mg, 12.5 mg, Oral, Q6H PRN Physical Exam Vitals signs and nursing note reviewed. Exam conducted with a asbestos shingle roofer present. Constitutional: Appearance: Normal appearance. HENT: Head: Normocephalic and atraumatic. Right Ear: External ear normal. Left Ear: External ear normal. Nose: Nose normal. Mouth/Throat: Mouth: Mucous membranes are moist. Pharynx: Oropharynx is clear. Eyes: Extraocular Movements: Extraocular movements intact. Conjunctiva/sclera: Conjunctivae normal. Pupils: Pupils are equal, round, and reactive to light. Neck: Musculoskeletal: Normal range of motion. Cardiovascular: Rate and Rhythm: Normal rate and regular rhythm. Pulses: Normal pulses. Heart sounds: Normal heart sounds. Pulmonary: Effort: Pulmonary effort is normal. Breath sounds: Normal breath sounds. No wheezing. Abdominal: General: Abdomen is flat. Bowel sounds are normal. There is no distension. Palpations: Abdomen is soft. Tenderness: There is no abdominal tenderness. Musculoskeletal: Normal range of motion. General: No swelling or tenderness. Right lower leg: No edema. Left lower leg: No edema. Skin: General: Skin is warm and dry. Neurological: Mental Status: She is alert. She is disoriented. Cranial Nerves: No cranial nerve deficit. Sensory: No sensory deficit. Motor: Weakness present. Gait: Gait abnormal. Deep Tendon Reflexes: Reflexes normal. Comments: Patient is oriented to place and person but not to time moving all 4 extremities Tangential and inattentive Psychiatric: Comments: Anxious Labs and Imaging: Recent Results (from the past 24 hour(s)) POCT Glucose Collection Time: 04/03/20 5:24 PM Result Value Ref Range POC Glucose 198 (H) 70 - 100 mg/dL Magnesium Collection Time: 04/04/20 5:28 AM Result Value Ref Range Magnesium 2.0 1.6 - 2.3 mg/dL Phosphorus Collection Time: 04/04/20 5:28 AM Result Value Ref Range Phosphorus 4.1 2.5 - 4.5 mg/dL Comprehensive Metabolic Panel w/ Reflex to MG Collection Time: 04/04/20 5:28 AM Result Value Ref Range Sodium 136 135 - 145 mmol/L Potassium 4.0 3.5 - 5.1 mmol/L Chloride 104 98 - 107 mmol/L CO2 24 22 - 30 mmol/L Anion Gap 8 NA Glucose 196 (H) 70 - 100 mg/dL BUN 42 (H) 7 - 20 mg/dL CREATININE 1.29 (H) 0.52 - 1.25 mg/dL eGFR 46.0 (A) >60 mL/min EGFR IF NonAfrican Citizen Of [place] 39.7 (A) >60 mL/min Calcium 9.4 8.4 - 10.4 mg/dL Albumin,Serum 3.4 (L) 3.5 - 5.0 g/dL Total Protein 6.2 (L) 6.3 - 8.2 g/dL Total Bilirubin 0.4 0.2 - 1.3 mg/dL Alkaline Phosphatase 172 (H) 38 - 126 U/L ALT 13 0 - 34 U/L AST 31 15 - 46 U/L CBC Collection Time: 04/04/20 5:28 AM Result Value Ref Range WBC 6.3 3.6 - 10.7 10*3/uL RBC 4.20 3.80 - 5.20 10*6/uL Hemoglobin 12.3 11.7 - 16.0 g/dL Hematocrit 35.3 35.0 - 47.0 % MCV 84.0 79.0 - 98.0 fL MCH 29.2 26.0 - 34.0 pg MCHC 34.7 32.0 - 36.0 % RDW 14.0 11.5 - 14.5 % Platelets 124 (L) 140 - 440 10*3/uL MPV 9.9 7.4 - 10.4 fL Troponin Collection Time: 04/04/20 5:28 AM Result Value Ref Range Troponin I 0.113 (H) 0.000 - 0.034 ng/mL POCT Glucose Collection Time: 04/04/20 10:18 AM Result Value Ref Range POC Glucose 234 (H) 70 - 100 mg/dL POCT Glucose Collection Time: 04/04/20 11:37 AM Result Value Ref Range POC Glucose 323 (H) 70 - 100 mg/dL Lab Results Component Value Date TSH 0.699 04/02/2020 Lab Results Component Value Date [id number] 403 04/02/2020 Lab Results Component Value Date VITD25 <13 (L) 04/03/2020 Reviewed: active problem list, medication list, notes from last encounter, lab results, imaging Follow-up: will follow with you * Gloria Barrera, OT - 04/04/2020 11:23 AM EDT Occupational Therapy Occupational Therapy Initial Assessment Date: 04/04/2020 Patient Name: Maryellen Eisenberg : 1940 Date of Service: 04/04/2020 Discharge Recommendations: Subacute/Half-Way Facility Assessment Performance deficits / Impairments: Decreased functional mobility ;Decreased safe awareness;Decreased balance;Decreased ADL status;Decreased endurance;Decreased high-level IADLs;Decreased strength Assessment: Pt presents with the above deficits and requires max assist x 2 for bed mobility, mod assist x 2 for transfers and functional mobility, and max assist x 2 for ADL's. Pt is a fall risk andis unsafe to return home. Pt would benefit from continued therapies to maximize potential. Recommend SNF level therapies at discharge. Prognosis: Fair Decision Making: Medium Complexity REQUIRES OT FOLLOW UP: Yes Activity Tolerance Activity Tolerance: Patient limited by fatigue;Patient limited by pain Safety Devices Safety Devices in place: Yes Type of devices: All fall risk precautions in place;Bed alarm in place;Call light within reach;Nurse notified;Left in bed;Patient at risk for falls;Gait belt((+)AvaSys) Patient Diagnosis(es): The primary encounter diagnosis was Stroke-like symptoms. Diagnoses of Uncontrolled hypertension and Confusion were also pertinent to this visit. 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 has a past surgical history that includes Cholecystectomy (1984); Hysterectomy, total abdominal (N/A, 1984); Colonoscopy (2006); Carotid endarterectomy (Right, 2007); Hip fracture surgery (Left, 10/20/2015); and Cataract removal (Bilateral, 2011). Restrictions Restrictions/Precautions Restrictions/Precautions: Fall Risk((+)Bed alarm (+)Teresa Sys) Required Braces or Orthoses?: No Subjective General Chart Reviewed: Yes Patient assessed for rehabilitation services?: Yes Family / Caregiver Present: No Diagnosis: Stroke-like symptoms (+)Small acute infarcts Right subinsular and left peritrigonal white matter. Subjective Subjective: Pt in bed, sleeping. OK per RN to work with pt. Pt agreeable to OT. (+)Teresa Sys General Comment Comments: Pt presents with c/o confusion (odd behavior and speech at home). Patient Currently in Pain: Yes(Back pain but did not quantify.) Social/Functional History Social/Functional History Lives With: () Type of Home: House Home Layout: One level Home Access: Stairs to enter without rails Entrance Stairs - Number of Steps: 1 Bathroom Shower/Tub: Tub/Shower unit Bathroom Toilet: Standard Bathroom Equipment: Toilet raiser, Grab bars in shower, Shower chair Home Equipment: Rolling walker Receives Help From: Family ADL Assistance: Independent(Son states pt does not shower regularly and needs assistance in his opionion but states she would disagree) Homemaking Assistance: Needs assistance Homemaking Responsibilities: Yes(Son and Dtr in- law assist with cooking, cleaning, laundry as needed) Ambulation Assistance: Independent(with walker) Transfer Assistance: Independent Active Service Architect: No Patient's Service Architect Info: spouse/ kids Mode of Transportation: Car Education: n/a Occupation: Retired Type of occupation: n/a Leisure & Hobbies: n/a IADL Comments: Pt fairly independent but does require some assistance per family Additional Comments: Indep with ADL's. Assist with IADL's. Objective Orientation Overall Orientation Status: (Ox1) Balance Sitting Balance: Stand by assistance(fair + Static sitting balance at EOB with SBA.) Standing Balance: (fair -) Standing Balance Comment: Static standing balance varied between min assist x 2 - mod assist x 2 with UE support. Functional Mobility Functional Mobility Comments: Pt able to take several steps to the right towards HOB with mod assist x 2 and max verbal cues for sequencing and safety awareness. ADL LE Dressing: (Max assist with bilateral socks.) Tone RUE RUE Tone: Normotonic Tone LUE LUE Tone: Normotonic Bed mobility Supine to Sit: Maximum assistance;2 Person assistance Sit to Supine: Moderate assistance;2 Person assistance Scooting: Maximal assistance;2 Person assistance Comment: Verbal cues for sequencing and hand placement. Use of drawsheet with transfers. Boost to HOB with max assist x 2 with use of draw sheet. Transfers Stand Step Transfers: Moderate assistance;2 Person assistance Sit to stand: Moderate assistance;2 Person assistance Stand to sit: Moderate assistance;2 Person assistance Transfer Comments: Verbal cues for hand placement, sequencing, and safety awareness. Increased timewith transfers. Cognition Arousal/Alertness: Delayed responses to stimuli Following Commands: Follows one step commands with increased time;Follows one step commands with repetition Attention Span: Difficulty attending to directions Memory: Decreased recall of biographical Information;Decreased recall of precautions;Decreased recall of recent events;Decreased short term memory Insights: Decreased awareness of deficits Initiation: Requires cues for all Sequencing: Requires cues for all LUE AROM (degrees) LUE AROM : WFL RUE AROM (degrees) RUE AROM : WFL LUE Strength Gross LUE Strength: (4/5) RUE Strength Gross RUE Strength: (shoulder flex~4-/5, elbow~4/5) Plan Plan Times per week: 3-5x/wk Plan weeks: 2 weeks Current Treatment Recommendations: Strengthening, Endurance Training, Neuromuscular Re-education, Patient/Caregiver Education & Training, Cognitive Reorientation, Self-Care / ADL, Balance Training, Home Management Training, Cognitive/Perceptual Training, Functional Mobility Training, Safety Education & Training, Positioning OutComes Score [facility] Daily Activity Inpatient How much help for putting on and taking off regular lower body clothing?: Total How much help for Bathing?: A Lot How much help for Toileting?: Total How much help for putting on and taking off regular upper body clothing?: A Little How much help for taking care of personal grooming?: A Little How much help for eating meals?: A Little [facility] Inpatient Daily Activity Raw Score: 13 [facility] Inpatient ADL T-Scale Score : 32.03 ADL Inpatient CMS 0-100% Score: 63.03 ADL Inpatient CMS G-Code Modifier : CL AM-PAC Score AM-P[facility] Inpatient Daily Activity Raw Score: 13 (04/04/20 112) AM-PAC Inpatient ADL T-Scale Score : 32.03 (04/04/20 112) ADL Inpatient CMS 0-100% Score: 63.03 (04/04/20 1123) ADL Inpatient CMS G-Code Modifier : CL (04/04/20 1123) Goals Short term goals Time Frame for Short term goals: 2 weeks Short term goal 1: Static sitting balance at EOB during bilateral UE task x 5-8 mins with supervision. Short term goal 2: BSC transfer with min assist x 1. Short term goal 3: LE dressing with/without assist of AE prn with min assist. Short term goal 4: Static standing balance during unilateral UE task x 3-5 mins with supervision. Patient Goals Patient goals : None stated. Therapy Time Individual Concurrent Group Co-treatment Time In 947 Time Out 1012 Minutes 24 Timed Code Treatment Minutes: 15 Minutes(funct act - 1) Goals and/or treatment plan was established in collaboration with patient/family/other representatives. Patient's Occupational Therapy Plan of Care supervision is transferred to [facility] Occupational Therapist. This provider wore an N95, face shield, and gloves for the duration of the session with this pt. 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) Carotid artery occlusion with infarction (HCC) History of TIA (transient ischemic attack) OAB (overactive bladder) Left homonymous hemianopsia CVA, old, homonymous hemianopsia Lumbar disc disease with radiculopathy GERD with stricture Ichthyosis Asymptomatic stenosis of left carotid artery Morbidly obese (HCC) Stroke-like symptoms Acute encephalopathy Hyperglycemia Noncompliance Elevated troponin Hyponatremia AVE (acute kidney injury) (HCC) Allergies: No Known Allergies Onset Date: 04-01-2020 Oxygen Level: RA Current Diet Level: Puree/mildly thick liquids Compensatory Techniques []Chin tuck [x]Small bolus []Alternate bites/ sips []No straws []Liquids by teaspoon only []Swallow x 2 with each bolus []Alternate lemon ice between each bolus [x]Position patient upright [x]assist- impulsive S: Pt more alert and interactive this date- pleasantly confused. O: trial soft solids and thin liquids for potential diet upgrade A: Pt reports upper denture is at home, but occasionally eats without them. Pt given small piece ofgraham cracker moistened in pureed peaches- mastication is prolonged, min lingual residues. There is continued coughing noted again this date with trials of thin water via cup and straw. Pt tends to continuously drink despite cues for small, single sips. [] Goal met [x] Progressing as expected [] Progressing slower than expected [] Medical status inhibits participation [] Goals not addressed this session [] Goals revised this session [] Unable to show any progress towards functional goals [] Progress towards functional goal is gradual / fair P: Can try upgrade to minced and moist diet. Continue mildly thick liquids. Speech therapy to follow. End time: 1105 Treatment time: 15 minutes An N95 mask, a full face shield and gloves were worn throughout this session. * Yakelin Samano V., PT - 04/04/2020 10:53 AM EDT Physical Therapy Facility/Department: [facility] Initial Assessment NAME: Maryellen Eisenberg : 1940 Date of Service: 04/04/2020 Discharge Recommendations: (facility based therapy) Assessment Body structures, Functions, Activity limitations: Decreased functional mobility ;Decreased ADL status;Decreased strength;Decreased balance;Decreased posture;Decreased safe awareness Assessment: pt admitted with stroke like symptoms. pt max assist of 2 for supine <-> sit, modassist of 2 for transfers, mod assist for taking steps to HOB. static stance mod to min assist of 2. recommend facility based therapy. Treatment Diagnosis: stroke like symptoms Decision Making: Low Complexity REQUIRES PT FOLLOW UP: Yes Patient Diagnosis(es): The primary encounter diagnosis was Stroke-like symptoms. Diagnoses of Uncontrolled hypertension and Confusion were also pertinent to this visit. 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 has a past surgical history that includes Cholecystectomy (1984); Hysterectomy, total abdominal (N/A, 1984); Colonoscopy (2006); Carotid endarterectomy (Right, 2007); Hip fracture surgery (Left, 10/20/2015); and Cataract removal (Bilateral, 2011). 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 increased time to arouse. just returned from test. education and encouragement provided for therapy. RN present through most of session. Pain Screening Patient Currently in Pain: (reported some back pain) Orientation Orientation Orientation Level: Oriented to person;Disoriented to situation;Disoriented to place Social/Functional History Social/Functional History Lives With: Spouse Type of Home: House Home Layout: One level Home Access: Stairs to enter without rails Entrance Stairs - Number of Steps: 1 Bathroom Shower/Tub: Tub/Shower unit Bathroom Toilet: Standard Bathroom Equipment: Toilet raiser, Grab bars in shower, Shower chair Bathroom Accessibility: Accessible Home Equipment: Rolling walker(glucometer) Receives Help From: Family ADL Assistance: Independent(Son states pt does not shower regularly and needs assistance in his opionion but states she would disagree) Homemaking Assistance: Needs assistance Homemaking Responsibilities: Yes(Son and Dtr in- law assist with cooking, cleaning, laundry as needed) Ambulation Assistance: Independent(with walker) Transfer Assistance: Independent Active Service Architect: No Patient's Service Architect Info: spouse/ kids Mode of Transportation: Car Education: n/a Occupation: Retired Type of occupation: n/a Leisure & Hobbies: n/a IADL Comments: Pt fairly independent but does require some assistance per family Additional Comments: DCP - Anticipate snf/IP pending therapy evals Cognition Cognition Arousal/Alertness: Delayed responses to stimuli Following Commands: Follows one step commands with increased time;Follows one step commands with repetition Attention Span: Difficulty attending to directions Memory: Decreased recall of biographical Information;Decreased recall of precautions;Decreased recall of recent events;Decreased short term memory Initiation: Requires cues for all Sequencing: Requires cues for all Objective AROM RLE (degrees) RLE AROM: WFL RLE General AROM: grossly AROM LLE (degrees) LLE AROM : WFL LLE General AROM: grossly Strength Other Other: observed at least 2/5 bilat LEs through functional mobility. Motor Control Gross Motor?: WFL Bed mobility Supine to Sit: 2 Person assistance;Maximum assistance Sit to Supine: 2 Person assistance;Moderate assistance Scooting: Maximal assistance;2 Person assistance Transfers Sit to Stand: Moderate Assistance;2 Person Assistance Stand to sit: Moderate Assistance;2 Person Assistance Comment: times 3 reps Ambulation Ambulation?: Yes Ambulation 1 Surface: level tile Device: No Device Assistance: Moderate assistance;2 Person assistance Quality of Gait: double stance time increased. max verbal cues to stay on task Gait Deviations: Slow Roslyn;Decreased step length;Decreased step height Distance: 4ft side steps to HOB Balance Sitting - Static: Good;- Standing - Static: Poor Standing - Dynamic: Poor Comments: sat on EOB with supervision once positioned at the EOB. initially requiring max assist fo1-2 to maintain sitting balance. mod assist of 2 to min assist of 2 for static stance. mod assist of 2 for taking steps. Plan Plan Times per week: 3-5x Plan weeks: 2 weeks Current Treatment Recommendations: Strengthening, Balance Training, Functional Mobility Training, Transfer Training, ADL/Self-care Training, Stair training, Gait Training, Equipment Evaluation, Education, & procurement, Patient/Caregiver Education & Training, Safety Education & Training, Home Exercise Program Safety Devices Type of devices: Call light within reach, Bed alarm in place, Left in bed, Gait belt, Patient at risk for falls, Nurse notified; 2 skilled therapist for patient and staff safety and safe assessment of functional mobility. AM-PAC Score AM-PAC Inpatient Mobility Raw Score : 6 (04/04/201042) AM-PAC Inpatient T-Scale Score : 23.55 (04/04/201042) Mobility Inpatient CMS 0-100% Score: 100 (04/04/201042) Mobility Inpatient CMS G-Code Modifier : CN (04/04/201042) Goals Short term goals Time Frame for Short term goals: 2 weeks Short term goal 1: indep supine <-> sit Short term goal 2: indep sit <-> stand Short term goal 3: modif indep ambulate 50ft with/without device Short term goal 4: ascend/descend entry steps modif indep Patient Goals Patient goals : to go home Therapy Time Individual Concurrent Group Co-treatment Time In 947 Time Out 1012 Minutes 24 Timed Code Treatment Minutes: 8 Minutes(FA) Patient's Physical Therapy Plan of Care supervision is transferred to [facility] Rehab Department Physical Therapist. Goals and/or treatment plan was established in collaboration with patient/family/other representatives. This physical therapist wore N95 mask, googles/mask & gloves during therapy session. Yakelin Samano PT, DPT * Jovon Samaniego MD - 04/04/2020 9:08 AM EDT [facility] Progress Note Maryellen Eisenberg : 1940(79 y.o.) Date: 04/04/20 Subjective: HPI The patient complains of : altered behavior 79yo WF with PMHx HTN, AIDAN (s/p R-CEA 2018), R-occipital stroke (2014) w/left- sided residual deficits who presented to [facility] ER from home. Brought in by family who found her with odd behavior and speech. Questionable worsening of motor function on left-side. Presented as stroke team, initial NIH 4.CT Head, CTA H&N negative for acute change (known mild carotid disease with R-FEED MIXER territory infa rct). Patient required restraints while in ER due to agitation, which were continued on general medical floor. Seen by neurology and geriatrics. MRI showing small acute infarcts R-subinsular and left-peritrigonal white matter for which she was started on plavix. Started on IV atbx for UTI. Labs and vitals reviewed. Afebrile. HR 87, BP 138/68/55. Not requiring oxygen. SCr 1.97 --> 1.29. glucose improved in upper 100s. Troponin downtrended. AST resolved. This morning, patient's and daughter at bedside. Patient alert, talkative, cooperative, sitting upright in bed after eating lunch. Baseline neuro deficits - confirmed by daughter. Long discussion with family - would like to take patient home (she wants to go home) but understandthe amount of assistance required may be more than what they can offer. Denies chest pain or SOB. Denies fever or chills. Scheduled Meds: vitamin D 50,000 Units Oral Weekly sodium chloride flush 10 mL Intravenous 2 times per day atorvastatin 40 mg Oral Nightly aspirin 81 mg Oral Daily Or aspirin 300 mg Rectal Daily enoxaparin 40 mg Subcutaneous Daily insulin lispro prot & lispro 25 Units Subcutaneous BID insulin lispro 0-18 Units Subcutaneous TID WC insulin lispro 0-9 Units Subcutaneous Nightly cefTRIAXone (ROCEPHIN) IV 1 g Intravenous Q24H melatonin 2 mg Oral Nightly QUEtiapine 12.5 mg Oral Nightly Continuous Infusions: lactated ringers 75 mL/hr at 04/03/20 0915 dextrose PRN Meds:sodium chloride flush, acetaminophen OR acetaminophen, ondansetron, labetalol, bisacodyl, glucose, dextrose, glucagon (rDNA), dextrose, perflutren lipid microspheres, sodium chloride flush, LORazepam, QUEtiapine Review of Systems Unable to perform ROS: Mental status change Interval Pertinent History: Social History Tobacco Use Smoking status: Never Smoker Smokeless tobacco: Never Used Substance Use Topics Alcohol use: No Alcohol/week: 0.0 standard drinks Frequency: Never Objective: Patient Vitals for the past 24 hrs: BP Temp Temp src Pulse Resp SpO2 Height 04/04/20 0725 138/68 97.2 F (36.2 C) Temporal 87 18 98 % 04/03/20 2000 (!) 153/66 96.7 F (35.9 C) Temporal 115 18 98 % 04/03/20 1518 (!) 156/76 97.1 F (36.2 C) Temporal 103 18 100 % 04/03/20 1454 5' 3 (1.6 m) 04/03/20 1220 116/64 97.1 F (36.2 C) Temporal 90 18 95 % Average, Min, and Max for last 24 hours Vitals: TEMPERATURE: Temp Av F (36.1 C) Min: 96.7 F (35.9 C) Max: 97.2 F (36.2 C) RESPIRATIONS RANGE: Resp Av Min: 18 Max: 18 PULSE RANGE: Pulse Av.8 Min: 87 Max: 115 BLOOD PRESSURE RANGE: Systolic (24hrs), Av , Min:116 , Max:156 ; Diastolic (24hrs), Av, Min:64, Max:76 PULSE OXIMETRY RANGE: SpO2 Av.8 % Min: 95 % Max: 100 % I/O last 3 completed shifts: In: 910 [P.O.:360; I.V.:500; IV Piggyback:50] Out: 675 [Urine:675] Physical Exam Vitals signs and nursing note reviewed. Constitutional: Appearance: She is obese. She is not ill-appearing or diaphoretic. Comments: Sitting upright, appears comfortable, nontoxic, NAD, not dyspneic HENT: Head: Normocephalic and atraumatic. Cardiovascular: Rate and Rhythm: Normal rate and regular rhythm. Pulmonary: Breath sounds: No wheezing. Abdominal: General: There is no distension. Palpations: Abdomen is soft. There is no mass. Musculoskeletal: Right lower leg: No edema. Left lower leg: No edema. Skin: General: Skin is warm and dry. Comments: Very dry skin noted Neurological: Comments: Moving all 4 extremities, residual left-sided weakness at baseline Lab Results Component Value Date WBC 6.3 04/04/2020 HGB 12.3 04/04/2020 HCT 35.3 04/04/2020 MCV 84.0 04/04/2020 PLT 124 (L) 04/04/2020 Lab Results Component Value Date NA 136 04/04/2020 K 4.0 04/04/2020 CL 104 04/04/2020 CO2 24 04/04/2020 BUN 42 04/04/2020 CREATININE 1.29 04/04/2020 GLUCOSE 196 04/04/2020 CALCIUM 9.4 04/04/2020 Lab Results Component Value Date LABA1C 9.0 (H) 04/02/2020 MRI Brain 04/02/20 IMPRESSION: 1. Small acute infarcts right subinsular and left peritrigonal white matter. 2. Extensive chronic ischemic changes. Additional results of the last 24 hours have been reviewed. Assessment and Plan: Principal Problem: Acute encephalopathy Active Problems: Essential hypertension 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 * Assessment/Plan: # Acute encephalopathy, toxic v metabolic - in setting noncompliance, accelerated HTN, hyperglycemia and prior stroke - required 5mg Haldol and 1mg versed at admission - stroke neuro consulted - MRI (+) small acute infarcts - echo WNL - on aspirin, statin, PT/OT, dysphagia diet - infectious workup: oconnell culture, procal, RVP - aggressive BGT/insulin adjustment - meds/OARRS reviewed - last filled tramadol in November 2019 # Small acute infarcts - noted on MRI 04/02 - neuro on-board - started on plavix, CUS p # UTI - change ceftriaxone to augmentin x1 day (lost IV) # AVE, suspect pre-renal in setting of hypotension 04/03, now improved - meds reviewed, non-nephrotox - check urine lytes, renal ultrasound - FeUrea 4.3% (pre-renal disease) --> continue IVF - echo WNL, no RWMA # Elevated troponin - downtrended - in setting of agitation, accelerated HTN - patient asymptomatic cardiac-metzger - suspect demand but check tele, EKG and echo - EKG appears unchanged - echo WNL, no RWMA # T2DM, insulin-requiring, uncontrolled # Hyperglycemia - no insulin given overnight/this AM - in setting of noncompliance - A1c 9.0 - home meds: insulin 70/30: 54units qAM, 44 units qHS - restart at 25units (of 75/25 mix) BID WC # Hypertension, accelerated - suspect due to noncompliance - home meds: diltiazem, lisinopril, HCTZ - use IV while unable to take oral # Hyponatremia, mild # Elevated alkaline phosphatase # Hx AIDAN, s/p CEA # Hx stroke DVTProphylaxis: lovenox 40 q 24hr - creatinine clearance >30 Disposition:await test results, await showroom consultant recommendations and await clinical improvement Patient wanting to go home but family aware of significant amount of assistance required --> SW to discuss I spent over 51% of total time providing counseling or incoordination of care: 35 minutes patient and family updated, I personally examined the patient and I personally reviewed chart, data, labs radiology reports D/w patient's and daughter (at bedside) 6AM-6PM please page: 6PM-6AM please page: [facility] Internal Medicine * Izabela Pond DO - 04/03/2020 4:51 PM EDT Neurology Progress Note Patient: Maryellen Eisenberg Unit[facility]Bed:[facility]/[id number] Date of : 1940 Acct: [id number] Admit date: 04/01/2020 No chief complaint on file. Patient Seen, Chart, Physician notes, Labs, Radiology studies reviewed. Subjective: Patient's chief complaint is that she wants to go home. [id number] notes intermittent anger and agitation today, though apparently that's not unusual for her. She did have the perception that the TV was moving to the left. Not clear if she is confused now. Past, Family, Social History unchanged from admission. Diet: DIET CARB CONTROL; Low Sodium (2 GM); Dysphagia Pureed; Mildly Thick ([place]) Dietary Nutrition Supplements: Frozen Oral Supplement Medications: Scheduled Meds: sodium chloride flush 10 mL Intravenous 2 times per day atorvastatin 40 mg Oral Nightly aspirin 81 mg Oral Daily Or aspirin 300 mg Rectal Daily enoxaparin 40 mg Subcutaneous Daily insulin lispro prot & lispro 25 Units Subcutaneous BID WC insulin lispro 0-18 Units Subcutaneous TID WC insulin lispro 0-9 Units Subcutaneous Nightly cefTRIAXone (ROCEPHIN) IV 1 g Intravenous Q24H melatonin 2 mg Oral Nightly QUEtiapine 12.5 mg Oral Nightly Continuous Infusions: lactated ringers 75 mL/hr at 04/03/20 0915 dextrose PRN Meds:sodium chloride flush, acetaminophen OR acetaminophen, ondansetron, labetalol, bisacodyl, glucose, dextrose, glucagon (rDNA), dextrose, perflutren lipid microspheres, sodium chloride flush, LORazepam, QUEtiapine Objective: Vitals: BP (!) 156/76 Pulse 103 Temp 97.1 F (36.2 C) (Temporal) Resp 18 Ht 5' 3 (1.6 m) Wt 217 lb (98.4 kg) SpO2 100% BMI 38.44 kg/m Physical Exam: Irritable and agitated; wants to be discharged. Only variably cooperative; won't answer orientation questions, etc. Moves all limbs well. Speaking in sentences which, for the most part, are appropriate to situation. No aphasia. Heart RRR. Pupils equal. Eyes move conjugately. Face symmetric. 24 hour intake/output: Intake/Output Summary (Last 24 hours) at 04/03/2020 1651 Last data filed at 04/03/2020 1340 Gross per 24 hour Intake 120 ml Output 300 ml Net -180 ml Last 3 weights: Wt Readings from Last 3 Encounters: 04/01/20 217 lb (98.4 kg) 09/05/19 213 lb (96.6 kg) 03/01/19 228 lb (103.4 kg) CBC: Recent Labs 04/01/20200604/02/2012 04/03/20 0237 WBC 6.4 10.1 8.7 HGB 13.9 13.7 12.3 PLT 154 165 129* BMP: Recent Labs 04/01/20200804/02/2012 04/03/20 0238 NA 137 131* 132* K 3.8 4.7 4.7 CL -- 97* 102 CO2 -- 21* 21* BUN -- 25* 42* CREATININE 1.10 0.90 1.97* GLUCOSE -- 400* 184* Calcium: Recent Labs 04/03/20 0238 CALCIUM 9.4 Magnesium: Recent Labs 04/03/20 0238 MG 2.0 Glucose: Recent Labs 04/02/20 2125 04/03/20 0823 04/03/20 1137 POCGLU 166* 212* 174* HgbA1C: Recent Labs 04/02/20 0512 LABA1C 9.0* Lipids: Recent Labs 04/02/20 0512 CHOL 151 TRIG 112 HDL 66* LDL 63 Radiology reports as per the Radiologist Radiology: Cta Head Neck W Wo Contrast Result Date: 04/01/2020 Patient Name: MARYELLEN EISENBERG ---CT--- Exam Date/Time 04/01/2020 20:11:25 EDT Exam CTA Head/Neck w/ + w/o contrast Ordering Physician JI OSMAN CPT4 Codes Q9967 (CT ISOVUE [id number]/[id number]), 17743 (), 77428 () Reason For Exam confusion Report CTA HEAD: INDICATION: Confusion, left-sided weakness. COMPARISON:None. Contrast: 75 cc of Isovue-370. CT scan of the brain was performed without contrast, then CT angiographic studies of the intracranial vessels were performed following the acquisition of high resolution helical CT dated during bolus contrast infusion. The data set was then post process on a separate PACS workstation by myself, with reconstructed 3D shaded surface display and MIP/MPR CT angiographic renderings of the intracranial vessels. CT angiographic study demonstrates patent flow in theright and left internal carotid arteries. The carotid siphons demonstrate atherosclerotic changes without significant stenosis. There is filling of the right and left anterior and middle cerebral circulation vessels. There is no significant intracranial stenosis. The vertebral arteries are patent. There are no calcific atherosclerotic changes in the vertebrobasilar system, with no critical stenosis. The basilar artery is widely patent. The vertebrobasilar branch vessels are all patent, with no e vidence of critical stenosis. There is no evidence of aneurysm or vascular malformation. CT PERFUSION STUDIES: CT perfusion studies are limited due to motion artifact. The cerebral blood volume and blood flow are normal. The mean transit time maps demonstrate no gross abnormality. CTA CAROTID ARTERIES: CT angiographic studies of the extracranial vessels was performed following the acquisition of high resolution helical CT data during bolus contrast infusion. The data set was then post process on a separate PACS workstation, with reconstructed 3D shaded surface CT angiographic renderings of the extracranial vessels. There is patent flow in the right and left common carotid arteries. There ispatent flow in the right and left cervical vertebral arteries. The right carotid bifurcation demonstrates atherosclerotic calcifications with approximately 20% stenosis. There is no ulceration. Thereis patent flow in the upper cervical right internal carotid artery. The left carotid bifurcation dem onstrates dense atherosclerotic calcification with approximately 50% stenosis. There is no ulceration. There is patent flow in the upper cervical left internal carotid artery. There is no evidence ofdissection. IMPRESSION: CTA of the head demonstrates acute intracranial process. No intracranial stenosis. Remote right FEED MIXER infarct and chronic ischemic changes. The CT perfusion is limited by motion artifact but negative. CTA of the carotid arteries demonstrates 50% left carotid bifurcation stenosis. 20% right carotid bifurcation stenosis. The cervical vertebral arteries are patent. There is no evidence of dissection or occlusion. Reference: Measurement of carotid stenosis is a ratio based on conventional angiographic data from the NASCET trials with the smallest caliber of the internal carotid as the numerator and normal post-stenotic internal carotid caliber as denominator. Report Dictated on --- Final --- Dictated: 04/01/2020 8:27 pm Dictating Physician: DO DE LA CRUZ ALFRED Signed Date and Time: 04/01/2020 8:43 pm Signed by: DO DE LA CRUZ ALFRED Transcribed Date and Time: 04/01/2020 8:27 Mri Brain Without Contrast ( Review Imaging Obtained In Last 2 Yrs To Determine Indication) Result Date: 04/02/2020 Patient Name: MARYELLEN EISENBERG ---MRI--- Exam Date/Time 04/02/2020 19:31:31 EDT Exam MRI Brain w/o Contrast Ordering Physician MD JULIAN BRANAVAN CPT4 Codes 74364 () Reason For Exam ischemic stroke Report MRI OF THE BRAIN WITHOUT GADOLINIUM CLINICAL INDICATION: ischemic stroke TECHNIQUE: Routine MRI of the brain without gadolinium. COMPARISON: 07/11/2008 FINDINGS: Extensive motion artifact despite medication on axial gradient echo and coronal T2 images. There are two acute infarcts seen on diffusion-weighted imaging. One is located in the right subinsular region measuring about 6.4 x 6.4 mm. Second is in the peritrigonal white matter on the left. Maximum cross-sectional size 4.8 x 5.7 mm. There is a chronic right FEED MIXER infarct. No hydrocephalus. No effacement of the basal cisterns. There are patchy and confluent areas of T2 bright signal in the periventricular and subcortical white matter, which are nonspecific, but may r elate to chronic small vessel ischemic changes. No hemorrhage, mass effect, or midline shift. No pathologic extra-axial fluid collection identified. Tiny chronic cerebellar infarcts bilaterally. Major intracranial flow voids are visualized. IMPRESSION: 1. Small acute infarcts right subinsular and left peritrigonal white matter. 2. Extensive chronic ischemic changes. Critical Test Results: Resultswere conveyed to Dr. Julian via [employer] messaging at 7:47 PM on 04/02/2020. Report Dictated on --- Final --- Dictated: 04/02/2020 7:39 pm Dictating Physician: MD LLANES JOHN R Signed Date and Time: 04/02/2020 7:49 pm Signed by: MD LLANES JOHN R Transcribed Date and Time: 04/02/2020 7:39 MRI images reviewed - 2 very small strokes, I think look somewhat subacute. On left periventricularand extremely small; on right it's medial to the Sylvian fissure. Echo suboptimal, but no embolic source seen Assessment: Principal Problem: Acute encephalopathy Active Problems: Essential hypertension 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 * 1) 2 very small recent strokes on MRI 2) Episode(s) of confusion. I don't think these strokes would be likely to be the reason for confusion, due to size and location, but cannot completely exclude this possibility. DDx still includes seizure. Plan: 1) Will add Plavix to her aspirin for 3 weeks and get a carotid ultrasound. 2) Reconsider possibility of seizures for recurrent episodes of abrupt onset confusion or unresponsiveness. Discussed with patient's [id number] Neurology * Shameka Lopez, MS, RD, LD - 04/03/2020 3:43 PM EDT Comprehensive Nutrition Assessment Type and Reason for Visit: Initial Nutrition Recommendations/Plan: 1. Suggest liberalize diet to pureed/nectar without cardiac and carb control restrictions to promote po intake. 2. Per MNT provide Magic Cup (290 kim/.9 grams protein) with dinner for patient to trial 3. Suggest document % meals consumed in nursing flow sheets 4. RD continue to monitor overall nutritional status and follow up weekly Nutrition Assessment: Patient presented to [facility] on 04/01/2020 from home with acute symptoms of AMS. LNW around 6:30. Patient, per family, was found to be exiting her house and was immediately found to have AMS acutely. AMS consisted of odd behavior, strange speech, and bizarre gross movements. Familyand EMS has conflicting views on whether patient did collapse or not. Per family, the patient additionally had acute on chronic worsening of her left facial sensation and motor movement as well as acute on chronic worsening of her motor function in upper extremity. With acute decline, family calledEMS with concern of stroke. Patient receiving nursing care during RD visit. Notified room service to provide gravy with meals if patient requests despite sodium restriction. Malnutrition Assessment: Malnutrition Status: Insufficient data Context: Acute Illness Estimated Daily Nutrient Needs: Energy (kcal): 4876-1970 (25-30); Weight Used for Energy Requirements: [place] Protein (g): 52-62 (1.0-1.2); Weight Used for Protein Requirements: [place] Fluid (ml/day): per MD; Nutrition Related Findings: +bowel sounds; generalized non-pitting edema; - I&O; [place] 13; HgbA1c 9.0%; BG 184/212/174; Vitamin D <13.0 Wounds: None Anthropometric Measures: Height: 5' 3 (160 cm) Admission Body Weight: 217 lb (98.4 kg)(life scale) Usual Body Weight: 213 lb (96.6 kg)((09/05/19)) [place] Body Weight: 115 lbs; BMI Categories: Obese Class 2 (BMI 35.0 -39.9) Nutrition Diagnosis: Predicted inadequate energy intake related to swallowing difficulty as evidenced by intake 26-50% Nutrition Interventions: Food and/or Nutrient Delivery: Continue Current Diet, Start Oral Nutrition Supplement Coordination of Nutrition Care: Continued Inpatient Monitoring Goals: Patient consume >50% meals and ONS Nutrition Monitoring and Evaluation: Food/Nutrient Intake Outcomes: Food and Nutrient Intake, Supplement Intake Physical Signs/Symptoms Outcomes: Biochemical Data, Chewing or Swallowing, GI Status, Fluid Status or Edema, Hemodynamic Status, Weight, Skin Contact: pager [phone] * Jeffrey Bautista MD - 04/03/2020 1:46 PM EDT [facility] Geriatric Medicine Inpatient Consult Service Admission Date: 04/01/2020 Assessment Principal Problem: Acute encephalopathy Active Problems: Essential hypertension 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 * Plan 1) Metabolic encephalopathy -Improving , likely secondary due to CVA , hospitalization , possible seizure , hyponatremia, dehydration - Patient received 2 doses of lorazepam since morning , please avoid giving benzodiazepines as theycan worsen confusion - Rule out seizure as an etiology for encephalopathy -Home medications with potential for withdrawal: none -Ongoing assessment for potential constipation and urinary retention. Last bowel movement - unknown -Assess and treat for pain first should agitation develop -Delirium and insomnia protocols implemented. -Schedule melatonin qHS. -QTc = 478 - continue schedule Seroquel 12.5 mg qHS , discontinue after 1 more dose -PRN - Seroquel 12.5 mg q 6 h prn agitation -If unable to take PO/or ineffective - ok for Ativan 0.5 mg q 6 h prn -Recommendations: Avoid sedating/anticholinergic medications, encourage sleep hygiene, encourage family visits, optimize sensory input and access to assistive devices where indicated, encourage time up in chair as able and D/c Negron, restraints, IV lines, as able 2) Cognitive deficits - patient is still confused and unable to complete MMSE today, will reattempt as able -Decline in IADL of medications -Difficult to tell from family's history if this sounds due to cognitive impairment vs choice of not taking meds. - thyroid-stimulating hormone within normal limits -CT-head reviewed, remote right FEED MIXER infarct. MRI Showed small acute infarct in right subinsular andleft peritrigonal white matter with extensive chronic ischemic changes. -Recommend follow-up at [facility]. Added to discharge instructions. 3) Fall - likely precipitated by encephalopathy and stroke - physical and occupational therapy evaluation pending - please check orthostatic vital sign -Echocardiogram Showing normal ejection fraction with no regional wall motion abnormalities - Vitamin D levels are low, will start supplement. -Home meds reviewed - fall risk associated with oxybutynin and antihypertensives. 4) Urinary incontinence -Oxybutynin has high anticholinergic side effects - increased risk for falls and confusion. -Recommend replacing with trospium 20 mg BID and continue at discharge 5) Declining functional status -Due to acute medical condition, hospitalization -Will need PT/OT evaluation -High risk for needing SNF at discharge. Subjective Chief Complaint: Altered mental status Geriatrics consulted for Encephalopathy and noncompliance HPI- The patient is new to me but seen by the Geriatric Inpatient Consult team. 79 y.o. year-old female admitted to acute care from home for altered mental status. Diagnosed with Acute CVA . Interval History: Remains on general medical/surgical floor . Patient lying comfortably in bed [facility] medical cent[facility] and was able to tell me that she is at [facility] . She knows the year, month but was not able to tell me the date and day. Had a bowel movement this morning. Denies any weakness , chest pain but wants Negron catheter to be taken out. She wants to go home Physical and occupational therapy evaluation pending Review of Systems Constitutional: Positive for fatigue. Negative for activity change, appetite change and fever. HENT: Negative for hearing loss. Eyes: Negative for redness and visual disturbance. Respiratory: Negative. Negative for cough, chest tightness, shortness of breath and wheezing. Cardiovascular: Negative for chest pain, palpitations and leg swelling. Gastrointestinal: Negative for abdominal distention, abdominal pain, constipation and diarrhea. Genitourinary: Negative for dysuria, frequency and hematuria. Musculoskeletal: Negative for gait problem and neck pain. Skin: Negative for pallor and rash. Neurological: Positive for weakness. Negative for tremors, seizures, facial asymmetry, speech difficulty and numbness. Psychiatric/Behavioral: Negative for hallucinations and sleep disturbance. The patient is not nervous/anxious. Objective BP 116/64 Pulse 90 Temp 97.1 F (36.2 C) (Temporal) Resp 18 Wt 217 lb (98.4 kg) SpO2 95% BMI 38.44 kg/m Intake/Output Summary (Last 24 hours) at 04/03/2020 1346 Last data filed at 04/03/2020 1340 Gross per 24 hour Intake 120 ml Output 300 ml Net -180 ml Patient Vitals for the past 96 hrs (Last 3 readings): Weight 04/01/202001 217 lb (98.4 kg) 04/01/201999 217 lb (98.4 kg) Current Facility-Administered Medications: lactated ringers infusion, , Intravenous, Continuous sodium chloride flush 0.9 % injection 10 mL, 10 mL, Intravenous, 2 times per day sodium chloride flush 0.9 % injection 10 mL, 10 mL, Intravenous, PRN acetaminophen (TYLENOL) tablet 650 mg, 650 mg, Oral, Q4H PRN OR acetaminophen (TYLENOL) suppository 650 mg, 650 mg, Rectal, Q4H PRN ondansetron (ZOFRAN) injection 4 mg, 4 mg, Intravenous, Q6H PRN atorvastatin (LIPITOR) tablet 40 mg, 40 mg, Oral, Nightly aspirin EC tablet 81 mg, 81 mg, Oral, Daily OR aspirin suppository 300 mg, 300 mg, Rectal, Daily labetalol (NORMODYNE;TRANDATE) injection 10 mg, 10 mg, Intravenous, Q10 Min PRN bisacodyl (DULCOLAX) suppository 10 mg, 10 mg, Rectal, Daily PRN enoxaparin (LOVENOX) injection 40 mg, 40 mg, Subcutaneous, Daily glucose (GLUTOSE) 40 % oral gel 15 g, 15 g, Oral, PRN dextrose 50 % IV solution, 12.5 g, Intravenous, PRN glucagon (rDNA) injection 1 mg, 1 mg, Intramuscular, PRN dextrose 5 % solution, 100 mL/hr, Intravenous, PRN perflutren lipid microspheres (DEFINITY) injection 1.65 mg, 1.5 mL, Intravenous, ONCE PRN sodium chloride flush 0.9 % injection 10 mL, 10 mL, Intravenous, PRN insulin lispro protamine & lispro (HUMALOG MIX) (75-25) 100 UNIT per ML injection vial SUSP 25 Units, 25 Units, Subcutaneous, BID WC insulin lispro (HUMALOG) injection vial 0-18 Units, 0-18 Units, Subcutaneous, TID WC insulin lispro (HUMALOG) injection vial 0-9 Units, 0-9 Units, Subcutaneous, Nightly LORazepam (ATIVAN) injection 0.5 mg, 0.5 mg, Intravenous, Q4H PRN cefTRIAXone sodium 1 g in dextrose 5 % 50 mL IVPB (add-vantage), 1 g, Intravenous, Q24H melatonin ER tablet 2 mg, 2 mg, Oral, Nightly QUEtiapine (SEROQUEL) tablet 12.5 mg, 12.5 mg, Oral, Nightly QUEtiapine (SEROQUEL) tablet 12.5 mg, 12.5 mg, Oral, Q6H PRN Physical Exam Vitals signs and nursing note reviewed. Exam conducted with a asbestos shingle roofer present. Constitutional: Appearance: Normal appearance. HENT: Head: Normocephalic and atraumatic. Right Ear: External ear normal. Left Ear: External ear normal. Nose: Nose normal. Mouth/Throat: Mouth: Mucous membranes are moist. Pharynx: Oropharynx is clear. Eyes: Extraocular Movements: Extraocular movements intact. Conjunctiva/sclera: Conjunctivae normal. Pupils: Pupils are equal, round, and reactive to light. Neck: Musculoskeletal: Normal range of motion. Cardiovascular: Rate and Rhythm: Normal rate and regular rhythm. Pulses: Normal pulses. Heart sounds: Normal heart sounds. Pulmonary: Effort: Pulmonary effort is normal. Breath sounds: Normal breath sounds. No wheezing. Abdominal: General: Abdomen is flat. Bowel sounds are normal. There is no distension. Palpations: Abdomen is soft. Tenderness: There is no abdominal tenderness. Musculoskeletal: Normal range of motion. General: No swelling or tenderness. Right lower leg: No edema. Left lower leg: No edema. Skin: General: Skin is warm and dry. Neurological: Mental Status: She is alert. She is disoriented. Cranial Nerves: No cranial nerve deficit. Sensory: No sensory deficit. Motor: Weakness present. Gait: Gait abnormal. Deep Tendon Reflexes: Reflexes normal. Comments: Patient is oriented to place and person but not to time moving all 4 extremities tangential and inattentive Psychiatric: Comments: Anxious Labs and Imaging: Recent Results (from the past 24 hour(s)) Urinalysis Collection Time: 04/02/20 2:39 PM Result Value Ref Range Glucose, Ur >1,000 (A) Normal (<70) mg/dL Total Protein, Urine 50 (A) Negative mg/dL Bilirubin Urine Negative Negative mg/dL Urobilinogen, Urine Normal Normal (0-1) mg/dL pH, Urine 5.5 5.0 - 8.0 NA Specific [place], Urine >1.030 (A) 1.005 - 1.030 NA Occult Blood,Urine 1.0 (A) Negative mg/dL Ketones, Urine Negative Negative mg/dL Nitrite, Urine Negative Negative NA LEUKOCYTES, UA 250 (A) Negative Sandra/uL Appearance Turbid (A) Clear NA Color, Urine Light-[place]ale (A) Lt. Yellow NA RBC, UA >100 (A) 0 - 2 /[HPF] WBC, UA 51-100 (A) 0 - 5 /[HPF] Squam Epithel, UA Negative 3 - 5 /[HPF] Bacteria, UA Moderate (A) Negative /[HPF] Mucous Threads Few Negative /[LPF] Yeast, Urine Moderate (A) Negative /[HPF] Hyaline Casts, UA Negative Negative /[LPF] Granular Casts, UA 3-5 (A) Negative /[LPF] Cellular Cast, UA 3-5 (A) Negative /[LPF] WBC Clumps, Urine Occasional (A) Negative /[HPF] URINE DRUG SCREEN Collection Time: 04/02/20 2:39 PM Result Value Ref Range Amphetamines, urine Negative NA Barbiturates, Ur Negative NA Benzodiazepine Ur Qual Positive NA Cocaine Metabolites, Ur Negative NA Methadone, Urine Negative NA Opiates, Urine Negative NA Oxycodone Screen, Ur Negative NA PCP, Urine Negative NA STREP PNEUMONIAE ANTIGEN Collection Time: 04/02/20 2:40 PM Specimen: Urine CLAMPED NEGRON Result Value Ref Range STREP PNEUMONIAE ANTIGEN, URINE NOT DETECTED Legionella Antigen, Urine Collection Time: 04/02/20 2:40 PM Specimen: Urine CLAMPED NEGRON Result Value Ref Range LEGIONELLA ANTIGEN NOT DETECTED POCT Glucose Collection Time: 04/02/20 4:26 PM Result Value Ref Range POC Glucose 91 70 - 100 mg/dL POCT Glucose Collection Time: 04/02/20 9:25 PM Result Value Ref Range POC Glucose 166 (H) 70 - 100 mg/dL Troponin Collection Time: 04/02/20 9:47 PM Result Value Ref Range Troponin I 0.202 (H) 0.000 - 0.034 ng/mL CBC Collection Time: 04/03/20 2:37 AM Result Value Ref Range WBC 8.7 3.6 - 10.7 10*3/uL RBC 4.22 3.80 - 5.20 10*6/uL Hemoglobin 12.3 11.7 - 16.0 g/dL Hematocrit 35.1 35.0 - 47.0 % MCV 83.1 79.0 - 98.0 fL MCH 29.2 26.0 - 34.0 pg MCHC 35.1 32.0 - 36.0 % RDW 14.2 11.5 - 14.5 % Platelets 129 (L) 140 - 440 10*3/uL MPV 10.1 7.4 - 10.4 fL VITAMIN D 25 HYDROXY Collection Time: 04/03/20 2:37 AM Result Value Ref Range Vit D, 25-Hydroxy <13 (L) 30 - 100 ng/mL Magnesium Collection Time: 04/03/20 2:38 AM Result Value Ref Range Magnesium 2.0 1.6 - 2.3 mg/dL Phosphorus Collection Time: 04/03/20 2:38 AM Result Value Ref Range Phosphorus 4.0 2.5 - 4.5 mg/dL Comprehensive Metabolic Panel w/ Reflex to MG Collection Time: 04/03/20 2:38 AM Result Value Ref Range Sodium 132 (L) 135 - 145 mmol/L Potassium 4.7 3.5 - 5.1 mmol/L Chloride 102 98 - 107 mmol/L CO2 21 (L) 22 - 30 mmol/L Anion Gap 9 NA Glucose 184 (H) 70 - 100 mg/dL BUN 42 (H) 7 - 20 mg/dL CREATININE 1.97 (H) 0.52 - 1.25 mg/dL eGFR 27.6 (A) >60 mL/min EGFR IF NonAfrican Citizen Of [place] 23.8 (A) >60 mL/min Calcium 9.4 8.4 - 10.4 mg/dL Albumin,Serum 3.8 3.5 - 5.0 g/dL Total Protein 6.8 6.3 - 8.2 g/dL Total Bilirubin 1.3 0.2 - 1.3 mg/dL Alkaline Phosphatase 115 38 - 126 U/L ALT 13 0 - 34 U/L AST 51 (H) 15 - 46 U/L Ammonia Collection Time: 04/03/20 2:38 AM Result Value Ref Range Ammonia <9 9 - 30 umol/L Troponin Collection Time: 04/03/20 2:38 AM Result Value Ref Range Troponin I 0.205 (H) 0.000 - 0.034 ng/mL Add On Lab Test Collection Time: 04/03/20 6:28 AM Result Value Ref Range Add On Accepted NA Troponin Collection Time: 04/03/20 6:29 AM Result Value Ref Range Troponin I 0.179 (H) 0.000 - 0.034 ng/mL POCT Glucose Collection Time: 04/03/20 8:23 AM Result Value Ref Range POC Glucose 212 (H) 70 - 100 mg/dL Urea nitrogen, urine Collection Time: 04/03/20 10:05 AM Result Value Ref Range Urea Nitrogen, Random Urine 316 No Range mg/dL CREATININE, RANDOM URINE Collection Time: 04/03/20 10:05 AM Result Value Ref Range CREATININE, RANDOM URINE 344.4 No Range mg/dL POCT Glucose Collection Time: 04/03/20 11:37 AM Result Value Ref Range POC Glucose 174 (H) 70 - 100 mg/dL Lab Results Component Value Date TSH 0.699 04/02/2020 Lab Results Component Value Date [id number] 403 04/02/2020 Lab Results Component Value Date VITD25 <13 (L) 04/03/2020 Reviewed: active problem list, medication list, allergies, family history, social history, lab results, imaging Follow-up: will follow with you * Heidy Martinez, BUILDING CONSTRUCTION SUPERVISOR - 04/03/2020 11:09 AM EDT Speech Language Pathology Facility/Department: [facility] Dysphagia Treatment Note NAME: Maryellen Eisenberg : 1940 Patient Diagnosis(es): Patient Active Problem List Diagnosis 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) Essential hypertension Mixed hyperlipidemia Occipital cerebral infarction (HCC) History of fracture of left hip 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) Carotid artery occlusion with infarction (HCC) History of TIA (transient ischemic attack) OAB (overactive bladder) Left homonymous hemianopsia CVA, old, homonymous hemianopsia Lumbar disc disease with radiculopathy GERD with stricture Ichthyosis Asymptomatic stenosis of left carotid artery Morbidly obese (HCC) Stroke-like symptoms Acute encephalopathy Hyperglycemia Noncompliance Elevated troponin Hyponatremia AVE (acute kidney injury) ([facility]) Allergies: No Known Allergies Onset Date: 04/01/2020 Oxygen Level: room air Current Diet Level: Puree, mildly thick liquids Compensatory Techniques []Chin tuck []Small bolus []Alternate bites/ sips []No straws []Liquids by teaspoon only []Swallow x 2 with each bolus []Alternate lemon ice between each bolus [x]Position patient upright [x]Other_assist feed vs total feed Pain:none reported per pt S: Pt alert, confused, but cooperative with encouragement. Pt afebrile, lungs WDL with pt on room air. +visual spreader operator automatic. Pt with bilateral soft wrist restraints. O: assess for possible diet upgrade A: RN reports that pt has been confused, but remaining calm this am. She reports that pt does not like thickened liquids and asking for water. Trialed thin water via straw and cup. Pt with coughing with thin water via straw, cup when BUILDING CONSTRUCTION SUPERVISOR presented and cup when pt self-presented. Hyolaryngeal movement noted. [] Goal met [] Progressing as expected [x] Progressing slower than expected [] Medical status inhibits participation [] Goals not addressed this session [] Goals revised this session [] Unable to show any progress towards functional goals [] Progress towards functional goal is gradual / fair P: Continue puree, mildly thick liquid diet. Will follow. An N95 mask, full face shield, gown and gloves were worn throughout this session. * Jovon Samaniego MD - 04/03/2020 8:33 AM EDT [facility] Progress Note Maryellen Eisenberg : 1940(79 y.o.) Date: 04/03/20 Subjective: HPI The patient complains of : altered behavior 79yo WF with PMHx HTN, AIDAN (s/p R-CEA 2018), R-occipital stroke (2014) w/left- sided residual deficits who presented to [facility] ER from home. Brought in by family who found her with odd behavior and speech. Questionable worsening of motor function on left-side. Presented as stroke team, initial NIH 4.CT Head, CTA H&N negative for acute change (known mild carotid disease with R-FEED MIXER territory infa rct). Patient required restraints while in ER due to agitation, which were continued on general medical floor. Seen by neurology and geriatrics. MRI showing small acute infarcts R-subinsular and left-peritrigonal white matter. Started on IV atbx for UTI. Labs and vitals reviewed. Afebrile. HR 87, BP 97/55. Not requiring oxygen. SCr 0.9 --> 1.97. glucose improved in upper 100s. Troponin downtrended. AST 51 (from 25). Overnight, required IVF bolus due to decreased UOP. Scheduled Meds: sodium chloride flush 10 mL Intravenous 2 times per day atorvastatin 40 mg Oral Nightly aspirin 81 mg Oral Daily Or aspirin 300 mg Rectal Daily enoxaparin 40 mg Subcutaneous Daily insulin lispro prot & lispro 25 Units Subcutaneous BID WC insulin lispro 0-18 Units Subcutaneous TID WC insulin lispro 0-9 Units Subcutaneous Nightly cefTRIAXone (ROCEPHIN) IV 1 g Intravenous Q24H melatonin 2 mg Oral Nightly QUEtiapine 12.5 mg Oral Nightly Continuous Infusions: dextrose PRN Meds:sodium chloride flush, acetaminophen OR acetaminophen, ondansetron, labetalol, bisacodyl, glucose, dextrose, glucagon (rDNA), dextrose, perflutren lipid microspheres, sodium chloride flush, LORazepam, QUEtiapine Review of Systems Interval Pertinent History: Social History Tobacco Use Smoking status: Never Smoker Smokeless tobacco: Never Used Substance Use Topics Alcohol use: No Alcohol/week: 0.0 standard drinks Frequency: Never Objective: Patient Vitals for the past 24 hrs: BP Temp Temp src Pulse Resp SpO2 04/03/20 0839 (!) 150/65 97.2 F (36.2 C) Temporal 90 20 95 % 04/03/20 0430 (!) 97/55 97 F (36.1 C) Temporal 54 20 96 % 04/03/20 0058 (!) 90/44 97.7 F (36.5 C) Temporal 83 20 95 % 04/02/202005 131/70 97.7 F (36.5 C) Temporal 89 16 95 % 04/02/20 1624 (!) 118/58 97.5 F (36.4 C) Temporal 82 16 93 % 04/02/20 1256 (!) 141/101 98 F (36.7 C) Temporal 89 17 96 % Average, Min, and Max for last 24 hours Vitals: TEMPERATURE: Temp Av.5 F (36.4 C) Min: 97 F (36.1 C) Max: 98 F (36.7 C) RESPIRATIONS RANGE: Resp Av.2 Min: 16 Max: 20 PULSE RANGE: Pulse Av.2 Min: 54 Max: 90 BLOOD PRESSURE RANGE: Systolic (24hrs), Av , Min:90 , Max:150 ; Diastolic (24hrs), Av, Min:44, Max:101 PULSE OXIMETRY RANGE: SpO2 Av % Min: 93 % Max: 96 % I/O last 3 completed shifts: In: - Out: 300 [Urine:300] Physical Exam Lab Results Component Value Date WBC 8.7 04/03/2020 HGB 12.3 04/03/2020 HCT 35.1 04/03/2020 MCV 83.1 04/03/2020 PLT 129 (L) 04/03/2020 Lab Results Component Value Date NA 132 04/03/2020 K 4.7 04/03/2020 CL 102 04/03/2020 CO2 21 04/03/2020 BUN 42 04/03/2020 CREATININE 1.97 04/03/2020 GLUCOSE 184 04/03/2020 CALCIUM 9.4 04/03/2020 Lab Results Component Value Date LABA1C 9.0 (H) 04/02/2020 MRI Brain 04/02/20 IMPRESSION: 1. Small acute infarcts right subinsular and left peritrigonal white matter. 2. Extensive chronic ischemic changes. Additional results of the last 24 hours have been reviewed. 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 * Assessment/Plan: # Acute encephalopathy, toxic v metabolic - in setting noncompliance, accelerated HTN, hyperglycemia and prior stroke - required 5mg Haldol and 1mg versed at admission - stroke neuro consulted - MRI (+) small acute infarcts - echo pending - on aspirin, statin, PT/OT, IVF, BUILDING CONSTRUCTION SUPERVISOR (failed swallow eval) - infectious workup: oconnell culture, procal, RVP - aggressive BGT/insulin adjustment - meds/OARRS reviewed - last filled tramadol in November 2019 # Small acute infarcts - noted on MRI 04/02 - neuro on-board # AVE, suspect pre-renal in setting of hypotension overnight - meds reviewed, non-nephrotox - check urine lytes, renal ultrasound - FeUrea 4.3% (pre-renal disease) --> continue IVF, await echo # Elevated troponin - downtrended - in setting of agitation, accelerated HTN - suspect demand but check tele, EKG and echo - recheck EKG in setting of trop peak overnight (0.202) and new elevated AST # T2DM, insulin-requiring, uncontrolled # Hyperglycemia - no insulin given overnight/this AM - in setting of noncompliance - A1c 9.0 - home meds: insulin 70/30: 54units qAM, 44 units qHS - restart at 25units (of 75/25 mix) BID WC # Hypertension, accelerated - suspect due to noncompliance - home meds: diltiazem, lisinopril, HCTZ - use IV while unable to take oral # Hyponatremia, mild # Elevated alkaline phosphatase # Hx AIDAN, s/p CEA # Hx stroke DVTProphylaxis: lovenox 40 q 24hr - creatinine clearance >30 Disposition:await test results, await showroom consultant recommendations and await clinical improvement I spent over 51% of total time providing counseling or incoordination of care: 35 minutes patient and family updated, I personally examined the patient and I personally reviewed chart, data, labs radiology reports 6AM-6PM please page: 6PM-6AM please page: [facility] Internal Medicine * Melissa Rivera [facility] - 04/02/2020 6:08 PM EDT Screened patients medications for those contributing to insomnia. No changes needed at this time. Continue to monitor. 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 ONSET DATE: 04-01-2020 Recent Chest Xray/CT of Chest: none Head CT:IMPRESSION: Negative CT examination of the brain. Remote right FEED MIXER infarct. Chronic ischemic changes. No acute infarcts. Date of Eval: 04/02/2020 Evaluating Therapist: Jocy Beasley Current Diet level: Current Diet : NPO Current Liquid Diet : NPO Primary Complaint Patient Complaint: confused Reason for Referral Per physician notes: HPI Maryellen Eisenberg is a 79 y.o. female with PMH R FEED MIXER/Occipital Ischemic Stroke 2016 with mild L sided deficits and homonymous hemianopsia, R carotid occlusion s/p R CEA 2019, T2DM, HTN, HPL, GERD, LumbarDisc Disease that presented to [facility] on 04/01/2020 from home with acute symptoms of AMS. LNW around 6:30. Patient, per family, was found to be exiting her house and was immediately found to have AMS acutely. AMS consisted of odd behavior, strange speech, and bizarre gross movements. Family and EMS hasconflicting views on whether patient did collapse or not. Per family, the patient additionally had acute on chronic worsening of her left facial sensation and motor movement as well as acute on chronic worsening of her motor function in upper extremity. With acute decline, family called EMS with concern of stroke. EMS was called and patient was brought to [facility] ED with a stroke team called. Initial NIH was a 4. CThead, CTA h/n and CT Brain perfusion did not show any bleed nor acute ischemic changes but did showchronic ischemic changes and mild carotid disease with remote R FEED MIXER infarct. She was hypertensive with SBP in ED ranging from 170s to low 200s. When transferred to ED room, patient's acute condition improved closer to baseline per family, yet still not completely resolved. Patient was overall uncooperative with exam, which is consistent to her presentation at home usually. Repeat NIH was a 1 withminor paralysis of face. Maryellen Eisenberg was referred for a bedside swallow evaluation to assess the efficiency of her swallowfunction, identify signs and symptoms of aspiration and make recommendations regarding safe dietaryconsistencies, effective compensatory strategies, and safe eating environment. Impression Dysphagia Impression : oropharyngeal dysphagia compounded by decreased cognition +s/s aspiration with thin liquids, limited cooperation with exam Treatment Plan Requires BUILDING CONSTRUCTION SUPERVISOR Intervention: Yes Duration/Frequency of Treatment: 3 x week, 2 weeks Recommended Diet and Intervention Diet Solids Recommendation: Dysphagia Pureed (Dysphagia I) Liquid Consistency Recommendation: Mildly Thick ([place]) Recommended Form of Meds: Crushed in puree as able Therapeutic Interventions: Diet tolerance monitoring;Therapeutic PO trials with BUILDING CONSTRUCTION SUPERVISOR Compensatory Swallowing Strategies Compensatory Swallowing Strategies: Upright as possible for all oral intake;Total feed Treatment/Goals Dysphagia Goals: The patient will tolerate recommended diet without observed clinical signs of aspiration;The patient will tolerate thin liquids without signs and symptoms of aspiration 10/10 via cup.;The patient will tolerate mechanical soft foods 10/10. General Chart Reviewed: Yes Comments: Pt awakens- in bilateral soft wrist restraints. Pt confused. Behavior/Cognition: Alert;Confused Respiratory Status: Room air Communication Observation: Functional Follows Directions: Simple(inconsistent) Dentition: (edentulous upper, natural lower) Patient Positioning: Upright in bed Baseline Vocal Quality: Normal Volitional Cough: Strong Prior Dysphagia History: No prior MBSS in [facility]. Consistencies Administered: Dysphagia Pureed (Dysphagia I);Ice Chips;[place] - teaspoon;[place] - straw;Thin - cup Oral Motor Deficits Oral/Motor Oral Motor: (did not follow commands to assess) Oral Phase Dysfunction Oral Phase Oral Phase - Comment: Pt responds, I don't know or I don't care to most simple ?s. Therapist feeding pt (in wrist restraints). Pt readily accepts bolus and initiates oral bolus manipulation. Unableto view for oral residues as pt will not fully open mouth on command. DN test solids. Indicators of Pharyngeal Phase Dysfunction Pharyngeal Phase Pharyngeal: Hyolaryngeal movement noted. Suspect premature spillage and laryngeal penetration/aspiration with cup sips of thin water +immediate cough. No overt s/s aspiration with mildly thick liquids, applesauce and ice chips. Prognosis Prognosis Prognosis for safe diet advancement: fair Barriers to reach goals: cognitive deficits;behavior Individuals consulted Consulted and agree with results and recommendations: RN Education Patient Education Response: No evidence of learning Safety Devices in place: Yes Therapy Time BUILDING CONSTRUCTION SUPERVISOR Individual Minutes Time In: 0845 Time Out: 0900 Minutes: 15 BUILDING CONSTRUCTION SUPERVISOR Total Treatment Time Timed Code Treatment Minutes: 15 Minutes Total Treatment Time: [address] [facility] BUILDING CONSTRUCTION SUPERVISOR 04/02/2020 9:32 AM An N95 mask, a full face shield and gloves were worn throughout this session. 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 with infarction (HCC) Occlusion and stenosis of carotid artery with cerebral infarction Morbidly obese (HCC) Morbid obesity Acute encephalopathy Encephalopathy, unspecified Hyperglycemia Other abnormal glucose Noncompliance Personal history of noncompliance with medical treatment, presenting hazards to health Elevated troponin Other abnormal blood chemistry Hyponatremia Hyposmolality and/or hyponatremia AVE (acute kidney injury) (HCC) Acute kidney failure, unspecified Advance Directives No Advanced Directives Records FoundDocuments on File Type Date Recorded Patient Quality Coordinator Expl anation ACP-Advance Directive ACP-Power of Job Spotter Latest Code Status on File Code Status Date Activated Date Inactivated Comments Full Code 04/02/2020 1:54 AM Latest Code Status on File Code Status Date Activated Date Inactivated Comments Full Code 11/04/2020 11:11 PM 11/07/2020 6:20 PM Full Code 04/02/2020 1:54 AM 04/05/2020 6:07 PM Documents on File Type Date Recorded Patient Quality Coordinator Expl anation ACP-Advance Directive ACP-Power of Job Spotter Latest Code Status on File Code Status Date Activated Date Inactivated Comments Full Code 04/07/2021 10:58 PM Full Code 04/06/2021 7:35 PM 04/07/2021 10:58 PM Full Code 11/04/2020 11:11 PM 11/07/2020 6:20 PM Full Code 04/02/2020 1:54 AM 04/05/2020 6:07 PM Latest Code Status on File Code Status Date Activated Date Inactivated Comments Full Code 04/07/2021 10:58 PM 04/10/2021 8:01 PM Full Code 04/06/2021 7:35 PM 04/07/2021 10:58 PM Full Code 11/04/2020 11:11 PM 11/07/2020 6:20 PM Reason for Referral Status Reason Specialty Diagnoses / Procedures Referred By Contact Referred To Contact Open Specialty Services Required Urology Diagnoses Recurrent UTI Jodie Minor PA [address] [place] [address] Afl Spi [facility] [place] [address] [facility] [place] [address] Scheduling Instructions [facility] Urology - [facility] [address] , [address] [place], [place] [address] Summary Purpose Family History No Family History Records FoundNo Family History Records Found Additional Source Comments Reason for Visit (unrecogniz ed section and content) Reason Comments Ankle Pain Ordered Prescriptions (unrec ognized section and content) Scheduled Active and Recently Administ ered Medications (unrecognized section and content) PRN Medication Order 04/08/2021 04/09/2021 04/10/2021 0.9 % sodium chloride infusion 25 mL, IntraVENous, at 100 mL/hr, PRN, If patient receiving piggyback infusions without ordered maintenance IV fluids or with frequent/long duration piggyback infusions, Starting on Tue04/06/21 at 2333, Administer at the same rate as the piggyback being infused. 0.9 % sodium chloride infusion 25 mL, IntraVENous, at 100 mL/hr, PRN, If patient receiving piggyback infusions without ordered maintenance IV fluids or with frequent/long duration piggyback infusions, Starting on Tue04/07/21 at 2258, Administer at the same rate as the piggyback being infused., Post-op dextrose 5 % solution 100 mL/hr, IntraVENous, at 100 mL/hr, PRN, Low blood sugar, Starting on Tue04/06/21 at 1933, Start infusion following administration of dextrose 50% or glucagon. dextrose 50 % IV solution 12.5 g, IntraVENous, PRN, Low blood sugar, Blood glucose less than 70 mg/dL and patient NOT ALERT or NPO., Starting on Tue04/06/21 at 1933, If patient does not respond within 5 minutes, repeat dose x1. Start D5W at 100 mL/hour until ordering provider can be reached. Repeat blood glucose in 15 minutes. If blood glucose is less than 70 mg/dL, repeat treatment and recheck blood glucose in 15 minutes x2. If using Glucostabilizer, dose as instructed per system. glucagon (rDNA) injection 1 mg 1 mg, IntraMUSCular, PRN, Low blood sugar, Blood glucose less than 70 mg/dL and patient NOT ALERT or NPO and does not have IV access., Starting on Tue04/06/21 at 1933, After administration, attempt intravenous access and start D5W at 100 mL/hr. Repeat blood glucose in 15 minutes x2 and notify provider. glucose (GLUTOSE) 40 % oral gel 15 g 15 g, Oral, PRN, Low blood sugar, Starting on Tue04/06/21 at 1933, If blood glucose less than 50 mg/dL and patient ALERT and TOLERATING PO, give 2 tubes glucose gel. If blood glucose less than 70 mg/dL and patient ALERT and TOLERATING PO, give 1 tube glucose gel. Repeat blood glucose in 15 minutes. If blood glucose is less than 70 mg/dL, repeat treatment and recheck blood glucose in 15 minutes x2 and notify provider. ondansetron (ZOFRAN) injection 4 mg(Linked Group 1) 4 mg, IntraVENous, EVERY 6 HOURS PRN, Nausea, Vomiting, Starting on Tue04/06/21 at 1935, Administer if oral route cannot be used. oxyCODONE (ROXICODONE) immediate release tablet 2.5 mg(Linked Group 2) 2.5 mg, Oral, EVERY 4 HOURS PRN, Pain Moderate (4-6), Starting on Tue04/07/21 at 1239 0559 (See Alternative - Provider: Suzan Holt RN) 1538 (See Alternative - Provider: Regine Tirado, ERIK) oxyCODONE (ROXICODONE) immediate release tablet 5 mg(Linked Group 2) 5 mg, Oral, EVERY 4 HOURS PRN, Pain Severe (7-10), Starting on Tue04/07/21 at 1239 0559 (Given - Provider: Suzan Holt RN) 1538 (Given - Provider: Regine Tirado, ERIK) polyethylene glycol (GLYCOLAX) packet 17 g 17 g, Oral, DAILY PRN, Constipation, Starting on Tue04/06/21 at 2333, First line therapy for constipation promethazine (PHENERGAN) tablet 12.5 mg(Linked Group 1) 12.5 mg, Oral, EVERY 6 HOURS PRN, Nausea, Vomiting, Starting on Tue04/06/21 at 1935 sennosides-docusate sodium (SENOKOT-S) 8.6-50 MG tablet 2 tablet 2 tablet, Oral, DAILY PRN, Constipation, Starting on Tue04/06/21 at 2333 sodium chloride flush 0.9 % injection 10 mL 10 mL, IntraVENous, PRN, Line Care, After every IV line use, Starting on Tue04/06/21 at 2333 sodium chloride flush 0.9 % injection 5-40 mL 5-40 mL, IntraVENous, PRN, Line Care, Starting on Tue04/07/21 at 2258, After every IV line use, Post-op Linked Groups Order Group 1: promethazine (PHENERGAN) tablet 12.5 mgJump to med 12.5 mg, Oral, EVERY 6 HOURS PRN, Nausea, Vomiting, Starting on Tue04/06/21 at 1935 Or ondansetron (ZOFRAN) injection 4 mgJump to med 4 mg, IntraVENous, EVERY 6 HOURS PRN, Nausea, Vomiting, Starting on Tue04/06/21 at 1935
Administer if oral route cannot be used.
Group 2: oxyCODONE (ROXICODONE) immediate release tablet 2.5 mgJump to med 2.5 mg, Oral, EVERY 4 HOURS PRN, Pain Moderate (4-6), Starting on Tue04/07/21 at 1239 Or oxyCODONE (ROXICODONE) immediate release tablet 5 mgJump to med 5 mg, Oral, EVERY 4 HOURS PRN, Pain Severe (7-10), Starting on Tue04/07/21 at 1239 INFORMATION SOURCE (unrecogn ized section and content) DATE CREATED AUTHOR AUTHOR'S ORGANIZ ATION 12/15/2021 [facility] FOR RECORDS PERTAINING TO PATIENTS WHO ARE OR HAVE BEEN ENROLLED IN A CHEMICAL DEPENDENCY/SUBSTANCEABUSE PROGRAM, SOME INFORMATION MAY BE OMITTED. This clinical summary was aggregated from multiple sources. Caution should be exercised in using it in the provision of clinical care. This summary normalizes information from multiple sources, and as a consequence, information in this document may materially change the coding, format and clinical context of patient data. In addition, data may be omitted in some cases. CLINICAL DECISIONS SHOULD BE BASED ON THE PRIMARY CLINICAL RECORDS. [employer] [facility]. provides no warranty or guarantee of the accuracy or completeness of information in this document.
[2023-08-17 15:28] LABS: Hemoglobin A1c 7.2 % (3.8-5.6)
== END ==
LOC: OLS.SW 05:00
PROVIDERS: PCP Family Medicine; Visit Provider Family Medicine
DX: E11.9 Type 2 diabetes mellitus without complications (principal)
CPT/HCPCS: 36415; 83036

== ENCOUNTER → 2023-10-12 05:00 | Outpatient (REF) | payer MEDICARE, SELFPAY ==
[2023-10-12 07:55] LABS: Mean Corp Hgb Conc 32.1 g/dL (32-36); Mean Corpuscular Hgb 26.3 pg (27.0-32.0); Mean Corpuscular Volume 81.9 fL (81-99); Mean Platelet Vol. 10.2 fl (6.2-12.0); Platelet Count 178 K/mm3 (150-450); RBC Distribution Width CV 14.6 % (11.6-14.6); RBC Distribution Width SD 43.8 fl (35.1-43.9); Red Blood Count 3.42 M/mm3 (4.2-5.4); White Blood Count 4.4 K/mm3 (4.4-11.0)
[2023-10-12 08:24] LABS: Anion Gap 5 (5-15); BUN 44 mg/dL (7-18); BUN/Creat Ratio 28.6 RATIO (10-20); Calcium,Total 8.8 mg/dL (8.5-10.1); Chloride 108 mmol/L (98-107); Creatinine, Serum 1.54 mg/dL (0.55-1.02); EST Glomerular Filtration Rate 34 mL/min (>60); Est Glom Filt Rate - Afr Amer 42 mL/min (>60); Glucose 81 mg/dL (74-106); Potassium 4.6 mmol/L (3.5-5.1); Sodium Level 138 mmol/L (136-145)
== END ==
LOC: OLS.SW 05:00
PROVIDERS: PCP Family Medicine; Visit Provider Family Medicine
DX: E11.9 Type 2 diabetes mellitus without complications (principal); I10 Essential (primary) hypertension
CPT/HCPCS: 36415; 80048; 85027

== ENCOUNTER → 2023-11-16 | Outpatient (REF) | payer MEDICARE, SELFPAY | LOC: OLS.SW 05:00 | PROVIDERS: PCP Family Medicine; Visit Provider Family Medicine | DX: E11.9 Type 2 diabetes mellitus without complications (principal) | CPT/HCPCS: 36415; 83036 ==

== ENCOUNTER → 2024-02-16 05:00 | Outpatient (REF) | payer MEDICARE, SELFPAY ==
[2024-02-16 09:03] LABS: Hemoglobin A1c 6.9 % (3.8-5.6)
== END ==
LOC: OLS.SW 05:00
PROVIDERS: PCP Family Medicine; Visit Provider Family Medicine
DX: E11.9 Type 2 diabetes mellitus without complications (principal)
CPT/HCPCS: 36415; 83036

== ENCOUNTER → 2024-02-22 05:20 | Outpatient (REF) | payer MEDICARE, SELFPAY ==
[2024-02-22 08:02] LABS: Color, Urine Yellow (Yellow); Glucose, Dipstick 50 mg/dl (Normal); Ketone-Dipstick Negative (Negative); Leukocyte Esterase-Dipstick 500 /ul (Negative); Nitrite-Dipstick Positive (Negative); Occult Blood-Urine 150 /ul (Negative); Protein-Dipstick 500 mg/dl (Negative); Urine Bilirubin Dipstick Negative (Negative); Urine Clarity Cloudy (Clear); Urine Urobilinogen Normal (Normal)
[2024-02-22 08:17] LABS: White Blood Cells 50-100 SEEN /hpf (0-5)
[2024-02-22 08:18] LABS: Vitamin B12 392 pg/mL (211-911)
[2024-02-22 08:18] LABS: Bacteria 3+ /hpf (None Seen); Mucous, Urine 1+ /hpf (<or=2+); Red Blood Cells-Urine 5-10 SEEN /hpf (0-5); Squamous Epithelial Cells - UA 5-10 SEEN /hpf (5-10)
[2024-02-22 08:35] LABS: Thyroid Stim Hormone (TSH) 0.72 uIU/mL (0.358-3.74)
== END ==
LOC: OLS.SW 05:20
PROVIDERS: PCP Family Medicine; Referring Provider Family Medicine; Visit Provider Family Medicine
DX: I10 Essential (primary) hypertension (principal); E78.5 Hyperlipidemia, unspecified; N39.0 Urinary tract infection, site not specified; E11.9 Type 2 diabetes mellitus without complications; I25.10 Atherosclerotic heart disease of native coronary artery without angina pectoris; Z79.899 Other long term (current) drug therapy; R05.9 Cough, unspecified; R41.82 Altered mental status, unspecified
CPT/HCPCS: 36415; 81001; 82306; 82607; 82746; 84443; 87077; 87086; 87088; 87186

== ENCOUNTER → 2024-02-29 | Outpatient (REF) | payer MEDICARE, SELFPAY ==
[2024-02-29 08:37] LABS: Hematocrit 29.6 % (37-47); Mean Corp Hgb Conc 30.4 g/dL (32-36); Mean Corpuscular Hgb 24.7 pg (27.0-32.0); Mean Corpuscular Volume 81.3 fL (81-99); Mean Platelet Vol. 9.9 fl (6.2-12.0); Platelet Count 213 K/mm3 (150-450); RBC Distribution Width CV 15.6 % (11.6-14.6); RBC Distribution Width SD 46.1 fl (35.1-43.9); Red Blood Count 3.64 M/mm3 (4.2-5.4); White Blood Count 4.7 K/mm3 (4.4-11.0)
[2024-02-29 08:55] LABS: Valproic Acid (Depakene) Level 22 ug/mL (50-100)
[2024-02-29 09:00] LABS: AST(SGOT) 12 U/L (15-37); Alanine Aminotransfer ALT/SGPT 10 U/L (13-56); Albumin, Serum 2.5 g/dL (3.2-5.0); Alkaline Phosphatase 134 U/L (45-117); Bilirubin, Direct 0.11 mg/dL (0.00-0.30); Protein, Total 6.5 g/dL (6.4-8.2)
== END ==
LOC: OLS.SW 05:00
PROVIDERS: PCP Family Medicine; Referring Provider Family Medicine; Visit Provider Family Medicine
DX: E11.9 Type 2 diabetes mellitus without complications (principal)
CPT/HCPCS: 36415; 80076; 80164; 85027

== ENCOUNTER 2024-04-02 11:00 | Emergency (ER) | payer MEDICARE, SELFPAY ==
[2024-04-02 11:04] VITALS: BP 189/90; PULSE 85; RESP 18; TEMP 36.4; BMI 39.9
[2024-04-02 11:15] VITALS: BP 90/72; PULSE 86; RESP 14; O2SAT 98
--- NOTE | 2024-04-02 12:24 | EX.ED.DYSGE1 ---
HPI History of Present Illness Chief Complaint: GI Bleed Detail of Chief Complaint: GI bleed Informant: EMS and SNF Onset/Context/Timing Onset: Today Context: Sudden Onset Timing: - (Unknown patient has problems with memory) Quality: Unknown Location: Presumed rectal Current Severity: Unable to determine Maximum Severity: Unable to determine Worsened by: Unable to determine Relieved by: Apparently nothing Associated Symptoms Associated Symptoms: Mild periumbilical pain Narrative Narrative: Patient is a 83-year-old woman. She has history of diabetes, depression and hypertension. She is not a good informant due to dementia/memory impairment. She was sent in because of GI bleed . No other information is available. Recent Illness/Hospitalization: No [facility] Medical History (Updated 04/02/24 @ 13:[address] Gus Smith MD) History of falling Morbid obesity Type 2 diabetes mellitus Atherosclerotic heart disease Home Medications ?Medication ?Instructions ?Recorded ?Last Taken ?Type aspirin 81 mg tablet,delayed 81 mg PO DAILY 04/02/24 04/01/24 History release buspirone 5 mg tablet 5 mg PO TID 04/02/24 04/02/24 History cephalexin 500 mg capsule 500 mg PO TID 04/02/24 03/08/24 History diltiazem HCl 360 mg 360 mg PO DAILY 04/02/24 04/01/24 History capsule,extended release 24 hr divalproex 125 mg capsule,delayed 125 mg PO BID 04/02/24 04/02/24 History release sprinkle docusate sodium 100 mg capsule 100 mg PO BID 04/02/24 04/01/24 History (Colace) insulin glargine 100 unit/mL (3 36 unit subcut QPM 04/02/24 04/01/24 History mL) subcutaneous pen (Basaglar KwikPen U-100 Insulin) insulin lispro 100 unit/mL 1 sliding scale dose subcut TIDCM 04/02/24 04/01/24 History subcutaneous solution lisinopril 20 mg tablet 20 mg PO DAILY 04/02/24 04/01/24 History multivitamin (Daily Multi-Vitamin 1 tab PO DAILY 04/02/24 04/01/24 History tablet) sertraline 100 mg tablet 100 mg PO DAILY 04/02/24 04/01/24 History Allergy/AdvReac Type Severity Reaction Status Date / Time No Known Allergies Allergy Verified 11/16/21 00:46 Social History Smoking Status: Never smoker ROS ROS ED Review of Systems ROS Unobtainable: due to mental status Gastrointestinal Gastrointestinal: Reports abdominal pain EXAM Physical Exam Const Vital Signs: 04/02/24 11:04 04/02/24 11:15 04/02/24 13:00 Temperature 97.6 F L Temperature Source Tympanic Pulse Rate 85 86 80 Pulse Rate [Lying] Pulse Rate [Sitting (for 1 minute prior to obtaining)] Pulse Rate [Standing (for 1 minute prior to obtaining)] Respiratory Rate 18 14 16 Blood Pressure 189/90 H 90/72 167/85 H Blood Pressure [Lying] Blood Pressure [Sitting (for 1 minute prior to obtaining)] Blood Pressure [Standing (for 1 minute prior to obtaining)] Blood Pressure Mean 123 78 112 Blood Pressure Mean [Lying] Blood Pressure Mean [Sitting (for 1 minute prior to obtaining)] Blood Pressure Mean [Standing (for 1 minute prior to obtaining)] Pulse Ox 98 99 Oxygen Delivery Method Mechanical Ventilator Room Air 04/02/24 13:03 04/02/24 13:03 Temperature Temperature Source Pulse Rate Pulse Rate [Lying] 86 Pulse Rate [Sitting (for 1 minute prior to obtaining)] 113 H Pulse Rate [Standing (for 1 minute prior to obtaining)] 98 Respiratory Rate Blood Pressure 170/84 H Blood Pressure [Lying] 161/67 H Blood Pressure [Sitting (for 1 minute prior to obtaining)] 202/112 H Blood Pressure [Standing (for 1 minute prior to obtaining)] 201/77 H Blood Pressure Mean 112 Blood Pressure Mean [Lying] 98 Blood Pressure Mean [Sitting (for 1 minute prior to obtaining)] 142 Blood Pressure Mean [Standing (for 1 minute prior to obtaining)] 118 Pulse Ox Oxygen Delivery Method Positive well nourished and well developed General Appearance ED: well developed, NAD and pallor HEENT Reports moist mucous membranes HEENT Narrative: Galloway face appearance. Ears normal. Nares patent. Posterior pharynx is normal. Eyes PERRL and EOMs intact bilaterally General Eye ED: Negative for scleral icterus Neck no lymphadenopathy, supple and no JVD Chest Wall inspection of chest normal and palpation of chest normal Resp normal respiratory effort and clear to auscultation bilaterally Cardio regular rate, regular rhythm, S1 normal heart sound, S2 normal heart sound and no murmurs GI normal to inspection, nondistended, normoactive bowel sounds, non-distended and no masses; Negative for non-tender or hepatosplenomegaly GI Narrative: Mild periumbilical tenderness. Rectal exam reveals visible external hemorrhoids. There is blood noted. Stool is brown. Suspect patient's GI bleed is due to hemorrhoidal bleeding, external Back/Spine no CVA tenderness Extremity normal to inspection Neuro oriented x3, CN's II-XII intact bilaterally and no sensory deficits noted Sensorium / Orientation: Negative for alert Psych mental status grossly normal Skin no rashes or lesions noted, no wounds and No skin turgor normal General Skin Exam: elasticity normal and pallor; Negative for jaundice MDM MDM MDM Narrative Medical decision making narrative: Second blood pressure reading is low. Will have nurse recheck. Patient's GI bleed is due to hemorrhoidal bleeding. My opinion unless the repeat blood pressure is low there is no need for blood work. Treatment and Re-Evaluation :: Orthostatic vitals are normal. Patient's pressure is high. Since he is asymptomatic this was not treated and she can take her regular meds. Discharge Plan Triage Chief Complaint: GI Bleed ED Provider: Gus Smith Dx/Rx/DC Orders Clinical Impression: Bleeding external hemorrhoids, Anxiety, Elevated blood pressure reading with diagnosis of hypertension, Type 1 diabetes Instructions: ED Hemorrhoids Prescriptions: No Action aspirin 81 mg tablet,delayed release (DR/EC) 81 mg PO DAILY insulin glargine [Basaglar KwikPen U-100 Insulin] 100 unit/mL (3 mL) insulin pen 36 unit subcut QPM diltiazem HCl 360 mg capsule,extended release 24hr 360 mg PO DAILY lisinopril 20 mg tablet 20 mg PO DAILY multivitamin [Daily Multi-Vitamin] Tablet 1 tab PO DAILY sertraline 100 mg tablet 100 mg PO DAILY docusate sodium [Colace] 100 mg capsule 100 mg PO BID buspirone 5 mg tablet 5 mg PO TID cephalexin 500 mg capsule 500 mg PO TID insulin lispro 100 unit/mL solution 1 sliding scale dose subcut TIDCM divalproex 125 mg capsule, delayed rel sprinkle 125 mg PO BID Primary Care Provider: Grabiel Cox Referrals: Grabiel Cox MD [Primary Care Provider] - 1 Week if not improving Print Language: Zambian Disposition Disposition: Home, Self Care
[2024-04-02 13:00] VITALS: BP 167/85; PULSE 80; RESP 16; O2SAT 99
[2024-04-02 13:03] VITALS: BP 161/67; BP 170/84; BP 201/77; BP 202/112; PULSE 113; PULSE 86; PULSE 98
[2024-04-02 14:58] VITALS: BP 168/74; PULSE 75; RESP 18; TEMP 36.6; O2SAT 94
== END 2024-04-02 15:00 | disposition skilled nursing facility (03) ==
PROVIDERS: Emergency Provider Emergency Medicine; PCP Family Medicine; Visit Provider Emergency Medicine
DX: K64.4 Residual hemorrhoidal skin tags (principal); F03.90 Unspecified dementia, unspecified severity, without behavioral disturbance, psychotic disturbance, mood disturbance, and anxiety; E10.9 Type 1 diabetes mellitus without complications; Z79.4 Long term (current) use of insulin; I25.10 Atherosclerotic heart disease of native coronary artery without angina pectoris; I10 Essential (primary) hypertension; F41.9 Anxiety disorder, unspecified; Z79.82 Long term (current) use of aspirin; Z79.899 Other long term (current) drug therapy
CPT/HCPCS: 99283

== ENCOUNTER → 2024-04-11 05:00 | Outpatient (REF) | payer MEDICARE, SELFPAY ==
[2024-04-11 09:19] LABS: Hematocrit 31.8 % (37-47); Hemoglobin 9.7 g/dL (12.0-15.0); Mean Corp Hgb Conc 30.5 g/dL (32-36); Mean Corpuscular Hgb 24.1 pg (27.0-32.0); Mean Corpuscular Volume 79.1 fL (81-99); Platelet Count 176 K/mm3 (150-450); RBC Distribution Width CV 14.9 % (11.6-14.6); RBC Distribution Width SD 43.1 fl (35.1-43.9); Red Blood Count 4.02 M/mm3 (4.2-5.4); White Blood Count 6.2 K/mm3 (4.4-11.0)
[2024-04-11 09:31] LABS: Anion Gap 2 (5-15); BUN 22 mg/dL (7-18); Calcium,Total 9.3 mg/dL (8.5-10.1); Chloride 108 mmol/L (98-107); EST Glomerular Filtration Rate 51 mL/min (>60); Est Glom Filt Rate - Afr Amer 61 mL/min (>60); Glucose 82 mg/dL (74-106); Potassium 4.5 mmol/L (3.5-5.1); Sodium Level 138 mmol/L (136-145)
== END ==
LOC: OLS.SW 05:00
PROVIDERS: PCP Family Medicine; Visit Provider Family Medicine
DX: I10 Essential (primary) hypertension (principal); E11.9 Type 2 diabetes mellitus without complications
CPT/HCPCS: 36415; 80048; 85027

== ENCOUNTER → 2024-05-17 | Outpatient (REF) | payer MEDICARE, SELFPAY ==
[2024-05-17 08:33] LABS: Hemoglobin A1c 6.8 % (3.8-5.6)
== END ==
LOC: OLS.SW 05:00
PROVIDERS: PCP Family Medicine; Visit Provider Family Medicine
DX: E11.9 Type 2 diabetes mellitus without complications (principal)
CPT/HCPCS: 36415; 83036

== ENCOUNTER → 2024-05-30 | Outpatient (REF) | payer MEDICARE, MEDICAID, SELFPAY ==
[2024-05-30 08:27] LABS: Hematocrit 32.4 % (37-47); Hemoglobin 9.9 g/dL (12.0-15.0); Mean Corp Hgb Conc 30.6 g/dL (32-36); Mean Corpuscular Hgb 24.4 pg (27.0-32.0); Mean Platelet Vol. 10.7 fl (6.2-12.0); Platelet Count 169 K/mm3 (150-450); RBC Distribution Width CV 15.8 % (11.6-14.6); RBC Distribution Width SD 45.6 fl (35.1-43.9); Red Blood Count 4.05 M/mm3 (4.2-5.4); White Blood Count 5.7 K/mm3 (4.4-11.0)
[2024-05-30 08:35] LABS: Valproic Acid (Depakene) Level 16 ug/mL (50-100)
[2024-05-30 08:47] LABS: AST(SGOT) 8 U/L (15-37); Alanine Aminotransfer ALT/SGPT 10 U/L (13-56); Albumin, Serum 2.5 g/dL (3.2-5.0); Alkaline Phosphatase 158 U/L (45-117); Bilirubin, Direct 0.06 mg/dL (0.00-0.30); Globulin 3.8 g/dL (2.2-4.2); Protein, Total 6.3 g/dL (6.4-8.2)
== END ==
LOC: OLS.SW 05:00
PROVIDERS: PCP Family Medicine; Visit Provider Family Medicine
DX: E11.9 Type 2 diabetes mellitus without complications (principal); I10 Essential (primary) hypertension; Z79.899 Other long term (current) drug therapy
CPT/HCPCS: 36415; 80076; 80164; 85027

== ENCOUNTER → 2024-08-16 | Outpatient (REF) | payer MEDICARE, MEDICAID, SELFPAY ==
[2024-08-16 12:02] LABS: Hemoglobin A1c 6.6 % (3.8-5.6)
== END ==
LOC: OLS.SW 06:45
PROVIDERS: PCP Family Medicine; Visit Provider Internal Medicine
DX: E11.9 Type 2 diabetes mellitus without complications (principal)
CPT/HCPCS: 36415; 83036

== ENCOUNTER → 2024-08-20 | Outpatient (REF) | payer MEDICARE, MEDICAID, SELFPAY ==
[2024-08-20 09:39] LABS: Anion Gap 7 (5-15); BUN 25 mg/dL (7-18); BUN/Creat Ratio 23.1 RATIO (10-20); Calcium,Total 9.3 mg/dL (8.5-10.1); Chloride 107 mmol/L (98-107); Creatinine, Serum 1.08 mg/dL (0.55-1.02); EST Glomerular Filtration Rate 52 mL/min (>60); Est Glom Filt Rate - Afr Amer 62 mL/min (>60); Glucose 160 mg/dL (74-106); Potassium 4.4 mmol/L (3.5-5.1); Sodium Level 138 mmol/L (136-145)
== END ==
LOC: OLS.SW 05:00
PROVIDERS: PCP Family Medicine; Visit Provider Internal Medicine
DX: R41.0 Disorientation, unspecified (principal)
CPT/HCPCS: 36415; 80048

== ENCOUNTER → 2024-08-21 | Outpatient (REF) | payer MEDICARE, MEDICAID, SELFPAY ==
[2024-08-21 08:22] LABS: Absolute Neutrophil Count 4.1 X10^3/uL (2.0-7.7); Basophil# 0.03 X10^3/uL; Basophil% 0.5 % (0-1); Eosinophil# 0.15 X10^3/uL; Eosinophils% 2.3 % (0-5); Hematocrit 37.8 % (37-47); Hemoglobin 12.5 g/dL (12.0-15.0); Lymphocyte % 28.6 % (19-41); Mean Corp Hgb Conc 33.1 g/dL (32-36); Mean Corpuscular Hgb 28.1 pg (27.0-32.0); Mean Corpuscular Volume 84.9 fL (81-99); Mean Platelet Vol. 10.7 fl (6.2-12.0); Monocyte# 0.49 X10^3/uL; Monocyte% 7.4 % (0-10); NRBC Flagged by Analyzer 0 % (0-5); Neutrophil # 4.06 X10^3/uL (2.7-7.7); Neutrophil % 60.9 % (47-70); Platelet Count 200 K/mm3 (150-450); RBC Distribution Width CV 14.3 % (11.6-14.6); Red Blood Count 4.45 M/mm3 (4.2-5.4); White Blood Count 6.7 K/mm3 (4.4-11.0)
== END ==
LOC: OLS.SW 05:00
PROVIDERS: PCP Family Medicine; Visit Provider Internal Medicine
DX: R41.82 Altered mental status, unspecified (principal)
CPT/HCPCS: 85025

== ENCOUNTER → 2024-08-22 04:00 | Outpatient (REF) | payer MEDICARE, MEDICAID, SELFPAY ==
[2024-08-22 07:12] LABS: Absolute Neutrophil Count 4.8 X10^3/uL (2.0-7.7); Basophil# 0.02 X10^3/uL; Basophil% 0.3 % (0-1); Eosinophil# 0.14 X10^3/uL; Eosinophils% 1.9 % (0-5); Hematocrit 38.8 % (37-47); Hemoglobin 12.5 g/dL (12.0-15.0); Lymphocyte % 26.5 % (19-41); Mean Corp Hgb Conc 32.2 g/dL (32-36); Mean Corpuscular Hgb 27.3 pg (27.0-32.0); Mean Corpuscular Volume 84.7 fL (81-99); Mean Platelet Vol. 10.6 fl (6.2-12.0); Monocyte# 0.57 X10^3/uL; Monocyte% 7.5 % (0-10); NRBC Flagged by Analyzer 0 % (0-5); Neutrophil % 63.5 % (47-70); Platelet Count 242 K/mm3 (150-450); RBC Distribution Width SD 42.8 fl (35.1-43.9); Red Blood Count 4.58 M/mm3 (4.2-5.4); White Blood Count 7.6 K/mm3 (4.4-11.0)
[2024-08-22 07:25] LABS: Anion Gap 7 (5-15); BUN 27 mg/dL (7-18); BUN/Creat Ratio 20.3 RATIO (10-20); Calcium,Total 9.9 mg/dL (8.5-10.1); Chloride 104 mmol/L (98-107); Creatinine, Serum 1.33 mg/dL (0.55-1.02); EST Glomerular Filtration Rate 41 mL/min (>60); Est Glom Filt Rate - Afr Amer 49 mL/min (>60); Glucose 112 mg/dL (74-106); Potassium 4.3 mmol/L (3.5-5.1); Sodium Level 139 mmol/L (136-145)
== END ==
LOC: OLS.SW 04:00
PROVIDERS: PCP Family Medicine; Referring Provider Internal Medicine; Visit Provider Internal Medicine
DX: E11.65 Type 2 diabetes mellitus with hyperglycemia (principal); R53.83 Other fatigue
CPT/HCPCS: 36415; 80048; 85025

== ENCOUNTER → 2024-08-23 | Outpatient (REF) | payer MEDICARE, SELFPAY ==
[2024-08-24 08:48] LABS: Color, Urine Yellow (Yellow); Urine Clarity Turbid (Clear)
[2024-08-24 08:49] LABS: Glucose, Dipstick NEGATIVE (Normal); Ketone-Dipstick 1+ mg/dl (Negative); Urine Bilirubin Dipstick Negative (Negative)
[2024-08-24 08:50] LABS: Leukocyte Esterase-Dipstick 2+ /ul (Negative); Nitrite-Dipstick Negative (Negative); Occult Blood-Urine Negative /ul (Negative); Protein-Dipstick 500 mg/dl (Negative); Urine Urobilinogen Normal (Normal)
[2024-08-24 09:16] LABS: Bacteria 3+ /hpf (None Seen); Red Blood Cells-Urine 0-5 SEEN /hpf (0-5); White Blood Cells 50-100 SEEN /hpf (0-5)
[2024-08-24 09:17] LABS: Amorphous Sediment 3+ PHOS; Mucous, Urine 4+ /hpf (<or=2+); Triple Phosphate Crystals Ur 2+ /hpf (<or=1+)
[2024-08-24 09:18] LABS: Squamous Epithelial Cells - UA 0-5 SEEN /hpf (5-10)
== END ==
LOC: OLS.SW 22:00
PROVIDERS: PCP Family Medicine; Visit Provider Internal Medicine
DX: R41.82 Altered mental status, unspecified (principal)
CPT/HCPCS: 81001; 87077; 87086; 87088; 87186

== ENCOUNTER → 2024-08-28 | Outpatient (REF) | payer MEDICARE, SELFPAY ==
[2024-08-28 08:53] LABS: Hemoglobin 12.8 g/dL (12.0-15.0); Mean Corp Hgb Conc 32.8 g/dL (32-36); Mean Corpuscular Volume 85.3 fL (81-99); Mean Platelet Vol. 10.9 fl (6.2-12.0); Platelet Count 192 K/mm3 (150-450); RBC Distribution Width CV 14.1 % (11.6-14.6); RBC Distribution Width SD 43.7 fl (35.1-43.9); Red Blood Count 4.57 M/mm3 (4.2-5.4)
[2024-08-28 09:11] LABS: AST(SGOT) 12 U/L (15-37); Alanine Aminotransfer ALT/SGPT 10 U/L (13-56); Albumin, Serum 2.7 g/dL (3.2-5.0); Alkaline Phosphatase 146 U/L (45-117); Bilirubin, Direct 0.07 mg/dL (0.00-0.30); Globulin 4.1 g/dL (2.2-4.2); Protein, Total 6.8 g/dL (6.4-8.2)
[2024-08-28 09:14] LABS: Valproic Acid (Depakene) Level 9 ug/mL (50-100)
== END ==
LOC: OLS.SW 05:00
PROVIDERS: PCP Family Medicine; Visit Provider Internal Medicine
DX: E11.9 Type 2 diabetes mellitus without complications (principal)
CPT/HCPCS: 36415; 80076; 80164; 85027